=== PATIENT | female | born 1945 | race Caucasian/White ===

== ENCOUNTER 2019-02-20 18:30 | Emergency (ER) | payer MEDICARE, OTHER ==
[~2019-02-20] VITALS: Ht 160 cm; Wt 90.7 kg
--- OUTSIDE RECORDS SUMMARY | ~2019-02-20 | XMS | Clinical Summary ---
Demographics + + + | Address | [address] | | | [place] [address] | + + + | Home Phone | | + + + | Preferred Language | Unknown | + + + | Marital Status | | + + + | Synagogue Affiliation | Unknown | + + + | Race | Unknown | + + + | Ethnic Group | Unknown | + + + Author + + + | Author | [facility] | | | and [place] | + + + | Organization | [facility] | | | and [place] | + + + | Address | Unknown | + + + | Phone | Unavailable | + + + Support + + + + + | Name | Relationship | Address | Phone | + + + + + | Flor Henley | ECON | [address] | | | | | [place] | | | | | [address] | | + + + + + Care Team Providers + +------+ + | Care Aircraft Structural Fitter Name | Role | Phone | + +------+ + | Alvaro Bonilla MD | PP | | + +------+ + Allergies + + + + + + | Active Allergy | Reactions | Severity | Noted | Comments | | | | | Date | | + + + + + + | Adhesive & Tape | Other (See Comments) | Low | 10//20 | Redness from tape | | | | | 15 | | + + + + + + | Lisinopril | Other (See Comments) | Low | 10//20 | cough | | | | | 15 | | + + + + + + | Naproxen | Hives, Rash | Low | 09/09/20 | | | | | | 15 | | + + + + + + | Pregabalin | Hives, Rash | Low | 10/20 | | | | | | 15 | | + + + + + + | Rofecoxib | Hives, Rash | Low | 10/21/20 | | | | | | 15 | | + + + + + + | Sulfamethoxazole-Tri | Other (See Comments) | High | 09/09/20 | Shock and | | methoprim | | | 15 | unconsciousness | + + + + + + Current Medications + + +-------+---------+------+------+-------+ | Prescription | Sig. | Disp. | Refills | Star | End | Statu | | | | | | t | Date | s | | | | | | Date | | | + + +-------+---------+------+------+-------+ | atenolol | Take 50 mg by mouth | | | | | Activ | | (TENORMIN) 50 mg | Daily. | | | | | e | | tablet | | | | | | | + + +-------+---------+------+------+-------+ | traMADol (ULTRAM) | Take 50 mg by mouth | | | | | Activ | | 50 mg tablet | every 6 hours as | | | | | e | | | needed for Pain. | | | | | | + + +-------+---------+------+------+-------+ | atorvaSTATin | Take 20 mg by mouth | | | | | Activ | | (LIPITOR) 20 mg | nightly. | | | | | e | | tablet | | | | | | | + + +-------+---------+------+------+-------+ | furosemide (LASIX) | Take 40 mg by mouth | | | | | Activ | | 40 mg tablet | 2 times daily. | | | | | e | + + +-------+---------+------+------+-------+ | potassium chloride | Take 10 mEq by mouth | | | | | Activ | | (K-DUR,NURIA-CON) 10 | 2 times daily. | | | | | e | | MEQ ER tablet | | | | | | | + + +-------+---------+------+------+-------+ | Fexofenadine HCl | Take by mouth. As | | | | | Activ | | (RIKY ALLERGY PO) | needed | | | | | e | + + +-------+---------+------+------+-------+ | Multiple Vitamin | Take by mouth. | | | | | Activ | | (DAILY MULTIVITAMIN | | | | | | e | | PO) | | | | | | | + + +-------+---------+------+------+-------+ | | Take 1 tablet by | | | | | Activ | | HYDROcodone-acetamin | mouth every 6 hours | | | | | e | | ophen (NORCO) 5-325 | as needed for Pain. | | | | | | | mg per tablet | | | | | | | + + +-------+---------+------+------+-------+ | aspirin 325 mg | Take 325 mg by mouth | | | | | Activ | | tablet | Daily. | | | | | e | + + +-------+---------+------+------+-------+ | clopidogrel | Take 75 mg by mouth | | | | | Activ | | (PLAVIX) 75 mg | Daily. | | | | | e | | tablet | | | | | | | + + +-------+---------+------+------+-------+ Active Problems + + + | Problem | Noted Date | + + + | Depression | | + + + | Hypertension | | + + + | Hypercholesterolemia | | + + + | Fibromyalgia | | + + + Social History + +-------+ [...] + | Blood Pressure | 129/51 | 09/10/20150 PDT | + + + + | Pulse | 56 | 09/10/20151229 PDT | + + + + | Temperature | 36.8 C (98.2 F) | 09/10/2015 1029 PDT | + + + + | Respiratory Rate | 16 | 09/10/2015 1230 PDT | + + + + | Oxygen Saturation | 94% | 09/10/2015 1230 PDT | + + + + | Inhaled Oxygen | - | - | | Concentration | | | + + + + | Weight | 86.6 kg (191 lb) | 09/10/2015753 PDT | + + + + | Height | 160 cm (5' 3") | 09/10/2015753 PDT | + + + + | Body Mass Index | 33.83 | 09/10/2015753 PDT | + + + + Plan [...] | | | | | (#1) | 8 | | | + + + + + Results Not on filefrom Last 3 Months Insurance + +--------+ +--------+ +---------+ | Payer | Benefi | Subscriber | Type | Phone | Address | | | t Plan | ID | | | | | | / | | | | | | | Group | | | | | + +--------+ +--------+ +---------+ | MEDICARE | MEDICA | [id number] | Medica | [phone] | | | | RE | | re | [phone] | | | | PART A | | | | | | | AND B | | | | | + +--------+ +--------+ +---------+ | [employer] [place] | UNITED | [id number] | Indemn | [phone] | | | | OF | | ity | 1000 | | | | [place] | | | | | | | MDCR | | | | | | | SUPPL | | | | | + +--------+ +--------+ +---------+ + +--------+ +--------+ + + | Guarantor Name | Accoun | Relation to | Date | Phone | Billing Address | | | t Type | Patient | of | | | | | | | | | | + +--------+ +--------+ + + | FLOR HENLEY | Person | Self [birth year] Home: | [address] | | | [place] | | 1945 | [phone] | [place] [address] | | | [place] | | | [phone] | | + +--------+ +--------+ + +
--- OUTSIDE RECORDS SUMMARY | ~2019-02-20 | XMS | Clinical Summary ---
Demographics + + + | Address | [address] | | | [place] [address] | + + + | Home Phone | | + + + | Preferred Language | Unknown | + + + | Marital Status | | + + + | Methodist Affiliation | Unknown | + + + | Race | Unknown | + + + | Ethnic Group | Unknown | + + + Author + + + | Author | [facility] | + + + | Organization | [facility] | + + + | Address | Unknown | + + + | Phone | Unavailable | + + + Support + + + + + | Name | Relationship | Address | Phone | + + + + + | Bharath Henley | ECON | [address] | | | | | [place] | | | | | [address] | | + + + + + Care Team Providers + +------+ + | Care Route Rider Supervisor Name | Role | Phone | + [...] | Sulfur | Anaphylaxis | High | 08/15/20 | | | | | | 11 [...] +------+-------+ + | MEDICARE | MEDICA | [id number] | | | [address] | | | RE | | | | [place] [address] | | | IP-OP | | | | | + +--------+ +------+-------+ + | COMMERCIAL OTHER | COMMER | [id number] | | | | | | CIAL [...] | [address] | | | [place] | | 1945 | [phone] | [place] | | | [place] | | | [phone] | [phone] | + +--------+ +--------+ + +
--- OUTSIDE RECORDS SUMMARY | ~2019-02-20 | XMS | Clinical Summary ---
Demographics + + + | Address | [address] | | | [place] [address] | + + + | Home Phone | | + + + | Preferred Language | Unknown | + + + | Marital Status | | + + + | Buddhism Affiliation | Unknown | + + + | Race | Unknown | + + + | Ethnic Group | Unknown | + + + Author + + + | Author | [facility] | + + + | Organization | [facility] | + + + | Address | Unknown | + + + | Phone | Unavailable | + + + Support + + + + + | Name | Relationship | Address | Phone | + + + + + | Bharath Henley | ECON | [address] | | | | | [place] | | | | | [address] | | + + + + + Care Team Providers + +------+ + | Care Tapper Supervisor Name | Role | Phone | [...] +------+-------+ + | MEDICARE | MEDICA | [id number] | | | [address] | | | RE | | | | [place] [address] | | | IP-OP | | | | | + +--------+ +------+-------+ + | COMMERCIAL OTHER | COMMER | [id number] | | | | | | CIAL [...] | | [place] | | 1945 | [phone] | [place] | | | [place] | | | [phone] | [phone] | + +--------+ +--------+ + +
--- OUTSIDE RECORDS SUMMARY | ~2019-02-20 | XMS | Clinical Summary ---
Demographics + + + | Address | [address] | | | [place] [address] | + + + | Home Phone | | + + + | Preferred Language | Unknown | + + + | Marital Status | | + + + | Mandaeism Affiliation | Unknown | + + + | Race | Unknown | + + + | Ethnic Group | Unknown | + + + Author + + + | Author | [facility] | | | and [place]jandroana | + + + | Organization | [facility] | | | and Ale[place]andro[place] [...] [place] | | | | | [address] | | + + + + + Care Team Providers + +------+ + | Care Vet Assistant Name | Role | Phone | [...] +--------+ +---------+ | MEDICARE | MEDICA | [id number] | Medica | [phone] | | | | RE | | re | [phone] | | | | PART A | | | | | | | AND B | | | | | + +--------+ +--------+ +---------+ | [employer] [place] | [place] | [id number] | Indemn | [phone] | | | | OF | | ity | [address] | | | | [place] | | | | | | | [...] | | [place] | | 1945 | [phone] | [place] [address] | | | [place] | | | [phone] | | + +--------+ +--------+ + +
[~2019-02-20 18:30] MED LIST: ALLEGRA ALLERG180 MG PO; ASPIRIN325 MG PO; CALCIUM + VITA1 EACH PO; CENTRUM SILVER1 EACH PO; DOCUSATE SODIU100 MG PO; GLUCOPHAGE XR750 MG PO; KLOR-CON 1010 MEQ PO; LASIX40 MG PO; LIPITOR20 MG PO; NASACORT AQ16.5 GM NAS; PATANOL5 ML OU; PLAVIX75 MG PO; PROZAC20 MG PO; PSEUDOEPHEDRINE60 MG PO; TENORMIN50 MG PO; TRAMADOL HCL50 MG PO; VICODIN 5-3001 EACH PO; VICODIN 5-5001 EACH PO; VITAMIN D31000 UNI1 PO
[2019-02-20] MEDS ORDERED: NEURONTIN300 MG PO (19:04)
[2019-02-20] MEDS ORDERED: VITAMIN D-32000 UNIT PO (19:06)
[2019-02-20] MEDS ORDERED: MEMANTINE HCL10 MG PO (19:06)
[2019-02-20] MEDS ORDERED: OCUVEL CAPSULE1 EACH PO (19:07)
[2019-02-20] MEDS ORDERED: FLUOXETINE HCL10 MG PO (19:07)
[2019-02-20] MEDS ORDERED: CRESTOR10 MG PO (19:08)
[2019-02-20] MEDS ORDERED: LOSARTAN POTAS100 MG PO (19:08)
--- NOTE | 2019-02-21 15:33 | EKG ---
[facility] [address] [place], [place] [address] Signed Sinus bradycardia with marked sinus arrhythmia Otherwise normal ECG No previous ECGs available Confirmed by MILENA SOLORZANO DO ([id number]) on 02/21/2019 3:33:35 PM Electronically Signed By: MILENA SOLORZANO DO 02/21/19 1533 PATIENT NAME: STEVIE HENLEY JACK Electrocardiogram DATE OF : 45 PHYSICIAN: MILENA SOLORZANO DO REPORT #: [id number] REPORT IS CONFIDENTIAL AND NOT TO BE RELEASED WITHOUT AUTHORIZATION
== END 2019-02-21 01:34 | disposition home or self-care (01) ==
LOC: ED 18:30
DX: R07.89 Other chest pain (principal); I10 Essential (primary) hypertension; Z87.891 Personal history of nicotine dependence; Z88.2 Allergy status to sulfonamides; Z88.8 Allergy status to other drugs, medicaments and biological substances; Z79.899 Other long term (current) drug therapy; Z79.82 Long term (current) use of aspirin
CPT/HCPCS: 71045; 80053; 84484; 85025; 85379; 93005; 93010; 96374; 96375; 99285-25; J2405; J3010

== ENCOUNTER 2019-10-03 11:58 | Emergency (ER) | payer MEDICARE, OTHER ==
[~2019-10-03] VITALS: Ht 160 cm; Wt 88.5 kg
--- OUTSIDE RECORDS SUMMARY | ~2019-10-03 | XMS | Encounter Summary ---
Demographics + + + | Address | [address] | | | [place] [address] | + + + | Home Phone | | + + + | Preferred Language | Unknown | + + + | Marital Status | | + + + | Presybeterian Affiliation | Unknown | + + + | Race | Unknown | + + + | Ethnic Group | Unknown | + + + Author + + + | Author | [facility] | | | and [place]andro[place] | + + + | Organization | [facility] | | | and [place] | + + + | Address | Unknown | + + + | Phone | Unavailable | + + + Support + + + + + | Name | Relationship | Address | Phone | + + + + + | Bharath Hill | ECON | [address] | | | | | [place], [place] | | | | | [address] | | + + + + + Care Team Providers + +------+ + | Care Paralegal Assistant Name | Role | Phone | + +------+ + | Alvaro Bonilla MD | PCP | | + +------+ + Reason for Visit Auth/Cert +--------+--------+ + + + + | Status | Reason | Specialty | Diagnoses / | Referred By | Referred To | | | | | Procedures | Contact | Contact | +--------+--------+ + + + + | Closed | | | Diagnoses | | Sheri, | | | | | SHARI II | | Wade England MD | | | | | (vulvar | | [id number] | | | | | intraepithel | | [place] | | | | | ial | | [place] | | | | | neoplasia | | [place], [place]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 | | [address] | | | | | (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 | | [phone] | | | | | ial | | Fax: | | | | | neoplasia | | [phone] | | | | | II) | | | | | | | Procedures | | | | | | | Not Provided | | | +--------+--------+ + + + + Encounter Details +--------+---------+ + + + | Date | Type | Department | Care Team | Description | +--------+---------+ + + + | 09/10/ | Surgery | [facility] | Wade Wade, | [facility] | | 2014 | | MED [facility] INTRA OP | [id number] | of Vulva | | | | [address] | [place] | | | | | [place], [place] | [place] [address] | | | | | [address] | [phone] | | | | | [phone] | | | +--------+---------+ + + + Social History + +-------+ +--------+ + | Tobacco Use | Types | Packs/Day | Years | Date | | | | | Used | | + +-------+ +--------+ + | Former Smoker | | | 2 | Quit: 11/20/1969 | + +-------+ +--------+ + + + +---------+ + | Alcohol Use | Drinks/Week | oz/Week | Comments | + + +---------+ + | Yes | | | 2 drinks per year | + + +---------+ + + + + | Sex Assigned at | Date Recorded | | | | + + + | Not on file | | + + + + + + + | Job Start Date | Occupation | Industry | + + + + | Not on file | Not on file | Not on file | + + + + + + + + | Travel History | Travel Start | Travel End | + + + + + + | No recent travel history available. | + + documented as of this encounter Last Filed Vital Signs + + + + + | Vital Sign | Reading | Time Taken | Comments | + + + + + | Blood Pressure | 129/51 | 09/10/2015 12:30 PM | | | | | PDT | | + + + + + | Pulse | 56 | 09/10/2015 12:30 PM | | | | | PDT | | + + + + + | Temperature | 36.8 C (98.2 F) | 09/10/2015 10:29 AM | | | | | PDT | | + + + + + | Respiratory Rate | 16 | 09/10/2015 12:30 PM | | | | | PDT | | + + + + + | Oxygen Saturation | 94% | 09/10/2015 12:30 PM | | | | | PDT | | + + + + + | Inhaled Oxygen | - | - | | | Concentration | | | | + + + + + | Weight | 86.6 kg (191 lb) | 09/10/2015 7:54 AM | | | | | PDT | | + + + + + | Height | 160 cm (5' 3") | 09/10/2015 7:54 AM | | | | | PDT | | + + + + + | Body Mass Index | 33.83 | 09/10/2015 7:54 AM | | | | | PDT | | + + + + + documented in this encounter Medications at Time of Discharge + + + +---------+ + + | Medication | Sig | Dispensed | Refills | Start | End Date | | | | | | Date | | + + + +---------+ + + | aspirin 325 mg | Take 325 mg by mouth | | 0 | | | | tablet | Daily. | | | | | + + + +---------+ + + | atenolol | Take 50 mg by mouth | | 0 | | | | (TENORMIN) 50 mg | Daily. | | | | | | tablet | | | | | | + + + +---------+ + + | atorvaSTATin | Take 20 mg by mouth | | 0 | | | | (LIPITOR) 20 mg | nightly. | | | | | | tablet | | | | | | + + + +---------+ + + | clopidogrel | Take 75 mg by mouth | | 0 | | | | (PLAVIX) 75 mg | Daily. | | | | | | tablet | | | | | | + + + +---------+ + + | Fexofenadine HCl | Take by mouth. As | | 0 | | | | (RIKY ALLERGY PO) | needed | | | | | + + + +---------+ + + | furosemide (LASIX) | Take 40 mg by mouth | | 0 | | | | 40 mg tablet | 2 times daily. | | | | | + + + +---------+ + + | | Take 1 tablet by | | 0 | | | | HYDROcodone-acetamin | mouth every 6 hours | | | | | | ophen (NORCO) 5-325 | as needed for Pain. | | | | | | mg per tablet | | | | | | + + + +---------+ + + | Multiple Vitamin | Take by mouth. | | 0 | | | | (DAILY MULTIVITAMIN | | | | | | | PO) | | | | | | + + + +---------+ + + | potassium chloride | Take 10 mEq by mouth | | 0 | | | | (KMULUGETA KELLEY) 10 | 2 times daily. | | | | | | MEQ ER tablet | | | | | | + + + +---------+ + + | traMADol (ULTRAM) | Take 50 mg by mouth | | 0 | | | | 50 mg tablet | every 6 hours as | | | | | | | needed for Pain. | | | | | + + + +---------+ + + | warfarin | Take 1 tablet by | | 0 | 08/15/20 | | | (COUMADIN) 1 mg | mouth daily. | | | 11 | | | tablet | | | | | | + + + +---------+ + + documented as of this encounter Plan of Treatment Not on filedocumented as of this encounter Procedures + +--------+ + + + | Procedure Name | Priori | Date/Time | Associated Diagnosis | Comments | | | ty | | | | + +--------+ + + + | EXTRA GREEN TOP TUBE | Routin | 09/10/2015 | | Results for this | | | e | 9:34 AM | | procedure are in the | | | | PDT | | results section. | + +--------+ + + + | REPAIR A&P | | 09/10/2015 | SHARI II (vulvar | | | COLPORRHAPHY | | 9:17 AM | intraepithelial | | | | | PDT | neoplasia II) | | + +--------+ + + + | URINALYSIS WITH | Routin | 09/10/2015 | | Results for this | | MICROSCOPIC WITH | e | 8:51 AM | | procedure are in the | | CULTURE IF INDICATED | | PDT | | results section. | + +--------+ + + + | CBC NO DIFFERENTIAL | Routin | 09/10/2015 | | Results for this | | | e | 8:51 AM | | procedure are in the | | | | PDT | | results section. | + +--------+ + + + | CULTURE, URINE | Routin | 09/10/2015 | | Results for this | | | e | 8:51 AM | | procedure are in the | | | | PDT | | results section. | + +--------+ + + + | SURGICAL PATHOLOGY | Routin | 09/10/2015 | | Results for this | | EXAM | e | 12:00 AM | | procedure are in the | | | | PDT | | results section. | + +--------+ + + + documented in this encounter Results EXTRA GREEN TOP TUBE (09/10/2015 9:34 AM PDT) + +-------+ + + + | Component | Value | Ref Range | Performed | Pathologist | | | | | At | Signature | + +-------+ + + + | Extra Green | Done | | [facility] | | | Top Tube | | | [facility] | [facility] | [facility] - | | | | | | LABORATORY | | + +-------+ + + + + + | Specimen | + + | Blood | + + + + + + + | Performing | Address | City/State/Zipcode | Phone Number | | Organization | | | | + + + + + | [facility] | [address] | [place] | [phone] | | [facility] | | [address] | | | - LABORATORY | | | | + + + + + Culture, Urine (09/10/2015 8:51 AM PDT) + + + + + + | Component | Value | Ref Range | Performed | Pathologist | | | | | At | Signature | + + + + + + | Culture | 100,000 CFU/ml | | [facility] | | | | Klebsiella pneumoniae | | [facility] | | | | | | [facility] | | | | | | CENTER - | | | | | | LABORATORY | | + + + + + + + + | Specimen | + + | Urine - Urine | | specimen obtained by | | clean catch | | procedure (specimen) | + + + + +--------+ + | Organism | Antibiotic | Method | Susceptibility | + + +--------+ + | Klebsiella | Ampicillin | | Resistant | | pneumoniae | | | | + + +--------+ + | Klebsiella | Ampicillin + | | <=2: Sensitive | | pneumoniae | Sulbactam | | | + + +--------+ + | Klebsiella | Cefazolin | | <=4: Sensitive | | pneumoniae | | | | + + +--------+ + | Klebsiella | Cefoxitin | | <=4: Sensitive | | pneumoniae | | | | + + +--------+ + | Klebsiella | Ceftazidime | | <=1: Sensitive | | pneumoniae | | | | + + +--------+ + | Klebsiella | Ceftriaxone | | <=1: Sensitive | | pneumoniae | | | | + + +--------+ + | Klebsiella | Ciprofloxacin | | <=0.25: Sensitive | | pneumoniae | | | | + + +--------+ + | Klebsiella | Ertapenem | | <=0.5: Sensitive | | pneumoniae | | | | + + +--------+ + | Klebsiella | Gentamicin | | <=1: Sensitive | | pneumoniae | | | | + + +--------+ + | Klebsiella | Meropenem | | <=0.25: Sensitive | | pneumoniae | | | | + + +--------+ + | Klebsiella | Nitrofurantoin | | 32: Sensitive | | pneumoniae | | | | + + +--------+ + | Klebsiella | Tobramycin | | <=1: Sensitive | | pneumoniae | | | | + + +--------+ + | Klebsiella | Trimethoprim + | | <=20: Sensitive | | pneumoniae | Sulfamethoxazole | | | + + +--------+ + + + + + + | Performing | Address | City/State/Zipcode | Phone Number | | Organization | | | | + + + + + | [facility] | [address] | [place] | [phone] | | [facility] | | [address] | | | - LABORATORY | | | | + + + + + Urinalysis with Microscopic with Culture if Indicated (09/10/2015 8:51 AM PDT) + + + + + + | Component | Value | Ref Range | Performed | Pathologist | | | | | At | Signature | + + + + + + | Color | Yellow | Light Yellow, | [facility] | | | | | Yellow | [facility] | | | | | | [facility] | | | | | | C[facility] - | | | | | | LABORATORY | | + + + + + + | Clarity | Hazy (A) | Clear | [facility] | | | | | | [facility] | | | | | | [facility] | | | | | | C[facility] - | | | | | | LABORATORY | | + + + + + + | pH, Urine | 6.0 | 5.0 - 8.0 | [facility] | | | | | | [facility] | | | | | | [facility] | | | | | | C[facility] - | | | | | | LABORATORY | | + + + + + + | Specific | 1.025 | 1.001 - 1.030 | [facility] | | | Spencer | | | [facility] | | | | | | [facility]ICAL | | | | | | CENTER - | | | | | | LABORATORY | | + + + + + + | Protein, | Negative | Negative | [facility] | | | Urine | | | [facility] | | | | | | [facility] | | | | | | CENTER - | | | | | | LABORATORY | | + + + + + + | Blood, | Trace (A) | Negative | [facility] | | | Urine | | | [facility] | | | | | | [facility] | | | | | | CENTER - | | | | | | LABORATORY | | + + + + + + | Glucose, | Negative | Negative | [facility] | | | Urine | | | [facility] | | | | | | [facility] | | | | | | CENTER - | | | | | | LABORATORY | | + + + + + + | Ketones, | Negative | Negative | [facility] | | | Urine | | | [facility] | | | | | | [facility] | | | | | | CENTER - | | | | | | LABORATORY | | + + + + + + | Bilirubin, | Negative | Negative | [facility] | | | Urine | | | [facility] | | | | | | [facility]ICAL | | | | | | CENTER - | | | | | | LABORATORY | | + + + + + + | Nitrite, | Negative | Negative | [facility] | | | Urine | | | [facility] | | | | | | [facility] | | | | | | CENTER - | | | | | | LABORATORY | | + + + + + + | Leukocyte | Large (A) | Negative | [facility] | | | Esterase, | | | [facility] | | | Urine | | | MEDICAL | | | | | | CENTER - | | | | | | LABORATORY | | + + + + + + | Urobilinoge | 0.2 E.U./dL | 0.2 E.U./dL, | [facility] | | | n, Urine | | 1.0 E.U./dL | [facility] | | | | | | MEDICAL | | | | | | CENTER - | | | | | | LABORATORY | | + + + + + + | WBC UA | 15-25 (A) | 0 - 2 /HPF | [facility] | | | | | | [facility] | | | | | | [facility] | | | | | | CENTER - | | | | | | LABORATORY | | + + + + + + | RBC UA | 2-5 (A) | 0 - 2 /HPF | [facility] | | | | | | [facility] | | | | | | MEDICAL | | | | | | CENTER - | | | | | | LABORATORY | | + + + + + + | SQUAMOUS | 5-10 (A) | 0 - 2 /LPF | [facility] | | | EPITHELIAL | | | [facility] | | | UA | | | MEDICAL | | | | | | CENTER - | | | | | | LABORATORY | | + + + + + + | BACTERIA UA | 3+ (A) | Negative /HPF | [facility] | | | | | | [facility] | | | | | | [facility]ICAL | | | | | | CENTER - | | | | | | LABORATORY | | + + + + + + | URINE | Urine Culture Set Up | | [facility] | | | COMMENT | | | [facility] | | | | | | [facility]ICAL | | | | | | CENTER - | | | | | | LABORATORY | | + + + + + + + + | Specimen | + + | Urine - Urine | | specimen obtained by | | clean catch | | procedure (specimen) | + + + + + + + | Performing | Address | City/State/Zipcode | Phone Number | | Organization | | | | + + + + + | [facility] | [address] | [place] | [phone] | | [facility] | | [address] | | | - LABORATORY | | | | + + + + + CBC no Differential (09/10/2015 8:51 AM PDT) + +-------+ + + + | Component | Value | Ref Range | Performed | Pathologist | | | | | At | Signature | + +-------+ + + + | WBC | 6.1 | 4.0 - 11.0 K/uL | [facility] | | | | | | [facility] | | | | | | [facility] | | | | | | [facility] - | | | | | | LABORATORY | | + +-------+ + + + | RBC | 4.14 | 3.70 - 5.20 | [facility] | | | | | M/uL | [facility] | | | | | | [facility] | | | | | | CENTER - | | | | | | LABORATORY | | + +-------+ + + + | Hemoglobin | 12.5 | 11.5 - 16.0 | [facility] | | | | | g/dL | [facility] | | | | | | [facility] | | | | | | CENTER - | | | | | | LABORATORY | | + +-------+ + + + | Hematocrit | 37.0 | 34.0 - 47.0 % | [facility] | | | | | | [facility] | | | | | | [facility] | | | | | | C[facility] - | | | | | | LABORATORY | | + +-------+ + + + | MCV | 89.3 | 83.0 - 101.0 fL | [facility] | | | | | | [facility] | | | | | | [facility] | | | | | | C[facility] - | | | | | | LABORATORY | | + +-------+ + + + | MCH | 30.1 | 28.0 - 35.0 pg | [facility] | | | | | | [facility] | | | | | | [facility] | | | | | | [facility] - | | | | | | LABORATORY | | + +-------+ + + + | MCHC | 33.8 | 32.0 - 36.0 | [facility] | | | | | g/dL | [facility] | | | | | | [facility] | | | | | | CENTER - | | | | | | LABORATORY | | + +-------+ + + + | RDW-CV | 13.5 | <15.0 % | [facility] | | | | | | [facility] | | | | | | [facility] | | | | | | CENTER - | | | | | | LABORATORY | | + +-------+ + + + | Platelet | 204 | 140 - 440 K/uL | [facility] | | | Count | | | [facility] | | | [facility] | [facility] | | | | | | CENTER - | | | | | | LABORATORY | | + +-------+ + + + | MPV | 7.5 | fL | [facility] | | | | | | [facility] | | | | | | [facility] | | | | | | CENTER - | | | | | | LABORATORY | | + +-------+ + + + + + | Specimen | + + | Blood | + + + + + + + | Performing | Address | City/State/Zipcode | Phone Number | | Organization | | | | + + + + + | [facility] | [address] | [place] | [phone] | | [facility] | | [address] | | | - LABORATORY | | | | + + + + + Surgical Pathology Exam (09/10/2015 12:00 AM PDT) + + | Specimen | + + | | + + + + + | Narrative | Performed At | + + + | SPECIMEN(S): A LEFT VULVAR EXCISION SPECIMEN SOURCE: A. LEFT | [facility] | | VULVAR EXCISION CLINICAL HISTORY: N90.1 (moderate vulvar | [facility] | | dysplasia) FINAL PATHOLOGIC DIAGNOSIS: Left vulva, excisional | | | biopsy: - Changes consistent with previous biopsy; reactive and | | | regenerative epithelial changes adjacent to biopsy site; negative for | | | residual dysplasia. DNN:alix:C2NR GROSS DESCRIPTION: The | | | specimen is submitted in formalin and properly identified, designated | | | "vulvar excision, left labia". The specimen consists of a 4.2 x 1.2 x | | | 0.2 cm ellipse of la somewhat wrinkled mucosa. Centrally there is a | | | healed round defect 0.5 cm in diameter. The resection margin is inked | | | black and is submitted in serial cross section in three cassettes. | | | DDN:[facility] MICROSCOPIC EXAMINATION: Histologic sections of all | | | submitted blocks are examined by light microscopy. These findings, | | | together with the gross examination, support the pathologic diagnosis. | | | PERFORMING LABORATORY: Tissue processing and slide preparation | | | were performed by [facility], [address], | | | [place] [address] (Coffee Sommelier: Ascencion Juan M.D.; CLIA#: | | | [id number]). Professional interpretation was performed by [facility] | | | [facility], [address], [place] [address] | | | (Coffee Sommelier: Ascencion Juan M.D.; CLIA#: [id number]). | | | Diagnostician: Dread Schmitz MD Pathologist Electronically Signed | | | 09/11/2015 | | + + + + +---------+ + + | Performing | Address | City/State/Zipcode | Phone Number | | Organization | | | | + +---------+ + + | [facility] | | | | | [facility] | | | | + +---------+ + + documented in this encounter Visit Diagnoses + + | Diagnosis | + + | SHARI II (vulvar intraepithelial neoplasia II) Vulvar intraepithelial neoplasia II [SHARI | | II] | + + documented in this encounter Administered Medications + +--------+ + +------+ + | Medication Order | MAR | Action | Dose | Rate | Site | | | Action | Date | | | | + +--------+ + +------+ + | bacitracin topical ointment | Given | 09/10/20 | 1 | | Surgical | | PRN, Starting Rachael 09/10/15 at | | 15 10:18 | Applicat | | Site | | 1018, Intra-op | | AM PDT | ion | | | + +--------+ + +------+ + +---+---+ | | | +---+---+ + +-------+ +--------+---+ + | bupivacaine (MARCAINE) 0.5% | Given | 09/10/20 | 10 mLs | | Surgical | | injection PRN, Starting Rachael | | 15 10:17 | | | Site | | 09/10/15 at 1017, Intra-op | | AM PDT | | | | + +-------+ +--------+---+ + +---+---+ | | | +---+---+ + +---------+ +---+-------+---+ | lactated ringers (LR) infusion | New Bag | 09/10/20 | | 100 | | | at 10-100 mL/hr, Intravenous, | | 15 8:53 | | mL/hr | | | CONTINUOUS, Starting Rachael 09/10/15 | | AM PDT | | | | | at 0845, TKO., Pre-op | | | | | | + +---------+ +---+-------+---+ +---+---+ | | | +---+---+ + +-------+ + +---+ + | vasopressin (PITRESSIN) | Given | 09/10/20 | 20 Units | | Surgical | | injection PRN, Starting Rachael | | 15 10:17 | | | Site | | 09/10/15 at 1017, Intra-op | | AM PDT | | | | + +-------+ + +---+ + +---+---+ | | | +---+---+ documented in this encounter
--- OUTSIDE RECORDS SUMMARY | ~2019-10-03 | XMS | Encounter Summary ---
Demographics + + + | Address | [address] | | | [place] [address] | + + + | Home Phone | | + + + | Preferred Language | Unknown | + + + | Marital Status | | + + + | Synagogue Affiliation | Unknown | + + + | Race | Unknown | + + + | Ethnic Group | Unknown | + + + Author + + + | Author | [facility] | | | and [place] | + + + | Organization | [facility] | | | and [place] | + + + | Address | Unknown | + + + | Phone | Unavailable | + + + Support + + + + + | Name | Relationship | Address | Phone | + + + + + | Bharath Hill | ECON | [address] | | | | | [place], [place] | | | | | [address] | | + + + + + Care Team Providers + +------+ + | Care Slat Basket Maker Machine Name | Role | Phone | + +------+ + PCP | Unavailable | + +------+ + Encounter Details +--------+ + + + + | Date | Type | Department | Care Team | Description | +--------+ + + + + | 10/12/ | Hospital | [facility] | | | | 2008 | Encounter | MED CTR XRAY [address] | | | | | | [address] [place] | | | | | | [place] [address] | | | | | | [phone] | | | +--------+ + + + + Social History + +-------+ +--------+------+ | Tobacco Use | Types | Packs/Day | Years | Date | | | | | Used | | + +-------+ +--------+------+ | Never Assessed | | | | | + +-------+ +--------+------+ + + + | Sex Assigned at [...] Not on filedocumented as of this encounter Visit Diagnoses Not on filedocumented in this encounter"
--- OUTSIDE RECORDS SUMMARY | ~2019-10-03 | XMS | Encounter Summary ---
Demographics + + + | Address | [address] | | | [place] [address] | + + + | Home Phone | | + + + | Preferred Language | Unknown | + + + | Marital Status | | + + + | Yazdanism Affiliation | Unknown | + + + | Race | Unknown | + + + | Ethnic Group | Unknown | + + + Author + + + | Author | [facility] | | | and [place] | + + + | Organization | [facility] | | | and [place] | + + + | Address | Unknown | + + + | Phone | Unavailable | + + + Support + + + + + | Name | Relationship | Address | Phone | + + + + + | Bharath Hill | ECON | [address] | | | | | [place], [place] | | | | | [address] | | + + + + + Care Team Providers + +------+ + | Care Preventive Medicine Specialist Name | Role | Phone | + +------+ + PCP | Unavailable | + +------+ + Encounter Details +--------+ + + + + | Date | Type | Department | Care Team | Description | +--------+ + + + + | 10/27/ | Hospital | [facility] | | | | 2009 | Encounter | MED CTR MP INTRA OP | | | | | | [address] | | | | | | [place] | | | | | | [address] | | | | | | [phone] | | | +--------+ + + + [...]
--- OUTSIDE RECORDS SUMMARY | ~2019-10-03 | XMS | Clinical Summary ---
Demographics + + + | Address | [address] | | | [place] [address] | + + + | Home Phone | | + + + | Preferred Language | Unknown | + + + | Marital Status | | + + + | Druze Affiliation | Unknown | + + + | Race | Unknown | + + + | Ethnic Group | Unknown | + + + Author + + + | Author | [facility] | | | and [place] | + + + | Organization | [facility] | | | and [...] [place], [place] | | | | | [address] | | + + + + + Care Team Providers + +------+ + | Care Gun Fertilizer Name | Role | Phone | + +------+ + | Alvaro Bonilla MD | PCP | | + +------+ + Allergies + + + + + + | Active Allergy | Reactions | Severity | Noted | Comments | | | | | Date | | + + + + + + | Adhesive & Tape | Other (See Comments) | Medium | 09/09/20 | Redness from tape | | | | | 15 | Redness from tape | + + + + + + | Lisinopril | Other (See | Low | 07/25/20 | cough | | | Comments), Cough | | 13 | | + + + + + + | Naproxen | Hives, Rash | Medium | 07/25/20 | | | | | | 13 | | + + + + + + | Pregabalin | Hives, Rash, | Medium | 07/25/20 | | | | Swelling | | 13 | | + + + + + + | Rofecoxib | Hives, Rash | Medium | 07/25/20 | | | | | | 13 | | + + + + + + | Sulfamethoxazole-Tri | Other (See | High | 07/25/20 | Shock and | | methoprim | Comments), | | 13 | unconsciousness | | | Anaphylaxis | | | | + + + + + + | Sulfur | Anaphylaxis | High | 07/04/20 | | | | | | 11 | | + + + + + + Medications + + + +---------+------+------+-------+ | Medication | Sig | Dispensed | Refills | Star | End | Statu | | | | | | t | Date | s | | | | | | Date | | | + + + +---------+------+------+-------+ | atenolol | Take 50 mg by mouth | | 0 | | | Activ | | (TENORMIN) 50 mg | Daily. | | | | | e | | tablet | | | | | | | + + + +---------+------+------+-------+ | traMADol (ULTRAM) | Take 50 mg by mouth | | 0 | | | Activ | | 50 mg tablet | every 6 hours as | | | | | e | | | needed for Pain. | | | | | | + + + +---------+------+------+-------+ | atorvaSTATin | Take 20 mg by mouth | | 0 | | | Activ | | (LIPITOR) 20 mg | nightly. | | | | | e | | tablet | | | | | | | + + + +---------+------+------+-------+ | furosemide (LASIX) | Take 40 mg by mouth | | 0 | | | Activ | | 40 mg tablet | 2 times daily. | | | | | e | + + + +---------+------+------+-------+ | potassium chloride | Take 10 mEq by mouth | | 0 | | | Activ | | (K-DUR,JULIANEOR-CON) 10 | 2 times daily. | | | | | e | | MEQ ER tablet | | | | | | | + + + +---------+------+------+-------+ | Fexofenadine HCl | Take by mouth. As | | 0 | | | Activ | | (RIKY ALLERGY PO) | needed | | | | | e | + + + +---------+------+------+-------+ | Multiple Vitamin | Take by mouth. | | 0 | | | Activ | | (DAILY MULTIVITAMIN | | | | | | e | | PO) | | | | | | | + + + +---------+------+------+-------+ | | Take 1 tablet by | | 0 | | | Activ | | HYDROcodone-acetamin | mouth every 6 hours | | | | | e | | ophen (NORCO) 5-325 | as needed for Pain. | | | | | | | mg per tablet | | | | | | | + + + +---------+------+------+-------+ | aspirin 325 mg | Take 325 mg by mouth | | 0 | | | Activ | | tablet | Daily. | | | | | e | + + + +---------+------+------+-------+ | clopidogrel | Take 75 mg by mouth | | 0 | | | Activ | | (PLAVIX) 75 mg | Daily. | | | | | e | | tablet | | | | | | | + + + +---------+------+------+-------+ | fexofenadine | Take 180 mg by mouth | | 0 | | | Activ | | (RIKY) 180 mg | daily. | | | | | e | | tablet | | | | | | | + + + +---------+------+------+-------+ | atorvaSTATin | Take 20 mg by mouth | | 0 | | | Activ | | (LIPITOR) 20 mg | daily. | | | | | e | | tablet | | | | | | | + + + +---------+------+------+-------+ | warfarin | Take 1 tablet by | | 0 | 09/2 | | Activ | | (COUMADIN) 1 mg | mouth daily. | | | 6/20 | | e | | tablet | | | | 11 | | | + + + +---------+------+------+-------+ | triamcinolone | 2 sprays by Nasal | | 0 | | | Activ | | (NASACORT) 55 | route daily. | | | | | e | | mcg/nasal spray | | | | | | | + + + +---------+------+------+-------+ | pseudoePHEDrine | Take 60 mg by mouth | | 0 | | | Activ | | (SUDAFED) 30 mg | 2 (two) times daily | | | | | e | | tablet | as needed. | | | | | | + + + +---------+------+------+-------+ | potassium chloride | Take 10 mEq by mouth | | 0 | | | Activ | | (MICRO-K) 10 mEq CR | 2 (two) times | | | | | e | | capsule | daily. | | | | | | + + + +---------+------+------+-------+ | olopatadine | Place 1 drop into | | 0 | | | Activ | | (PATANOL) 0.1% | both eyes as needed. | | | | | e | | ophthalmic solution | | | | | | | + + + +---------+------+------+-------+ | Multiple | Take 1 tablet by | | 0 | | | Activ | | Vitamins-Minerals | mouth daily. | | | | | e | | (MULTIVITAMIN WITH | | | | | | | | MINERALS) tablet | | | | | | | + + + +---------+------+------+-------+ | losartan (COZAAR) | Take 50 mg by mouth | | 0 | | | Activ | | 50 mg tablet | daily. | | | | | e | + + + +---------+------+------+-------+ | gabapentin | Take 100 mg by mouth | | 0 | | | Activ | | (NEURONTIN) 100 mg | 3 (three) times | | | | | e | | capsule | daily. | | | | | | + + + +---------+------+------+-------+ | FLUoxetine | Take 10 mg by mouth | | 0 | | | Activ | | (PROZAC) 10 mg | nightly. | | | | | e | | capsule | | | | | | | + + + +---------+------+------+-------+ | docusate sodium | Take 100 mg by mouth | | 0 | | | Activ | | (COLACE) 100 mg | 2 (two) times daily | | | | | e | | capsule | as needed. | | | | | | + + + +---------+------+------+-------+ | cholecalciferol | Take 1,000 Units by | | 0 | | | Activ | | (VITAMIN D-3) 1,000 | mouth daily. | | | | | e | | units capsule | | | | | | | + + + +---------+------+------+-------+ | | Take 1 tablet by | | 0 | | | Activ | | acetaminophen-codein | mouth every 3 | | | | | e | | e (TYLENOL #3) | (three) hours as | | | | | | | 300-30 mg per tablet | needed. | | | | | | + + + +---------+------+------+-------+ | OYSTER SHELL PO | Take 600 mg by mouth | | 0 | | | Activ | | | 2 (two) times | | | | | e | | | daily. | | | | | | + + + +---------+------+------+-------+ | UNABLE TO FIND | Take 325 mg by mouth | | 0 | | | Activ | | | daily. | | | | | e | + + + +---------+------+------+-------+ Active Problems + + + | Problem | Noted Date | + + + | Depression | | + + + | Hypertension | | + + + | Hypercholesterolemia | | + + + | Fibromyalgia | | + + + Family History + + +------+ + | Medical History | Relation | Name | Comments | + + +------+ + | Coronary artery | Father | | | | disease | | | | + + +------+ + | Heart disease | Father | | | + + +------+ + | Alzheimer's disease | Mother | | | + + +------+ + | Coronary artery | Mother | | | | disease | | | | + + +------+ + | Heart disease | Mother | | | + + +------+ + | Hypertension | Mother | | | + + +------+ + + +------+ + + | Relation | Name | Status | Comments | + +------+ + + | Father | | | | + +------+ + + | Father | | | | + +------+ + + | Mother | | | | + +------+ + + | Mother | | | | + +------+ + + Social History + +-------+ +--------+ + | Tobacco Use | Types | Packs/Day | Years | Date | | | | | Used | | + +-------+ +--------+ + | Former Smoker | | | 2 | Quit: 11/20/1969 | + +-------+ +--------+ + + + | Comments: quit 40 yrs ago | + + + + +---------+ + | Alcohol Use | Drinks/Week | oz/Week | Comments | + + +---------+ + | Yes | | | Alcoholic | | | | | Drinks/day: per | | | | | month | + + +---------+ + + + [...] recent travel history available. | + + Last Filed Vital Signs + + + + + | Vital Sign | Reading | Time Taken | Comments | + + + + + | Blood Pressure | 166/83 | 08/09/2018 3:45 PM | | | | | PDT | | + + + + + | Pulse | 61 | 08/09/2018 3:45 PM | | | | | PDT [...] | | + + + + + Plan of Treatment + + + + + | Health Maintenance | Due Date | Last Done | Comments | + + + + + | Vaccine: | | | | | Dtap/Tdap/Td (1 - | 4 | | | | Tdap) | | | | + + + + + | Vaccine: Zoster (1 | | | | | of 2) | 5 | | | + + + + + | Breast Cancer | | | | | Screening | 0 | | | + + + + + | Vaccine: | | | | | Pneumococcal 65+ (1 | 0 | | | | of 2 - PCV13) | | | | + + + + + | Vaccine: Influenza | | | | | (#1) | 9 | | | + + + + + Results Not on filefrom Last 3 Months Insurance + +--------+ +--------+ +---------+--------+ | Payer | Benefi | Subscriber | Effect | Phone | Address | Type | | | t Plan | ID | anjum | | | | | | / | | Dates | | | | | | Group | | | | | | + +--------+ +--------+ +---------+--------+ | MEDICARE | MEDICA | [id number] | | [phone] | | Medica | | | RE | | 010-Pr | 5 | | re | | | PART A | | esent | | | | | | AND B | | | | | | + +--------+ +--------+ +---------+--------+ | [employer] | [employer] | [id number] | | [phone] | | Indemn | | | OF | | 010-Pr | 0 | | ity | | | [place] | | esent | | | | | | MDCR | | | | | | | | SUPPL | | | | | | + +--------+ +--------+ +---------+--------+ + +--------+ +--------+ + + | Guarantor Name | Accoun | Relation to | Date | Phone | Billing Address | | | t Type | Patient | of | | | | | | | | | | + +--------+ +--------+ + + | [place] | Person | Self | [birth year] | [address] | | | al/Fam | | 1945 | [phone] | [place] [address] | | | pattie | | | 0 (Home) | | + +--------+ +--------+ + + Advance Directives + + + + + | Type | Date Recorded | Patient | Explanation | | | | Supervisor Of Way | | + + + + + | Power of | | | | | V Belt Coverer | | | | + + + + + | Advance | 09/10/2015 | | | | Directive | 7:40 AM | | | + + + + + + + + + + | Code Status | Date | Date | Comments | | | Activated | Inactivated | | + + + + + | Full Code | 09/10/2015 | 09/10/2015 | | | | 11:34 AM | 3:00 PM | | + + + + +
--- OUTSIDE RECORDS SUMMARY | ~2019-10-03 | XMS | Encounter Summary ---
Demographics + + + | Address | [address] | | | [place] [address] | + + + | Home Phone | | + + + | Preferred Language | Unknown | + + + | Marital Status | | + + + | Sabianist Affiliation | Unknown | + + + | Race | Unknown | + + + | Ethnic Group | Unknown | + + + Author + + + | Author | [facility] | | | and [place]andro[place] | + + + | Organization | [facility] | | | and [...] [place], [place] | | | | | [address] | | + + + + + Care Team Providers + +------+ + | Care Recreation Therapy Aide Name | Role | Phone | + +------+ + PCP | Unavailable | + +------+ + Encounter Details +--------+ + + + + | Date | Type | Department | Care Team | Description | +--------+ + + + + | 05/11/ | Hospital | [facility] | | | | 1994 | Encounter | MED CTR XRAY [address] | | | | | | [address] | | | | | | [place] [address] | | | | | | [phone] | | | +--------+ + + + [...]
--- OUTSIDE RECORDS SUMMARY | ~2019-10-03 | XMS | Clinical Summary ---
Demographics + + + | Address | [address] | | | [place] [address] | + + + | Home Phone | | + + + | Preferred Language | Unknown | + + + | Marital Status | | + + + | Synagogue Affiliation | Unknown | + + + | Race | Unknown | + + + | Ethnic Group | Unknown | + + + Author + + + | Author | [facility] (Historical as of | | | 07-06-19) | + + + | Organization | [facility] (Historical as of | | | 07-06-19) | + + + | Address | Unknown | + + + | Phone | Unavailable | + + + Support + + + + + | Name | Relationship | Address | Phone | + + + + + | LizMadhuBharath | ECON | [address] | | | | | [place] | | | | | [address] | | + + + + + Care Team Providers + +------+ + | Care Light Bulb Replacer Name | Role | Phone | + +------+ + | Jennifer Alvarenga MD | PP | | + +------+ + Allergies + + + + + + | Active Allergy | Reactions | Severity | Noted | Comments | | | | | Date | | + + + + + + | Adhesive Tape | Other (See Comments) | Medium | 09/09/20 | Redness from tape | | | | | 15 | | + + + + + + | Lisinopril | Cough | Low | 07/25/20 | | | | | | 13 | | + + + + + + | Pregabalin | Swelling | Medium | 07/25/20 | | | | | | 13 | | + + + + + + | Naproxen | Rash | Medium | 07/25/20 | | | | | | 13 | | + + + + + + | Sulfamethoxazole-Tri | Anaphylaxis | High | 07/25/20 | | | methoprim | | | 13 | | + + + + + + | Sulfur | Anaphylaxis | High | 07/04/20 | | | | | | 11 | | + + + + + + | Rofecoxib | Rash | Medium | 07/25/20 | | | | | | 13 | | + + + + + + Current Medications + + +--------+---------+------+------+-------+ | Prescription | Sig. | Disp. | Refills | Star | End | Statu | | | | | | t | Date | s | | | | | | Date | | | + + +--------+---------+------+------+-------+ | fluoxetine | Take 10 mg by mouth | | | | | Activ | | (PROZAC) 10 MG | nightly. | | | | | e | | capsule | | | | | | | + + +--------+---------+------+------+-------+ | atenolol | Take 50 mg by mouth | | | | | Activ | | (TENORMIN) 50 MG | daily. | | | | | e | | tablet | | | | | | | + + +--------+---------+------+------+-------+ | tramadol (ULTRAM) | Take 50 mg by mouth | | | | | Activ | | 50 MG tablet | every 6 (six) hours | | | | | e | | | as needed. | | | | | | + + +--------+---------+------+------+-------+ | atorvastatin | Take 20 mg by mouth | | | | | Activ | | (LIPITOR) 20 MG | daily. | | | | | e | | tablet | | | | | | | + + +--------+---------+------+------+-------+ | furosemide (LASIX) | Take 40 mg by mouth | | | | | Activ | | 40 MG tablet | daily. | | | | | e | + + +--------+---------+------+------+-------+ | potassium chloride | Take 10 mEq by mouth | | | | | Activ | | (MICRO-K) 10 MEQ CR | 2 (two) times | | | | | e | | capsule | daily. | | | | | | + + +--------+---------+------+------+-------+ | pseudoephedrine | Take 60 mg by mouth | | | | | Activ | | (SUDOPHED) 30 MG | 2 (two) times daily | | | | | e | | tablet | as needed. | | | | | | + + +--------+---------+------+------+-------+ | Multiple | Take 1 tablet by | | | | | Activ | | Vitamins-Minerals | mouth daily. | | | | | e | | (MULTIVITAMIN WITH | | | | | | | | MINERALS) tablet | | | | | | | + + +--------+---------+------+------+-------+ | clopidogrel | Take 75 mg by mouth | | | | | Activ | | (PLAVIX) 75 MG | daily. | | | | | e | | tablet | | | | | | | + + +--------+---------+------+------+-------+ | OYSTER SHELL PO | Take 600 mg by mouth | | | | | Activ | | | 2 (two) times | | | | | e | | | daily. | | | | | | + + +--------+---------+------+------+-------+ | fexofenadine | Take 180 mg by mouth | | | | | Activ | | (RIKY) 180 MG | daily. | | | | | e | | tablet | | | | | | | + + +--------+---------+------+------+-------+ | | Take 1 tablet by | | | | | Activ | | acetaminophen-codein | mouth every 3 | | | | | e | | e (TYLENOL #3) | (three) hours as | | | | | | | 300-30 MG per tablet | needed. | | | | | | + + +--------+---------+------+------+-------+ | warfarin | Take 1 tablet by | 30 | 11 | 07/22 | | Activ | | (COUMADIN) 1 MG | mouth daily. | tablet | | 05/09 | | e | | tabletIndications: | | | | 11 | | | | PVD (peripheral | | | | | | | | vascular disease) | | | | | | | | (HCC) | | | | | | | + + +--------+---------+------+------+-------+ | olopatadine | Place 1 drop into | | | | | Activ | | (PATANOL) 0.1 % | both eyes as needed. | | | | | e | | ophthalmic solution | | | | | | | + + +--------+---------+------+------+-------+ | docusate sodium | Take 100 mg by mouth | | | | | Activ | | (COLACE) 100 MG | 2 (two) times daily | | | | | e | | capsule | as needed. | | | | | | + + +--------+---------+------+------+-------+ | triamcinolone | 2 sprays by Nasal | | | | | Activ | | (NASACORT AQ) 55 | route daily. | | | | | e | | MCG/ACT nasal | | | | | | | | inhaler | | | | | | | + + +--------+---------+------+------+-------+ | aspirin 325 MG | Take 325 mg by mouth | | | | | Activ | | buffered tablet | daily. | | | | | e | + + +--------+---------+------+------+-------+ | Cholecalciferol | Take 1,000 Units by | | | | | Activ | | (VITAMIN D-3) 1000 | mouth daily. | | | | | e | | UNITS CAPS | | | | | | | + + +--------+---------+------+------+-------+ | gabapentin | Take 100 mg by mouth | | | | | Activ | | (NEURONTIN) 100 MG | 3 (three) times | | | | | e | | capsule | daily. | | | | | | + + +--------+---------+------+------+-------+ | losartan (COZAAR) | Take 50 mg by mouth | | | | | Activ | | 50 MG tablet | daily. | | | | | e | + + +--------+---------+------+------+-------+ Active Problems Not on file Family History + + +------+ + | Medical History | Relation | Name | Comments | + + +------+ + | Coronary art dis | Father | | | + + +------+ + | Heart disease | Father | | | + + +------+ + | Alzheimer's disease | Mother | | | + + +------+ + | Coronary art dis | Mother | | | + + [...] +------+ + + Social History + +-------+ +--------+------+ | Tobacco Use | Types | Packs/Day | Years | Date | | | | | Used | | + +-------+ +--------+------+ | Former Smoker | | | 10 | | + +-------+ +--------+------+ + +---+---+---+ | Smokeless Tobacco: | | | | | Never Used | | | | + +---+---+---+ + + | Comments: quit 40 yrs ago | + + + + +---------+ + | Alcohol Use | Drinks/We | oz/Week | Comments | | | ek | | | + + +---------+ + | Yes | 1 | 0.6 | per month | | | Glasses | | | | | of wine | | | + + +---------+ + + + + | Sex Assigned at | Date Recorded | | | | + + + | Not on file | | + + + Last Filed Vital Signs + + + + | Vital Sign | Reading | Time Taken | + + + + | Blood Pressure | 166/83 | 08/09/2018 3:45 PM PDT | + + + + | Pulse | 61 | 08/09/2018 3:45 PM PDT | + + + + | Temperature | 36.9 C (98.4 F) | 07/25/2013 2:00 PM PDT | + + + + | Respiratory Rate | 16 | 07/25/2013 2:00 PM PDT | + + + + | Oxygen Saturation | 94% | 08/09/2018 3:45 PM PDT | + + + + | Inhaled Oxygen | - | - | | Concentration | | | + + + + | Weight | 81.6 kg (180 lb) | 07/25/2013 11:23 AM PDT | + + + + | Height | 160 cm (5' 3") | 07/25/2013 11:23 AM PDT | + + + + | Body Mass Index | 31.89 | 07/25/2013 11:23 AM PDT | + + + + Plan of Treatment [...] | | | | | Screening | 5 | | | | (Mammogram) | | | | + + + + + | Colon Cancer | | | | | Screening | 5 | | | | (Colonoscopy) | | | | + + + + + | Vaccine: Zoster (1 | | | | | of 2) | 5 | | | + + + + + | DEXA SCAN SCREENING | | | | | | 0 | | | + + + + + | Vaccine: | | | | | Pneumococcal 65+ | 0 | | | | Low/Medium Risk (1 | | | | | of 2 - PCV13) | | | | + + + + + | Vaccine: Influenza | | | | | (#1) | 9 | | | + + + + + Results Not on filefrom Last 3 Months Insurance + +--------+ +------+-------+ + | Payer | Benefi | Subscriber | Type | Phone | Address | | | t Plan | ID | | | | | | / | | | | | | | Group | | | | | + +--------+ +------+-------+ + | MEDICARE | MEDICA | [id number] | | | [address] | | | RE | | | | [place] [address] | | | IP-OP | | | | | + +--------+ +------+-------+ + | COMMERCIAL OTHER | COMMER | [id number] | | | | | | CIAL | | | | | | | GENERI | | | | | | | C PLAN | | | | | + +--------+ +------+-------+ + + +--------+ +--------+ + + | Guarantor Name | Accoun | Relation to | Date | Phone | Billing Address | | | t Type | Patient | of | | | | | | | | | | + +--------+ +--------+ + + | FLOR HENLEY | Person | Self [birth year] Home: | [address] | | | al/Fam | | 1945 | [phone] [place] | | | pattie | | | [phone] | [phone] | + +--------+ +--------+ + +
--- OUTSIDE RECORDS SUMMARY | ~2019-10-03 | XMS | Encounter Summary ---
Demographics + + + | Address | [address] | | | [place] [address] | + + + | Home Phone | | + + + | Preferred Language | Unknown | + + + | Marital Status | | + + + | Pentecostal Affiliation | Unknown | + + + | Race | Unknown | + + + | Ethnic Group | Unknown | + + + Author + + + | Author | [facility] | | | and Alejandroana | + + + | Organization | [facility] | | | and Alej[place]ana | [...] [place], [place] | | | | | [address] | | + + + + + Care Team Providers + +------+ + | Care Sql Server Architect Name | Role | Phone | + +------+ + | Alvaro Bonilla MD | PCP | | + +------+ + Encounter Details +--------+ + + + + | Date | Type | Department | Care Team | Description | +--------+ + + + + | 07/22/ | Hospital | [facility] | Conversion | Pain | | 2018 | Encounter | [address]VERSION [address] | Transaction, | | | | | [address] | Provider Unknown | | | | | [place], [place] | [phone] | | | | | [phone] | (Fax) | | | | | [phone] | | | +--------+ + + + [...] + + documented as of this encounter Medications at Time of Discharge [...] | | 0 | | | | (K-DUR,JULIANEOR-CON) 10 | 2 times [...] | + +--------+ + + + | CT ANGIOGRAM ABDOMEN | Routin | 06/18/2018 | | Results for this | | AORTA BILAT FEMORAL | e | 1:59 AM | | procedure are in the | | RUNOFF W CONTRAST | | PDT | | results section. | + +--------+ + + + documented in this encounter Results CT Angio Abd Aorta Bilat Jamie Leal (06/18/2018 1:59 AM PDT) + + | Specimen | + + | | + + + + + | Narrative | Performed At | + + + | This is a non-reportable procedure without a radiologist report and | | | is used for image storage only | | + + + + + | Procedure Note | + + | Jay Mata Karon - 07/03/2019 10:46 AM PDT This is a non-reportable procedure | | without a radiologist report and isused for image storage only | + + documented in this encounter Visit Diagnoses + + | Diagnosis | + + | Pain Generalized pain | + + documented in this encounter"
--- OUTSIDE RECORDS SUMMARY | ~2019-10-03 | XMS | Encounter Summary ---
Demographics + + + | Address | [address] | | | [place] [address] | + + + | Home Phone | | + + + | Preferred Language | Unknown | + + + | Marital Status | | + + + | Quaker Affiliation | Unknown | + + + | Race | Unknown | + + + | Ethnic Group | Unknown | + + + Author + + + | Author | [facility] | | | and Alejandroana | + + + | Organization | [facility] | | | and Alejandroana [...] [place], [place] | | | | | [address] | | + + + + + Care Team Providers + +------+ + | Care Chief I Dispatcher Name | Role | Phone | + +------+ + PCP | Unavailable | + +------+ + Encounter Details +--------+ + + + + | Date | Type | Department | Care Team | Description | +--------+ + + + + | 03/06/ | Hospital | [facility] | Ede Munguia, | Joint pain | | 1999 | Encounter | CONVERSION [address] | MD [address] | | | | | [address] | [place] | | | | | [place], [place] | [address] | | | | | [address] | | | | | | [phone] | | | +--------+ + + + [...] filedocumented as of this encounter Visit Diagnoses + + | Diagnosis | + + | Joint pain Pain in joint, site unspecified | + + documented in this encounter"
--- OUTSIDE RECORDS SUMMARY | ~2019-10-03 | XMS | Encounter Summary ---
Demographics + + + | Address | [address] | | | [place] [address] | + + + | Home Phone | | + + + | Preferred Language | Unknown | + + + | Marital Status | | + + + | Hindu Affiliation | Unknown | + + + | Race | Unknown | + + + | Ethnic Group | Unknown | + + + Author + + + | Author | [facility] | | | and Alejandroana | + + + | Organization | [facility] [...] [place], [place] | | | | | [address] | | + + + + + Care Team Providers + +------+ + | Care Transportation Superintendent Name | Role | Phone | + +------+ + PCP | Unavailable | + +------+ + Encounter Details +--------+ + + + + | Date | Type | Department | Care Team | Description | +--------+ + + + + | 05/11/ | Hospital | [facility] | | | | 1994 | Encounter | MED CTR XRAY [address] | | | | | | [address] | | | | | | [place] [address] | | | | | | [phone] | | | +--------+ + + + [...]
--- OUTSIDE RECORDS SUMMARY | ~2019-10-03 | XMS | Encounter Summary ---
Demographics + + + | Address | [address] | | | [place] [address] | + + + | Home Phone | | + + + | Preferred Language | Unknown | + + + | Marital Status | | + + + | Mu-Ism Affiliation | Unknown | + + + | Race | Unknown | + + + | Ethnic Group | Unknown | + + + Author + + + | Author | [facility] | | | and Alejandroana | + + + | Organization | [facility] | | | and Alejandroana [...] [place], [place] | | | | | [address] | | + + + + + Care Team Providers + +------+ + | Care Sheet Metal Insulator Name | Role | Phone | + +------+ + PCP | Unavailable | + +------+ + Encounter Details +--------+ + + + + | Date | Type | Department | Care Team | Description | +--------+ + + + + | 08/17/ | Hospital | [facility] | | | | 2000 | Encounter | [facility] | | | | | | [address] | | | | | | [place] | | | | | | [address] | | | | | | [phone] | | | +--------+ + + + [...]
--- OUTSIDE RECORDS SUMMARY | ~2019-10-03 | XMS | Encounter Summary ---
Demographics + + + | Address | [address] | | | [place] [address] | + + + | Home Phone | | + + + | Preferred Language | Unknown | + + + | Marital Status | | + + + | Confucianism Affiliation | Unknown | + + + | Race | Unknown | + + + | Ethnic Group | Unknown | + + + Author + + + | Author | [facility] | | | and Alejandroana | + + + | Organization | [facility] | | | and Alejandroana [...] [place], [place] | | | | | [address] | | + + + + + Care Team Providers + +------+ + | Care Extrusion Former Name | Role | Phone | + [...] | | | | (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 | [place] | [phone] | | [facility] | | [address] | | | - LABORATORY | | [...] - 1.030 | [facility] | | | [place] | | | [facility] | | [...] [address] | [place] | [phone] | | [facility] | | [address] | | | - LABORATORY | | [...] | | Count | | | [facility] | | [...] [address] | [place] | [phone] | | [facility] | | [address] | | | - LABORATORY | | | | + + + + + Surgical Pathology Exam (09/10/2015 12:00 AM PDT) + + | Specimen | + + | | + + + + + | Narrative | Performed At | + + + | SPECIMEN(S): A LEFT VULVAR EXCISION SPECIMEN SOURCE: A. LEFT | [facility] | | VULVAR EXCISION CLINICAL HISTORY: [...] section in three cassettes. | | | DDN:[facility] MICROSCOPIC EXAMINATION: Histologic sections of all | | | submitted blocks are examined by light microscopy. These findings, | | | together with the gross examination, support the pathologic diagnosis. | | | PERFORMING LABORATORY: Tissue processing and slide preparation | | | were performed by [facility], [address], | | | [place] [address] (Gameplay Engineer: Ascencion Juan M.D.; CLIA#: | | | [id number]). Professional interpretation was performed by [facility] | | | [facility], [address], [place] [address] | | | (Gameplay Engineer: Ascencion Juan M.D.; CLIA#: [id number]). | | | Diagnostician: Dread Schmitz MD [...]
--- OUTSIDE RECORDS SUMMARY | ~2019-10-03 | XMS | Encounter Summary ---
Demographics + + + | Address | [address] | | | [place] [address] | + + + | Home Phone | | + + + | Preferred Language | Unknown | + + + | Marital Status | | + + + | Samaritan Affiliation | Unknown | + + + | Race | Unknown | + + + | Ethnic Group | Unknown | + + + Author + + + | Author | [facility] | | | and Alejandroana | + + + | Organization | [facility] | | | and [place] | [...] [place], [place] | | | | | [address] | | + + + + + Care Team Providers + +------+ + | Care Grants And Contracts Assistant Name | Role | Phone | [...] | | | | (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 | | [place], [place]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 | | [address] | | | | | (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 | | [phone] | | | | | ial | | Fax: | | | | | neoplasia | | [phone] | | | | | II) | | | | | | | Procedures | | | | | | | Not Provided | | | +--------+--------+ + + + + Encounter Details +--------+ + + + + | Date | Type | Department | Care Team | Description | +--------+ + + + + | 09/10/ | Anesthesia | [facility] | Rajeev Reyes MD | | | 2014 | Event | MED [facility] OR INTRA OP | [address] | | | | | [address] | [place] | | | | | [place] | [phone] | | | | | [address] | | | | | | [phone] | | | +--------+ + + + + Anesthesia Record + + + + + | Procedure Name | Responsible | Anesthesia Start | Anesthesia Stop Time | | | Anesthesiologist | Time | | + + + + + | Wide Local Excision | Rajeev Reyes MD | 09/10/15 0932 | 09/10/15 1031 | | of Vulva (N/A Vulva) | | | | + + + + + +----+---+ + + | Da | T | Event | Comment | | te | i | | | | | m | | | | | e | | | +----+---+ + + | 10 | 0 | | | | /2 | 9 | | | | 2/ | 1 | | | | 20 | 7 | | | | 15 | | | | +----+---+ + + | | 0 | An Checkout | Pre-use anesthesia machine/equipment checkout. | | | 9 | | | | | 2 | | | | | 0 | | | +----+---+ + + | | 0 | An Start | Reassessment prior to anesthesia induction/procedure. | | | 9 | | | | | 3 | | | | | 2 | | | +----+---+ + + | | 0 | Antibiotic | | | | 9 | Given | | | | 3 | | | | | 2 | | | +----+---+ + + | | 0 | Preoxygenat | | | | 9 | ed | | | | 3 | | | | | 6 | | | +----+---+ + + | | 0 | An | | | | 9 | Induction | | | | 3 | | | | | 7 | | | +----+---+ + + | | 0 | An | | | | 9 | Intubation | | | | 3 | | | | | 8 | | | +----+---+ + + | | 0 | Westerlo | | | | 9 | 43-degrees | | | | 4 | | | | | 1 | | | +----+---+ + + | | 1 | Westerlo off | | | | 0 | | | | | 2 | | | | | 7 | | | +----+---+ + + | | 1 | Breathing | | | | 0 | Spontaneous | | | | 2 | ly | | | | 7 | | | +----+---+ + + | | 1 | an stop | | | | 0 | data | | | | 2 | | | | | 7 | | | +----+---+ + + | | 1 | An Stop | Patient handed off to recovery nurse. | | | 3 | | | | | 1 | | | +----+---+ + + +------+ | Meds | +------+ + +---------+ | Name | Total | + +---------+ | fentaNYL | 100 mcg | + +---------+ | propofol | 160 mg | + +---------+ | lidocaine 2% | 50 mg | + +---------+ | ceFAZolin in dextrose (ANCEF) | 2 g | | IVPB 2 g | | + +---------+ | ketamine | 25 mg | + +---------+ | midazolam | 2 mg | + +---------+ | dexamethasone | 5 mg | + +---------+ | ondansetron | 4 mg | + +---------+ | lactated ringers (LR) infusion | 600 mL | + +---------+ + + | Name | + + | N2O Flow Rate (L/Min) | + + | O2 Flow Rate (L/Min) | + + | Insp O2 | + + | Exp SEV | + + | Air Flow Rate (L/Min) | + + + + | No blood administrations on file. | + + +--------+ + + + | Type | Details | Placement | Removal | +--------+ + + + | [READ | 09/10/15; 851; Chemistry, | 09/10/15851 by | 09/10/15 1250 by | | ONLY] | Coagulation; 09/10/15; 1250 | Melinda Bell, | Lori Bauer RN | | | | MARLENI | | | Periph | | | | | eral | | | | | IV - | | | | | Single | | | | | Lumen | | | | | | | | | +--------+ + + + | Airway | Placement Date: 09/10/15; | 09/10/15937 by | 09/10/151051 by | | | Placement Time: 937; Mask | Rajeev Reyes MD | Lety Wilson RN | | | Ventilation: EZ; Airway Grade: I; | | | | | Attempts: 1; Airway Type: | | | | | laryngeal mask, cuffed, | | | | | non-disposable; Size: 3; Trauma: | | | | | none; Placement Check: verified | | | | | by capnography; Placed By: | | | | | Anesthesiologist; Removal Date: | | | | | 09/10/15; Removal Time: 1052 | | | +--------+ + + + | Read | 09/10/15; 1003; Bilateral:; | 09/10/15 1003 by | 02/12/19 1342 by | | only - | perineum; 02/12/19 | Donya Flores, | User Epic | | | (Completed/Removed by Utility); | RN | | | Incisi | 1342 (Completed/Removed by | | | | on | Utility) | | | +--------+ + + + documented in this encounter Social History + +-------+ +--------+ + | [...] Visit Diagnoses Not on filedocumented in this encounter Administered Medications + +--------+ +------+------+------+ | Medication Order | MAR | Action | Dose | Rate | Site | | | Action | Date | | | | + +--------+ +------+------+------+ | ceFAZolin in dextrose (ANCEF) | Given | 09/10/20 | 2 g | | | | IVPB 2 g 2 g, Intravenous, | | 15 9:32 | | | | | Administer over 30 Minutes, Prior | | AM PDT | | | | | to Incision, Starting Rachael | | | | | | | 09/10/15 at 0822, For 1 dose, | | | | | | | Give within one hour prior to | | | | | | | surgical incision., Pre-op | | | | | | + +--------+ +------+------+------+ +---+---+ | | | +---+---+ + +-------+ +------+---+---+ | dexamethasone (DECADRON) 10 | Given | 09/10/20 | 5 mg | | | | mg/mL injection Intravenous, | | 15 9:52 | | | | | PRN, Starting Rachael 09/10/15 at | | AM PDT | | | | | 0952, Anesthesia Intra-op | | | | | | + +-------+ +------+---+---+ +---+---+ | | | +---+---+ + +-------+ +--------+---+---+ | fentaNYL injection | Given | 09/10/20 | 25 mcg | | | | Intravenous, PRN, Pain, Starting | | 15 10:13 | | | | | Rachael 09/10/15 at 0935, Anesthesia | | AM PDT | | | | | Intra-op | | | | | | + +-------+ +--------+---+---+ +-------+ +--------+---+---+ | Given | 09/10/20 | 25 mcg | | | | | 15 9:57 | | | | | | AM PDT | | | | +-------+ +--------+---+---+ | Given | 09/10/20 | 50 mcg | | | | | 15 9:35 | | | | | | AM PDT | | | | +-------+ +--------+---+---+ +---+---+ | | | +---+---+ + +-------+ +-------+---+---+ | ketamine 50 mg/mL injection | Given | 09/10/20 | 25 mg | | | | PRN, Starting Rachael 09/10/15 at | | 15 9:37 | | | | | 0937, Anesthesia Intra-op | | AM PDT | | | | + +-------+ +-------+---+---+ +---+---+ | | | +---+---+ + +-------+ +-------+---+---+ | lidocaine (PF) 2% injection | Given | 09/10/20 | 50 mg | | | | Intravenous, PRN, Starting Rachael | | 15 9:37 | | | | | 09/10/15 at 0937, Anesthesia | | AM PDT | | | | | Intra-op | | | | | | + +-------+ +-------+---+---+ +---+---+ | | | +---+---+ + +-------+ +------+---+---+ | midazolam (VERSED) 1 mg/mL | Given | 09/10/20 | 2 mg | | | | injection Intravenous, PRN, | | 15 9:35 | | | | | Anxiety, Starting Rachael 09/10/15 at | | AM PDT | | | | | 0935, Anesthesia Intra-op | | | | | | + +-------+ +------+---+---+ +---+---+ | | | +---+---+ + +-------+ +------+---+---+ | ondansetron (ZOFRAN) injection | Given | 09/10/20 | 4 mg | | | | Intravenous, PRN, Nausea, | | 15 9:52 | | | | | Vomiting, Starting Rachael 09/10/15 | | AM PDT | | | | | at 0952, Anesthesia Intra-op | | | | | | + +-------+ +------+---+---+ +---+---+ | | | +---+---+ + +-------+ +-------+---+---+ | propofol (DIPRIVAN) injection | Given | 09/10/20 | 80 mg | | | | Intravenous, PRN, Starting Rachael | | 15 10:03 | | | | | 09/10/15 at 0937, Anesthesia | | AM PDT | | | | | Intra-op | | | | | | + +-------+ +-------+---+---+ +-------+ +-------+---+---+ | Given | 09/10/20 | 80 mg | | | | | 15 9:37 | | | | | | AM PDT | | | | +-------+ +-------+---+---+ +---+---+ | | | +---+---+ documented in this encounter"
--- OUTSIDE RECORDS SUMMARY | ~2019-10-03 | XMS | Encounter Summary ---
Demographics + + + | Address | [address] | | | [place] [address] | + + + | Home Phone | | + + + | Preferred Language | Unknown | + + + | Marital Status | | + + + | Christian Affiliation | Unknown | + + + | Race | Unknown | + + + | Ethnic Group | Unknown | + + + Author + + + | Author | [facility] | | | and Alejandroana | + + + | Organization | [facility] | | | and Alejandroana [...] [place], [place] | | | | | [address] | | + + + + + Care Team Providers + +------+ + | Care Manager Garage Name | Role | Phone | + +------+ + PCP | Unavailable | + +------+ + Encounter Details +--------+ + + + + | Date | Type | Department | Care Team | Description | +--------+ + + + + | 10/22/ | Hospital | [facility] | | | | 2009 | Encounter | MED CTR LAB[facility]ATORY | | | | | | [address] | | | | | | [place] | | | | | | [address] | | | | | | [phone] | | | +--------+ + + + [...]
--- OUTSIDE RECORDS SUMMARY | ~2019-10-03 | XMS | Encounter Summary ---
Demographics + + + | Address | [address] | | | [place] [address] | + + + | Home Phone | | + + + | Preferred Language | Unknown | + + + | Marital Status | | + + + | Judaism Affiliation | Unknown | + + + | Race | Unknown | + + + | Ethnic Group | Unknown | + + + Author + + + | Author | [facility] | | | and Alejandroana | + + + | Organization | [facility] | | | and Alejandroana [...] [place], [place] | | | | | [address] | | + + + + + Care Team Providers + +------+ + | Care Waiter/Waitress Tavern Name | Role | Phone | + +------+ + PCP | Unavailable | + +------+ + Encounter Details +--------+ + + + + | Date | Type | Department | Care Team | Description | +--------+ + + + + | 08/21/ | [facility] | [facility] | | | | 2000 | Encounter | MED CTR MP INTRA OP | | | | | | [address] | | | | | | [place] | | | | | | [address] | | | | | | [phone] | | | +--------+ + + + [...]
--- OUTSIDE RECORDS SUMMARY | ~2019-10-03 | XMS | Encounter Summary ---
Demographics + + + | Address | [address] | | | [place] [address] | + + + | Home Phone | | + + + | Preferred Language | Unknown | + + + | Marital Status | | + + + | Mormonism Affiliation | Unknown | + + + | Race | Unknown | + + + | Ethnic Group | Unknown | + + + Author + + + | Author | [facility] | | | and Alejandroana | + + + | Organization | [facility] | | | and Alejandroana | + + + | Address | Unknown | + + + | Phone | Unavailable | + + + Support + + + + + | Name | Relationship | Address | Phone | + + + + + | Bharath Hill | ECON | [address] | | | | | [place], [place] | | | | | [address] | | + + + + + Care Team Providers + +------+ + | Care Director Of Construction Name | Role | Phone | + +------+ + PCP | Unavailable | + +------+ + Encounter Details +--------+ + + + + | Date | Type | Department | Care Team | Description | +--------+ + + + + | 07/25/ | Hospital | [facility] | Conversion | PAD (peripheral | | 2012 | Encounter | [facility]ICAL [facility]ENTER | Transaction, | artery disease) | | | | CLINICAL DECISION | Provider Unknown | (HCC) | | | | [address] [facility] | [phone] | | | | | [place], [place] | | | | | | [address] | Phillip Pacheco MD | | | | | [phone] | [address] | | | | | | [place] [address] | | | | | | [phone] | | | | | | | [...] + + documented as of this encounter Progress Notes Karon Sierraaction, Provider Unknown - 07/25/2013 7:58 PM PDTFormatting of this note m ight be different from the original. Progress Notes by David Pratt RN at 07/25/131957 Author: David Pratt RN Service: (none) Author Type: Registered Nurse Filed: 07/25/131958 Date of Service: 07/25/131957 Status: Signed Pleating Supervisor: David Pratt RN (Registered Nurse) IV dc'd, DC instructions given to patient, has met criteria to dc home. Friend is driving p atient home to [employer] docume nted in this encounter Plan of Treatment Not on filedocumented as of this encounter Procedures + +--------+ + + + | Procedure Name | Priori | Date/Time | Associated Diagnosis | Comments | | | ty | | | | + +--------+ + + + | CV VASCULAR | Routin | 07/25/2013 | | Results for this | | PROCEDURE | e | 1:50 PM | | procedure are in the | | | | PDT | | results section. | + +--------+ + + + | CV VASCULAR | Routin | 07/25/2013 | | Results for this | | PROCEDURE | e | 1:50 PM | | procedure are in the | | | | PDT | | results section. | + +--------+ + + + documented in this encounter Results CV VASCULAR PROCEDURE (07/25/2013 1:50 PM PDT) + + | Specimen | + + | | + + + + + | Narrative | Performed At | + + + | | | | | | | PROCEDURE Abdominal aortogram with bilateral runoff. INDICATIONS | | | Ms. Hill is a 67-year-old lady with known history of peripheral | | | vascular obstructive disease status post previous endarterectomy for | | | the right popliteal artery who started to complain of pain in right | | | lower extremity and right foot, and referred by Dr. Gauthier for | | | evaluation of her peripheral circulation. DESCRIPTION OF | | | PROCEDURE The procedure, details, alternatives, and complications | | | explained for the patient. Informed consent was obtained. The patient | | | was brought to the room and prepped in sterile fashion. A timeout | | | was performed. Conscious sedation administered by independent | | | observer. The left groin anesthetized with 1% lidocaine. Under | | | fluoroscopic guidance the left common femoral artery was cannulized | | | with a 4-Taiwanese sheath. The right lower extremity runoff was | | | performed. Then a 4-Taiwanese Omni flush catheter was placed in the | | | descending aorta. An abdominal aortogram was performed. Then I used a | | | 4-Taiwanese IM catheter to cross to the right femoral artery. The right | | | lower extremity runoff was performed. Then the IM catheter was | | | removed. The sheath was removed. Manual pressure was held for 15 | | | minutes with good hemostasis. The patient was transferred to the | | | recovery area in stable condition. FINDINGS 1. Abdominal | | | aortogram showed no aneurysms or stenosis. 2. Bilateral lower | | | extremity runoff showed no significant stenosis with 3-vessel runoff | | | bilateral. 3. Good patency of the artery at the site of the | | | endarterectomy. CONTRAST 45 mL. COMPLICATIONS None. | | | ESTIMATED BLOOD LOSS Minimal. CONCLUSIONS No significant | | | peripheral vascular obstructive disease. RECOMMENDATIONS Medical | | | management. Read by PHILLIP PACHECO MD 07/25/2013 01:47 P | | | | | + + + + + | Procedure Note | + + | Jay Mata Conversion - 07/12/2019 9:42 PM PDT | | | | PROCEDURE | | Abdominal aortogram with bilateral runoff. | | | | INDICATIONS | | Ms. Hill is a 67-year-old lady with known history of peripheral vascular | | obstructive disease status post previous endarterectomy for the right | | popliteal artery who started to complain of pain in right lower extremity | | and right foot, and referred by Dr. Gauthier for evaluation of her | | peripheral circulation. | | | | DESCRIPTION OF PROCEDURE | | The procedure, details, alternatives, and complications explained for the | | patient. Informed consent was obtained. The patient was brought to the | | room and prepped in sterile fashion. A timeout was performed. Conscious | | sedation administered by independent observer. The left groin anesthetized | | with 1% lidocaine. Under fluoroscopic guidance the left common femoral | | artery was cannulized with a 4-Taiwanese sheath. The right lower extremity | | runoff was performed. Then a 4-Taiwanese Omni flush catheter was placed in | | the descending aorta. An abdominal aortogram was performed. Then I used a | | 4-Taiwanese IM catheter to cross to the right femoral artery. The right lower | | extremity runoff was performed. Then the IM catheter was removed. The | | sheath was removed. Manual pressure was held for 15 minutes with good | | hemostasis. The patient was transferred to the recovery area in stable | | condition. | | | | FINDINGS | | 1. Abdominal aortogram showed no aneurysms or stenosis. | | 2. Bilateral lower extremity runoff showed no significant stenosis with | | 3-vessel runoff bilateral. | | 3. Good patency of the artery at the site of the endarterectomy. | | | | CONTRAST | | 45 mL. | | | | COMPLICATIONS | | None. | | | | ESTIMATED BLOOD LOSS | | Minimal. | | | | CONCLUSIONS | | No significant peripheral vascular obstructive disease. | | | | RECOMMENDATIONS | | Medical management. | | | | Read by PHILLIP PACHECO MD 07/25/2013 01:47 P | | | | | + + CV VASCULAR PROCEDURE (07/25/2013 1:50 PM PDT) + + | Specimen | + + | | + + + + + | Narrative | Performed At | + + + | | | | | | | PROCEDURE Abdominal aortogram with bilateral runoff. INDICATIONS | | | Ms. Hill is a 67-year-old lady with known history of peripheral | | | vascular obstructive disease status post previous endarterectomy for | | | the right popliteal artery who started to complain of pain in right | | | lower extremity and right foot, and referred by Dr. Gauthier for | | | evaluation of her peripheral circulation. DESCRIPTION OF | | | PROCEDURE The procedure, details, alternatives, and complications | | | explained for the patient. Informed consent was obtained. The patient | | | was brought to the room and prepped in sterile fashion. A timeout | | | was performed. Conscious sedation administered by independent | | | observer. The left groin anesthetized with 1% lidocaine. Under | | | fluoroscopic guidance the left common femoral artery was cannulized | | | with a 4-Taiwanese sheath. The right lower extremity runoff was | | | performed. Then a 4-Taiwanese Omni flush catheter was placed in the | | | descending aorta. An abdominal aortogram was performed. Then I used a | | | 4-Taiwanese IM catheter to cross to the right femoral artery. The right | | | lower extremity runoff was performed. Then the IM catheter was | | | removed. The sheath was removed. Manual pressure was held for 15 | | | minutes with good hemostasis. The patient was transferred to the | | | recovery area in stable condition. FINDINGS 1. Abdominal | | | aortogram showed no aneurysms or stenosis. 2. Bilateral lower | | | extremity runoff showed no significant stenosis with 3-vessel runoff | | | bilateral. 3. Good patency of the artery at the site of the | | | endarterectomy. CONTRAST 45 mL. COMPLICATIONS None. | | | ESTIMATED BLOOD LOSS Minimal. CONCLUSIONS No significant | | | peripheral vascular obstructive disease. RECOMMENDATIONS Medical | | | management. Read by PHILLIP PACHECO MD 07/25/2013 01:47 P | | | | | + + + + + | Procedure Note | + + | Jay Mata - 07/12/2019 9:42 PM PDT | | | | PROCEDURE | | Abdominal aortogram with bilateral runoff. | | | | INDICATIONS | | Ms. Hill is a 67-year-old lady with known history of peripheral vascular | | obstructive disease status post previous endarterectomy for the right | | popliteal artery who started to complain of pain in right lower extremity | | and right foot, and referred by Dr. Gauthier for evaluation of her | | peripheral circulation. | | | | DESCRIPTION OF PROCEDURE | | The procedure, details, alternatives, and complications explained for the | | patient. Informed consent was obtained. The patient was brought to the | | room and prepped in sterile fashion. A timeout was performed. Conscious | | sedation administered by independent observer. The left groin anesthetized | | with 1% lidocaine. Under fluoroscopic guidance the left common femoral | | artery was cannulized with a 4-Taiwanese sheath. The right lower extremity | | runoff was performed. Then a 4-Taiwanese Omni flush catheter was placed in | | the descending aorta. An abdominal aortogram was performed. Then I used a | | 4-Taiwanese IM catheter to cross to the right femoral artery. The right lower | | extremity runoff was performed. Then the IM catheter was removed. The | | sheath was removed. Manual pressure was held for 15 minutes with good | | hemostasis. The patient was transferred to the recovery area in stable | | condition. | | | | FINDINGS | | 1. Abdominal aortogram showed no aneurysms or stenosis. | | 2. Bilateral lower extremity runoff showed no significant stenosis with | | 3-vessel runoff bilateral. | | 3. Good patency of the artery at the site of the endarterectomy. | | | | CONTRAST | | 45 mL. | | | | COMPLICATIONS | | None. | | | | ESTIMATED BLOOD LOSS | | Minimal. | | | | CONCLUSIONS | | No significant peripheral vascular obstructive disease. | | | | RECOMMENDATIONS | | Medical management. | | | | Read by PHILLIP PACHECO MD 07/25/2013 01:47 P | | | | | + + documented in this encounter Visit Diagnoses + + | Diagnosis | + + | PAD (peripheral artery disease) (HCC) Unspecified disorders of arteries and | | arterioles | + + documented in this encounter"
--- OUTSIDE RECORDS SUMMARY | ~2019-10-03 | XMS | Encounter Summary ---
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
--- OUTSIDE RECORDS SUMMARY | ~2019-10-03 | XMS | Encounter Summary ---
Demographics + + + | Address | [address] | | | [place] [address] | + + + | Home Phone | | + + + | Preferred Language | Unknown | + + + | Marital Status | | + + + | Christianity Affiliation | Unknown | + + + | Race | Unknown | + + + | Ethnic Group | Unknown | + + + Author + + + | Author | [facility] | | | and Alejandroana | + + + | Organization | [facility] | | | and Alejandroana | + + + | Address | Unknown | + + + | Phone | Unavailable | + + + Support + + + + + | Name | Relationship | Address | Phone | + + + + + | Bharath Henley | ECON | [address] | | | | | [place], [place] | | | | | [address] | | + + + + + Care Team Providers + +------+ + | Care Food Server Name | Role | Phone | + +------+ + | Alvaro Bonilla MD | PCP | | + +------+ + Encounter Details +--------+ + + + + | Date | Type | Department | Care Team | Description | +--------+ + + + + | 08/09/ | Orders Only | [facility] | Dilan Leung MD | | | 2017 | | VASCULAR SURGERY | [address] | | | | | [address] | [place], [place] | | | | | [place] | [address] | | | | | [place] | [phone] | | | | | [address] | | | | | | [phone] | | | +--------+ + + + [...] | + +--------+ + + + | VAS ANKLE BRACHIAL | Routin | 08/09/2018 | | Results for this | | INDEX RESTING | e | 4:45 PM | | procedure are in the | | | | PDT | | results section. | + +--------+ + + + documented in this encounter Results VAS Ankle Brachial Index Resting (08/09/2018 4:45 PM PDT) + + | Specimen | + + | | + + + + + | Impressions | Performed At | + + + | 1. Mildly decreased right ankle brachial index. 2. Moderately | | | decreased right toe brachial index. 3. Left ankle brachial index | | | and toe brachial index is within normal limits. Electronically | | | signed by Asuncion Gonzalez on 08/09/2018 5:14 PM | | + + + + + + | Narrative | Performed At | + + + | [facility] KIKI RESTING 08/09/2018 4:45 PM HISTORY: | | | Peripheral arterial disease. COMPARISON: CTA dated 06/18/2018. | | | TECHNIQUE: Bilateral lower extremity arterial Doppler examination | | | performed with color Doppler and spectral Doppler waveform analysis. | | | Resting ankle-brachial indices and toe-brachial indices were | | | calculated. FINDINGS: Ankle-brachial indices: RIGHT: | | | Brachial pressure: 135 mmHg. Posterior tibial pressure: 121 mmHg. | | | Posterior tibial KIKI: 0.82. Dorsalis pedis pressure: 116 mmHg. | | | Dorsalis pedis KIKI: 0.79. Toe pressure: 74 mmHg. TBI: 0.5. LEFT | | | Brachial pressure: 147 mmHg. Posterior tibial pressure: 157 mmHg. | | | Posterior tibial KIKI: 1.07. Dorsalis pedis pressure: 144 mmHg. | | | Dorsalis pedis KIKI: 0.98. Toe pressure: 124 mmHg. TBI: 0.84. | | | Interpretation of KIKI: >1.30 Noncompressible 0.91 -- | | | 1.30 Normal 0.41 -- 0.90 Mild to moderate peripheral arterial | | | disease 0.00 -- 0.40 Severe peripheral arterial RIGHT LEG | | | WAVEFORMS: Posterior tibial artery: Triphasic. Dorsalis pedis | | | artery: Triphasic. LEFT LEG WAVEFORMS: Posterior tibial artery: | | | Triphasic. Dorsalis pedis artery: Triphasic. Normal pulse | | | volumetric waveforms of the great toes. | | + + + + + | Procedure Note | + + | Jay Mata Conversion - 07/11/2019 4:40 PM PDT [facility] KIKI RESTING08/09/2018 | | 4:45 PM HISTORY: Peripheral arterial disease. COMPARISON: CTA dated 06/18/2018. | | TECHNIQUE: Bilateral lower extremity arterial Doppler examination performed with color | | Doppler and spectral Doppler waveform analysis. Resting ankle-brachial indices and | | toe-brachial indices were calculated. FINDINGS: Ankle-brachial indices:RIGHT:Brachial | | pressure: 135 mmHg.Posterior tibial pressure: 121 mmHg.Posterior tibial KIKI: | | 0.82.Dorsalis pedis pressure: 116 mmHg.Dorsalis pedis KIKI: 0.79.Toe pressure: 74 | | mmHg.TBI: 0.5. LEFTBrachial pressure: 147 mmHg.Posterior tibial pressure: 157 | | mmHg.Posterior tibial KIKI: 1.07.Dorsalis pedis pressure: 144 mmHg.Dorsalis pedis KIKI: | | 0.98.Toe pressure: 124 mmHg.TBI: 0.84. Interpretation of KIKI:>1.30 | | Noncompressible0.91 -- 1.30 Normal0.41 -- 0.90 Mild to moderate peripheral arterial | | disease0.00 -- 0.40 Severe peripheral arterial RIGHT LEG WAVEFORMS:Posterior tibial | | artery: Triphasic.Dorsalis pedis artery: Triphasic. LEFT LEG WAVEFORMS:Posterior tibial | | artery: Triphasic.Dorsalis pedis artery: Triphasic. Normal pulse volumetric waveforms of | | the great toes. IMPRESSION: 1. Mildly decreased right ankle brachial index.2. | | Moderately decreased right toe brachial index.3. Left ankle brachial index and toe | | brachial index is within normal limits. Electronically signed by Asuncion Gonzalez on | | 08/09/2018 5:14 PM | |Dorsalis pedis KIKI: 0.79. | |Toe pressure: 74 mmHg. | |TBI: 0.5. | | | |LEFT | |Brachial pressure: 147 mmHg. | |Posterior tibial pressure: 157 mmHg. | |Posterior tibial KIKI: 1.07. | |Dorsalis pedis pressure: 144 mmHg. | |Dorsalis pedis KIKI: 0.98. | |Toe pressure: 124 mmHg. | |TBI: 0.84. | | | | | |Interpretation of KIKI: | |>1.30 Noncompressible | |0.91 -- 1.30 Normal | |0.41 -- 0.90 Mild to moderate peripheral arterial disease | |0.00 -- 0.40 Severe peripheral arterial | | | |RIGHT LEG WAVEFORMS: | |Posterior tibial artery: Triphasic. | |Dorsalis pedis artery: Triphasic. | | | |LEFT LEG WAVEFORMS: | |Posterior tibial artery: Triphasic. | |Dorsalis pedis artery: Triphasic. | | | |Normal pulse volumetric waveforms of the great toes. | | | |IMPRESSION: | |1. Mildly decreased right ankle brachial index. | |2. Moderately decreased right toe brachial index. | |3. Left ankle brachial index and toe brachial index is within normal limits. | | | | | + + documented in this encounter Visit Diagnoses Not on filedocumented in this encounter"
--- OUTSIDE RECORDS SUMMARY | ~2019-10-03 | XMS | Encounter Summary ---
Demographics + + + | Address | [address] | | | [place] [address] | + + + | Home Phone | | + + + | Preferred Language | Unknown | + + + | Marital Status | | + + + | Scientology Affiliation | Unknown | + + + | Race | Unknown | + + + | Ethnic Group | Unknown | + + + Author + + + | Author | [facility] | | | and Alejandroana | + + + | Organization | [facility] | | | and Alejandroana [...] [place], [place] | | | | | [address] | | + + + + + Care Team Providers + +------+ + | Care Ferryboat Operator Cable Name | Role | Phone | + +------+ + PCP | Unavailable | + +------+ + Encounter Details +--------+ + + + + | Date | Type | Department | Care Team | Description | +--------+ + + + + | 10/12/ | Hospital | [facility] | | | | 2008 | Encounter | MED CTR XRAY [address] | | | | | | [place] | | | | | | [place] [address] | | | | | | [phone] | | | +--------+ + + + [...]
--- OUTSIDE RECORDS SUMMARY | ~2019-10-03 | XMS | Encounter Summary ---
Demographics + + + | Address | [address] | | | [place] [address] | + + + | Home Phone | | + + + | Preferred Language | Unknown | + + + | Marital Status | | + + + | Anglican Affiliation | Unknown | + + + | Race | Unknown | + + + | Ethnic Group | Unknown | + + + Author + + + | Author | [facility] | | | and Alejandroana | + + + | Organization | [facility] | | | and Alejandroana [...] [place], [place] | | | | | [address] | | + + + + + Care Team Providers + +------+ + | Care Gutter Mouth Cutter Name | Role | Phone | + +------+ + | Alvaro Bonilla MD | PCP | | + +------+ + Encounter Details +--------+ + + + + | Date | Type | Department | Care Team | Description | +--------+ + + + + | 06/17/ | Orders Only | [facility] | Provider, | | | 2018 | | SYSTEM GENERIC OP | [address] | | | | | [address] | [address] [address]. | | | | | [address] [place], [place] | [place] [address] | | | | | [address] | | | | | | [phone] | | | +--------+ + + + [...]
--- OUTSIDE RECORDS SUMMARY | ~2019-10-03 | XMS | Encounter Summary ---
Demographics + + + | Address | [address] | | | [place] [address] | + + + | Home Phone | | + + + | Preferred Language | Unknown | + + + | Marital Status | | + + + | Yazidism Affiliation | Unknown | + + + | Race | Unknown | + + + | Ethnic Group | Unknown | + + + Author + + + | Author | [facility] | | | and Alejandroana | + + + | Organization | [facility] | | | and Alejandroana [...] [place], [place] | | | | | [address] | | + + + + + Care Team Providers + +------+ + | Care Nurse Discharge Planner Name | Role | Phone | + +------+ + PCP | Unavailable | + +------+ + Encounter Details +--------+ + + + + | Date | Type | Department | Care Team | Description | +--------+ + + + + | 07/25/ | Hospital | [facility] | Conversion | PAD (peripheral | | 2012 | Encounter | MEDICAL CENTER | Transaction, | artery disease) | | | | CLINICAL DECISION | Provider Unknown | (HCC) | | | | [address] [facility] | [phone] | | | | | [place], [place] | | | | | | [address] | Phillip Pacheco MD | | | | | [phone] | [address] | | | | | | [place] [address] | | | | | | [phone] | | | | | | | [...] 07/25/131958 Date of Service: 07/25/131957 Status: Signed Electrical Sign Servicer: David Pratt RN (Registered Nurse) IV dc'd, DC instructions given to patient, has met criteria to dc home. Friend is driving p atient home to [employer] [employer] docume nted in this encounter Plan of [...] was cannulized | | | with a 4-Indian sheath. The right lower extremity runoff was | | | performed. Then a 4-Indian Omni flush catheter was placed in the | | | descending aorta. An abdominal aortogram was performed. Then I used a | | | 4-Indian IM catheter to cross to the right [...] | | artery was cannulized with a 4-Indian sheath. The right lower extremity | | runoff was performed. Then a 4-Indian Omni flush catheter was placed in | | the descending aorta. An abdominal aortogram was performed. Then I used a | | 4-Indian IM catheter to cross to the right [...] was cannulized | | | with a 4-Indian sheath. The right lower extremity runoff was | | | performed. Then a 4-Indian Omni flush catheter was placed in the | | | descending aorta. An abdominal aortogram was performed. Then I used a | | | 4-Indian IM catheter to cross to the right [...] | | artery was cannulized with a 4-Indian sheath. The right lower extremity | | runoff was performed. Then a 4-Indian Omni flush catheter was placed in | | the descending aorta. An abdominal aortogram was performed. Then I used a | | 4-Indian IM catheter to cross to the right [...]
--- OUTSIDE RECORDS SUMMARY | ~2019-10-03 | XMS | Encounter Summary ---
Demographics + + + | Address | [address] | | | [place] [address] | + + + | Home Phone | | + + + | Preferred Language | Unknown | + + + | Marital Status | | + + + | Mormon Affiliation | Unknown | + + + | Race | Unknown | + + + | Ethnic Group | Unknown | + + + Author + + + | Author | [facility] | | | and Alejandroana | + + + | Organization | [facility] | | | and [...] [place], [place] | | | | | [address] | | + + + + + Care Team Providers + +------+ + | Care Engineering Leader Name | Role | Phone | + +------+ + PCP | Unavailable | + +------+ + Encounter Details +--------+ + + + + | Date | Type | Department | Care Team | Description | +--------+ + + + + | 08/21/ | [facility] | [facility] | | | | 2000 | Encounter | MED CTR MP INTRA OP | | | | | | [address] | | | | | | [place] | | | | | | [address] | | | | | | [phone] | | | +--------+ + + + [...]
--- OUTSIDE RECORDS SUMMARY | ~2019-10-03 | XMS | Encounter Summary ---
Demographics + + + | Address | [address] | | | [place] [address] | + + + | Home Phone | | + + + | Preferred Language | Unknown | + + + | Marital Status | | + + + | Pentecostal Affiliation | Unknown | + + + | Race | Unknown | + + + | Ethnic Group | Unknown | + + + Author + + + | Author | [facility] | | | and Alejandroana | + + + | Organization | [facility] | | | and [...] [place], [place] | | | | | [address] | | + + + + + Care Team Providers + +------+ + | Care Donation Specialist Name | Role | Phone | + +------+ + PCP | Unavailable | + +------+ + Encounter Details +--------+ + + + + | Date | Type | Department | Care Team | Description | +--------+ + + + + | 01/28/ | Hospital | [facility] | | | | 1993 | Encounter | MED CTR XRAY [address] | | | | | | [address] | | | | | | [place] [address] | | | | | | [phone] | | | +--------+ + + + [...]
--- OUTSIDE RECORDS SUMMARY | ~2019-10-03 | XMS | Encounter Summary ---
Demographics + + + | Address | [address] | | | [place] [address] | + + + | Home Phone | | + + + | Preferred Language | Unknown | + + + | Marital Status | | + + + | Yarsani Affiliation | Unknown | + + + | Race | Unknown | + + + | Ethnic Group | Unknown | + + + Author + + + | Author | [facility] | | | and Alejandroana | + + + | Organization | [facility] | | | and Alejandroana | [...] [place], [place] | | | | | [address] | | + + + + + Care Team Providers + +------+ + | Care Ruling Technician Name | Role | Phone | + +------+ + PCP | Unavailable | + +------+ + Encounter Details +--------+ + + + + | Date | Type | Department | Care Team | Description | +--------+ + + + + | 01/30/ | Hospital | [facility] | | | | 1996 | Encounter | MED CTR XRAY [address] | | | | | | [address] | | | | | | [place] [address] | | | | | | [phone] | | | +--------+ + + + [...]
--- OUTSIDE RECORDS SUMMARY | ~2019-10-03 | XMS | Encounter Summary ---
Demographics + + + | Address | [address] | | | [place] [address] | + + + | Home Phone | | + + + | Preferred Language | Unknown | + + + | Marital Status | | + + + | Mosque Affiliation | Unknown | + + + | Race | Unknown | + + + | Ethnic Group | Unknown | + + + Author + + + | Author | [facility] | | | and Alejandroana | + + + | Organization | [facility] | | | and [...] [place], [place] | | | | | [address] | | + + + + + Care Team Providers + +------+ + | Care Mailing Machine Operator Name | Role | Phone | [...] [place] | | | | | [place], [place] | [address] | | | | | [address] | | | | | | [phone] | | | +--------+ + + + [...]
--- OUTSIDE RECORDS SUMMARY | ~2019-10-03 | XMS | Encounter Summary ---
Demographics + + + | Address | [address] | | | [place] [address] | + + + | Home Phone | | + + + | Preferred Language | Unknown | + + + | Marital Status | | + + + | Nondenominational Affiliation | Unknown | + + + | Race | Unknown | + + + | Ethnic Group | Unknown | + + + Author + + + | Author | [facility] | | | and Alejandroana | + + + | Organization | [facility] | | | and Alejandroana [...] [place], [place] | | | | | [address] | | + + + + + Care Team Providers + +------+ + | Care Calf Skinner Name | Role | Phone | + +------+ + | Alvaro Bonilla MD | PCP | | + +------+ + Encounter Details +--------+ + + + + | Date | Type | Department | Care Team | Description | +--------+ + + + + | 07/22/ | Hospital | [facility] | Conversion | Pain | | 2018 | Encounter | CONVERSION [address]P [address] | Transaction, | | | | | [address] | Provider Unknown | | | | | [place], [place] | [phone] | | | | | [address] | (Fax) | | | | | [phone] | | | +--------+ + + + [...]
--- OUTSIDE RECORDS SUMMARY | ~2019-10-03 | XMS | Encounter Summary ---
Demographics + + + | Address | [address] | | | [place] [address] | + + + | Home Phone | | + + + | Preferred Language | Unknown | + + + | Marital Status | | + + + | Roman Catholic Affiliation | Unknown | + + + | Race | Unknown | + + + | Ethnic Group | Unknown | + + + Author + + + | Author | [facility] | | | and Alejandroana | + + + | Organization | [facility] | [...] [place], [place] | | | | | [address] | | + + + + + Care Team Providers + +------+ + | Care Cosmetics Machine Operator Name | Role | Phone | + +------+ + PCP | Unavailable | + +------+ + Encounter Details +--------+ + + + + | Date | Type | Department | Care Team | Description | +--------+ + + + + | 07/18/ | Hospital | [facility] | Yari Gauthier, | Atheroscler-limb&cla | | 2010 - | Encounter | CONVERSION DEP [address] | MD [address] | martha ([facility]); Hematoma | | | | [address] | [place] [address] | complicating a | | 07/20/ | | [facility] | | procedure; | | 2010 | | [address] | | Unspecified | | | | [phone] | | essential | | | | | | hypertension; DM w/o | | | | | | complication type | | | | | | II ([facility]); | | | | | | Unspecified myalgia | | | | | | and myositis; | | | | | | Unspecified | | | | | | mononeuritis of | | | | | | lower limb | +--------+ + + + + Social [...] | + +--------+ + + + | MRSA NAAT | Routin | 07/14/2011 | | Results for this | | | e | 10:10 AM | | procedure are in the | | | | PDT | | results section. | + +--------+ + + + documented in this encounter Results MRSA NAAT (07/14/2011 10:10 AM PDT) + + | Specimen | + + | | + + + + + | Narrative | Performed At | + + + | [facility](NOSE) | EXTERNAL LAB | | Testing performed at [facility];[address] [place] [address];[place] [address] MRSA PCR | | | NEGATIVE Testing performed at | | | [facility];[address] [place] [address];[place] [address] | | + + + + +---------+ + + | Performing | Address | City/State/Zipcode | Phone Number | | Organization | | | | + +---------+ + + | EXTERNAL LAB | | | | + +---------+ + + documented in this encounter Visit Diagnoses + + | Diagnosis | + + | Atherosclerosis of [place] arteries of the extremities with intermittent claudication | + + | Hematoma complicating a procedure | + + | Unspecified essential hypertension | + + | Type II or unspecified type diabetes mellitus without mention of complication, not | | stated as uncontrolled | + + | Myalgia and myositis, unspecified Mylagia and myositis, unspecified | + + | Mononeuritis of lower limb, unspecified | + + documented in this encounter"
--- OUTSIDE RECORDS SUMMARY | ~2019-10-03 | XMS | Encounter Summary ---
Demographics + + + | Address | [address] | | | [place] [address] | + + + | Home Phone | | + + + | Preferred Language | Unknown | + + + | Marital Status | | + + + | Latter Day Affiliation | Unknown | + + + | Race | Unknown | + + + | Ethnic Group | Unknown | + + + Author + + + | Author | [facility] | | | and Alejandroana | + + + | Organization | [facility] | | | and [...] [place], [place] | | | | | [address] | | + + + + + Care Team Providers + +------+ + | Care Crew Director Name | Role | Phone | + [...] | | | | (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 | | [place], [place]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 | | [address] | | | | | (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 | | [phone] | | | | | ial | | Fax: | | | | | neoplasia | | [phone] | | | | | II) | | | | | | | Procedures | | | | | | | Not Provided | | | +--------+--------+ + + + + Encounter Details +--------+ + + + + | Date | Type | Department | Care Team | Description | +--------+ + + + + | 09/10/ | Hospital | [facility] | Wade Wade, | | | 2014 | Encounter | MED CTR [place] INTRA OP | [address] | | | | | [address] | [place] | | | | | [place] | [place] [address] | | | | | [address] | [phone] | | | | | [phone] | | | +--------+ + + + [...] | | 0 | | | | (K-DURMULUGETA) 10 | 2 times daily. | | [...] [address] | [place] | [phone] | | [facility] | | [address] | | | - LABORATORY | | [...] ST. | [address] | [place], [place] | [phone] | | [facility] | | [address] | | | - LABORATORY | | [...] | | | | | Yellow | [facility] | | | | | | MEDICAL | | | | | | CENTER - | | | | | | LABORATORY | | + + + + + + | Clarity | Hazy (A) | Clear | [facility] | | | | | | [facility] | | | | | [facility] | | | | | | CENTER - | | | | | | LABORATORY | | + + + + + + | pH, Urine | 6.0 | 5.0 - 8.0 | [facility] | | | | | | [facility] | | | | | | MEDICAL | | | | | | CENTER - | | | | | | LABORATORY | | + + + + + + | Specific | 1.025 | 1.001 - 1.030 | [facility] | | | [place] | | | [facility] | | [...] [address] | [place] | [phone] | | [facility] | | [address] | | | - LABORATORY | | [...] [facility] | | | | | | [facility] | | | | | | MEDICAL | | | | | | CENTER - | | | | | | LABORATORY | | + +-------+ + + + | RBC | 4.14 | 3.70 - 5.20 | [facility] | | | | | M/uL | [facility] | | | | | | MEDICAL | | | | | | CENTER - | | | | | | LABORATORY | | + +-------+ + + + | Hemoglobin | 12.5 | 11.5 - 16.0 | [facility] | | | | | g/dL | [facility] | | | | | | [facility]ICAL | | | | | | CENTER - | | | | | | LABORATORY | | + +-------+ + + + | Hematocrit | 37.0 | 34.0 - 47.0 % | [facility] | | | | | | [facility] | | | | | | MEDICAL [...] | MPV | 7.5 | fL | [facility] | | | | | | ST. [...] [address] | [place] | [phone] | | [facility] | | [address] | | | - LABORATORY | | | | + + + + + Surgical Pathology Exam (09/10/2015 12:00 AM PDT) + + | Specimen | + + | | + + + + + | Narrative | Performed At | + + + | SPECIMEN(S): A LEFT VULVAR EXCISION SPECIMEN SOURCE: A. LEFT 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 DNN:sl:[id number] GROSS DESCRIPTION: The | | | specimen [...] section in three cassettes. | | | DDN:[facility] MICROSCOPIC EXAMINATION: Histologic sections of all | | | submitted blocks are examined by light microscopy. These findings, | | | together with the gross examination, support the pathologic diagnosis. | | | PERFORMING LABORATORY: Tissue processing and slide preparation | | | were performed by [facility], [address], | | | [place] [address] (Store Stock Help: Ascencion Juan M.D.; CLIA#: | | | [id number]). Professional interpretation was performed by [facility] | | | [facility], [address], [place] [address] | | | (Store Stock Help: Ascencion Juan M.D.; CLIA#: [id number]). | | | Diagnostician: Dread Schmitz MD [...] filedocumented in this encounter Administered Medications + +---------+ +------+-------+------+ | Medication Order | MAR | Action | Dose | Rate | Site | | | Action | Date | | | | + +---------+ +------+-------+------+ | lactated ringers (LR) infusion | New Bag | 09/10/20 | | 100 | | | at 10-100 mL/hr, Intravenous, | | 15 8:53 | | mL/hr | | | CONTINUOUS, Starting Rachael 09/10/15 | | AM PDT | | | | | at 0845, TKO., Pre-op | | | | | | + +---------+ +------+-------+------+ +---+---+ | | | +---+---+ documented in this encounter
--- OUTSIDE RECORDS SUMMARY | ~2019-10-03 | XMS | Encounter Summary ---
Demographics + + + | Address | [address] | | | [place] [address] | + + + | Home Phone | | + + + | Preferred Language | Unknown | + + + | Marital Status | | + + + | Judaism Affiliation | Unknown | + + + | Race | Unknown | + + + | Ethnic Group | Unknown | + + + Author + + + | Author | [facility] | | | and Alejandroana | + + + | Organization | [facility] | | | and Alejandroana | [...] [place], [place] | | | | | [address] | | + + + + + Care Team Providers + +------+ + | Care Manager Account Management Name | Role | Phone | + +------+ + PCP | Unavailable | + +------+ + Encounter Details +--------+ + + + + | Date | Type | Department | Care Team | Description | +--------+ + + + + | 10/22/ | Hospital | [facility] | | | | 2009 | Encounter | MED CTR LABORATORY | | | | | | [address] | | | | | | [place] | | | | | | [address] | | | | | | [phone] | | | +--------+ + + + [...]
--- OUTSIDE RECORDS SUMMARY | ~2019-10-03 | XMS | Clinical Summary ---
Demographics + + + | Address | [address] | | | [place] [address] | + + + | Home Phone | | + + + | Preferred Language | Unknown | + + + | Marital Status | | + + + | Druze Affiliation | Unknown | + + + | Race | Unknown | + + + | Ethnic Group | Unknown | + + + Author + + + | Author | [facility] (Historical as of | | | 07-06-19) | + + + | Organization | [facility] (Historical as of | | | 07-06-19) [...] [place] | | | | | [address] | | + + + + + Care Team Providers + +------+ + | Care Blood Bank Worker Name | Role | Phone | + [...] +------+-------+ + | MEDICARE | MEDICA | [id number] | | | [address] | | | [place] | | | | [place] [address] | | | IP-OP | | | | | + +--------+ +------+-------+ + | COMMERCIAL OTHER | COMMER | [id number] | | | | | | CIAL [...] | pattie | | | [address] | [address] | + +--------+ +--------+ + +
--- OUTSIDE RECORDS SUMMARY | ~2019-10-03 | XMS | Encounter Summary ---
Demographics + + + | Address | [address] | | | [place] [address] | + + + | Home Phone | | + + + | Preferred Language | Unknown | + + + | Marital Status | | + + + | Voodoo Affiliation | Unknown | + + + | Race | Unknown | + + + | Ethnic Group | Unknown | + + + Author + + + | Author | [facility] | | | and Alejandroana | + + + | Organization | [facility] | | | and Alejandroana [...] [place], [place] | | | | | [address] | | + + + + + Care Team Providers + +------+ + | Care Loom Checker Name | Role | Phone | + +------+ + PCP | Unavailable | + +------+ + Encounter Details +--------+ + + + + | Date | Type | Department | Care Team | Description | +--------+ + + + + | 01/30/ | Hospital | [facility] | | | | 1996 | Encounter | MED CTR XRAY [address] | | | | | | [address] | | | | | | [place] [address] | | | | | | [phone] | | | +--------+ + + + [...]
--- OUTSIDE RECORDS SUMMARY | ~2019-10-03 | XMS | Encounter Summary ---
Demographics + + + | Address | [address] | | | [place] [address] | + + + | Home Phone | | + + + | Preferred Language | Unknown | + + + | Marital Status | | + + + | Catholic Affiliation | Unknown | + + + | Race | Unknown | + + + | Ethnic Group | Unknown | + + + Author + + + | Author | [facility] | | | and Alejandroana | + + + | Organization | [facility] | | | and [...] [place], [place] | | | | | [address] | | + + + + + Care Team Providers + +------+ + | Care Iridologist Name | Role | Phone | + +------+ + | Alvaro Bonilla MD | PCP | | + +------+ + Encounter Details +--------+ + + + + | Date | Type | Department | Care Team | Description | +--------+ + + + + | 08/09/ | Orders Only | [facility] | Dilan Leung MD | | | 2017 | | VASCULAR SURGERY | [address] | | | | | ULTRAS[address] | [place], [place] | | | | | [place] | [address] | | | | | [place] | [phone] | | | | | [address] | | | | | | [phone] | | | +--------+ + + + [...] | + + + | FLOR Reddy [facility] 08/09/2018 4:45 PM HISTORY: | [...]
--- OUTSIDE RECORDS SUMMARY | ~2019-10-03 | XMS | Encounter Summary ---
Demographics + + + | Address | [address] | | | [place] [address] | + + + | Home Phone | | + + + | Preferred Language | Unknown | + + + | Marital Status | | + + + | Orthodoxy Affiliation | Unknown | + + + | Race | Unknown | + + + | Ethnic Group | Unknown | + + + Author + + + | Author | [facility] | | | and Alejandroana | + + + | Organization | [facility] | | | and Alejandroana [...] [place], [place] | | | | | [address] | | + + + + + Care Team Providers + +------+ + | Care Airport Refueling Handler Name | Role | Phone | + +------+ + PCP | Unavailable | + +------+ + Encounter Details +--------+ + + + + | Date | Type | Department | Care Team | Description | +--------+ + + + + | 07/08/ | Hospital | [facility] | Ney Stark MD | Atheroscler-limb&cla | | 2010 | Encounter | CONVERSION DEP [address] | | udkatherine ([facility]) | | | | [address] | | | | | | [place], [place] | | | | | | [address] | | | | | | [phone] | | | +--------+ + + + [...] + | CV VASCULAR | Routin | 07/08/2011 | | Results for this | | PROCEDURE | e | 5:40 PM | | procedure are in the | | | | PDT | | results section. | + +--------+ + + + documented in this encounter Results CV VASCULAR PROCEDURE (07/08/2011 5:40 PM PDT) + + | Specimen | + + | | + + + + + | Narrative | Performed At | + + + | Located within [facility] [address] Ph: | | | Patient Name: FLRO HENLEY Date of : | | | 1945 Medical Record: [id number] Account: [id number] | | | Exam Date/Time: 07/08/2011 15:30 Ordering | | | Physician: NEY STARK Order Detail: [id number] Exam Description: | | | CCL ANGIOGRAPHY EXTREMITY KJ | | | | | | PROCEDURES 1. Pelvic angiography. 2. Selective right lower extremity | | | angiography with distal runoff. 3. Selective left lower extremity | | | angiography with distal runoff. INDICATIONS The patient is a | | | 65-year-old lady who has been complaining of right lower | | | extremity intermittent claudication. The patient was evaluated by | | | Disha, and failed noninvasive workup revealed evidence of | | | significant stenosis at the level of the right popliteal artery. The | | | patient was subsequently referred to me for a peripheral angiogram in | | | order to define her vascular anatomy and plan revascularization | | | accordingly. DESCRIPTION OF PROCEDURE The patient presented to | | | the cardiac catheterization lab in the fasting state. An informed | | | consent was obtained from the patient after explaining the risks and | | | benefits of the procedures, as well as alternative options. The | | | left groin area was prepped and draped in the usual sterile | | | fashion. Local anesthesia was given to the left groin with 1% | | | lidocaine. A 4-Angolan vascular sheath was inserted in the left | | | femoral artery using the modified Seldinger technique. Subsequently, a | | | 4-Angolan Omni Flush catheter was advanced over a wire and positioned | | | in the distal aorta just above the aortic bifurcation. A pelvic | | | angiogram was obtained in the AP projection using a total of 20 mL of | | | contrast. The Omni Flush catheter was then advanced over an angled | | | Rutledge wire to the right common femoral artery. A right lower | | | extremity angiogram with distal runoff was then performed using a | | | total of 30 mL of contrast. The Omni Flush catheter was then | | | retrieved over a wire and a left lower extremity angiogram with | | | distal runoff was obtained via the side port of the vascular sheath. | | | Subsequently, the sheath was pulled, and hemostasis was obtained | | | using manual compression. FINDINGS PELVIC ANGIOGRAM The | | | common and external iliac arteries were angiographically normal | | | bilaterally. RIGHT LOWER EXTREMITY ANGIOGRAM WITH DISTAL RUNOFFThe | | | right common femoral artery, profunda femoris artery, and | | | superficial femoral artery were angiographically normal without any | | | significant stenosis. The right popliteal artery had a discrete 90% | | | stenosis in its proximal segment. Three-vessel distal runoff was | | | noted in the right lower extremity without any significant popliteal | | | disease. LEFT LOWER EXTREMITY ANGIOGRAM WITH DISTAL RUNOFF The | | | left common femoral artery, profunda femoris artery, and superficial | | | femoral artery, and popliteal artery were all angiographically | | | normal and free of any significant obstructive stenosis. Three-vessel | | | distal runoff was noted in the left lower extremity with no evidence | | | of significant popliteal disease. ESTIMATED BLOOD LOSS Less | | | than 50 mL. IMPRESSION Discrete right popliteal artery stenosis | | | as described above. RECOMMENDATIONS The angiogram will be | | | reviewed and discussed with Dr. Gauthier in order to plan | | | revascularization, either surgically or percutaneously. Further | | | recommendations will be based on Dr. Gauthier's review of the | | | angiographic images. The patient will be maintained on medical therapy | | | with aggressive risk factor modification. | | | P P [facility]/[id number]/ Read by NEY | | | MD KIERSTEN 07/11/2011 09:13 P | | + + + + + | Procedure Note | + + | Jay Mtaa Conversion - 07/13/2019 1:48 PM PDT | | [facility] | | [facility] [address] | | | | | | Patient Name: FLOR HENLEY | | Date of : 1945 | | Medical Record: [id number] | | Account: [id number] | | | | | | Exam Date/Time: 07/08/2011 15:30 | | Ordering Physician: NEY STARK | | Order Detail: [id number] | | Exam Description: CCL ANGIOGRAPHY EXTREMITY KJ | | | | PROCEDURES | | 1. Pelvic angiography. | | 2. Selective right lower extremity angiography with distal runoff. | | 3. Selective left lower extremity angiography with distal runoff. | | | | INDICATIONS | | The patient is a 65-year-old lady who has been complaining of | | right lower extremity intermittent claudication. The patient was | | evaluated by Dr. Gauthier, and failed noninvasive workup revealed | | evidence of significant stenosis at the level of the right popliteal | | artery. The patient was subsequently referred to me for a peripheral | | angiogram in order to define her vascular anatomy and plan | | revascularization accordingly. | | | | DESCRIPTION OF PROCEDURE | | The patient presented to the cardiac catheterization lab in the fasting | | state. An informed consent was obtained from the patient after | | explaining the risks and benefits of the procedures, as well as | | alternative options. The left groin area was prepped and draped in the | | usual sterile fashion. Local anesthesia was given to the left groin with | | 1% lidocaine. A 4-Angolan vascular sheath was inserted in the left | | femoral artery using the modified Seldinger technique. Subsequently, a | | 4-Angolan Omni Flush catheter was advanced over a wire and positioned in | | the distal aorta just above the aortic bifurcation. A pelvic angiogram | | was obtained in the AP projection using a total of 20 mL of contrast. | | The Omni Flush catheter was then advanced over an angled Rutledge wire to | | the right common femoral artery. A right lower extremity angiogram with | | distal runoff was then performed using a total of 30 mL of contrast. The | | Omni Flush catheter was then retrieved over a wire and a left lower | | extremity angiogram with distal runoff was obtained via the side port of | | the vascular sheath. Subsequently, the sheath was pulled, and hemostasis | | was obtained using manual compression. | | | | FINDINGS | | | | PELVIC ANGIOGRAM | | The common and external iliac arteries were angiographically normal | | bilaterally. | | | | RIGHT LOWER EXTREMITY ANGIOGRAM WITH DISTAL RUNOFFThe right common | | femoral artery, profunda femoris artery, and superficial femoral artery | | were angiographically normal without any significant stenosis. The right | | popliteal artery had a discrete 90% stenosis in its proximal segment. | | Three-vessel distal runoff was noted in the right lower extremity | | without any significant popliteal disease. | | | | LEFT LOWER EXTREMITY ANGIOGRAM WITH DISTAL RUNOFF | | The left common femoral artery, profunda femoris artery, and superficial | | femoral artery, and popliteal artery were all angiographically normal | | and free of any significant obstructive stenosis. Three-vessel distal | | runoff was noted in the left lower extremity with no evidence of | | significant popliteal disease. | | | | ESTIMATED BLOOD LOSS | | Less than 50 mL. | | | | IMPRESSION | | Discrete right popliteal artery stenosis as described above. | | | | RECOMMENDATIONS | | The angiogram will be reviewed and discussed with Dr. Gauthier in order | | to plan revascularization, either surgically or percutaneously. Further | | recommendations will be based on Dr. Gauthier's review of the | | angiographic images. The patient will be maintained on medical therapy | | with aggressive risk factor modification. | | | | P | | P | | [facility]/[id number]/ | | | | Read by | | NEY STARK MD 07/11/2011 09:13 P | | | | | + + documented in this encounter Visit Diagnoses + + | Diagnosis | + + | Atherosclerosis of [place] arteries of the extremities with intermittent claudication | + + documented in this encounter"
--- OUTSIDE RECORDS SUMMARY | ~2019-10-03 | XMS | Encounter Summary ---
Demographics + + + | Address | [address] | | | [place] [address] | + + + | Home Phone | | + + + | Preferred Language | Unknown | + + + | Marital Status | | + + + | Gnosticist Affiliation | Unknown | + + + | Race | Unknown | + + + | Ethnic Group | Unknown | + + + Author + + + | Author | [facility] | | | and Alejandroana | + + + | Organization | [facility] | | | and Alejandroana | + + + | Address | Unknown | + + + | Phone | Unavailable | + + + Support + + + + + | Name | Relationship | Address | Phone | + + + + + | Bharath Hill | ECON | [address] | | | | | [place], [place] | | | | | [address] | | + + + + + Care Team Providers + +------+ + | Care Finance Officer Name | Role | Phone | + +------+ + PCP | Unavailable | + +------+ + Encounter Details +--------+ + + + + | Date | Type | Department | Care Team | Description | +--------+ + + + + | 04/10/ | Hospital | [facility] GENER[facility] IP | Conversion | Pain | | 2013 | Encounter | CONVERSION DEP [address] | Transaction, | | | | | [address] | Provider Unknown | | | | | [place] | [phone] | | | | | [address] | | | | | | [phone] | | | +--------+ + + + [...] | + +--------+ + + + | ART DPLX ARM UNILAT | Routin | 08/02/2011 | | Results for this | | RIGHT | e | 12:49 AM | | procedure are in the | | | | PDT | | results section. | + +--------+ + + + documented in this encounter Results VENOUS DPLX OR VEIN MAPPING UNI (08/02/2011 12:49 AM PDT) + + | Specimen | + + | | + + + + + | Narrative | Performed At | + + + | This is a non-reportable procedure without a radiologist report and | | | is used for image storage only | | + + + + + | Procedure Note | + + | Jay Mata Conversion - 07/05/2019 7:01 PM PDT This is a non-reportable procedure | | without a radiologist report and isused for image storage only | + + documented in this encounter Visit Diagnoses + + | Diagnosis | + + | Pain Generalized pain | + + documented in this encounter"
--- OUTSIDE RECORDS SUMMARY | ~2019-10-03 | XMS | Encounter Summary ---
Demographics + + + | Address | [address] | | | [place] [address] | + + + | Home Phone | | + + + | Preferred Language | Unknown | + + + | Marital Status | | + + + | Samaritan Affiliation | Unknown | + + + | Race | Unknown | + + + | Ethnic Group | Unknown | + + + Author + + + | Author | [facility] | | | and Alejandroana | + + + | Organization | [facility] | | | and [...] [place], [place] | | | | | [address] | | + + + + + Care Team Providers + +------+ + | Care Legal Adviser Name | Role | Phone | + [...] | | | | (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 | | [place], [place]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 | | [address] | | | | | (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 | [place] | [phone] | | [facility] | | [address] | | | - LABORATORY | | [...] ST. | [address] | [place], [place] | [phone] | | [facility] | | [address] | | | - LABORATORY | | [...] - 1.030 | [facility] | | | [place] | | | [facility] | | [...] [address] | [place] | [phone] | | [facility] | | [address] | | | - LABORATORY | | [...] [address] | [place] | [phone] | | [facility] | | [address] | | | - LABORATORY | | | | + + + + + Surgical Pathology Exam (09/10/2015 12:00 AM PDT) + + | Specimen | + + | | + + + + + | Narrative | Performed At | + + + | SPECIMEN(S): A LEFT VULVAR EXCISION SPECIMEN SOURCE: A. LEFT [facility] PATH[facility] | | VULVAR EXCISION CLINICAL HISTORY: [...] section in three cassettes. | | | DDN:[facility] MICROSCOPIC EXAMINATION: Histologic sections of all | | | submitted blocks are examined by light microscopy. These findings, | | | together with the gross examination, support the pathologic diagnosis. | | | PERFORMING LABORATORY: Tissue processing and slide preparation | | | were performed by [facility], [address], | | | [place] [address] (Shock Absorption Floor Layer: Ascencion Juan M.D.; CLIA#: | | | [id number]). Professional interpretation was performed by [facility] | | | [employer], [address], [place] [address] | | | (Shock Absorption Floor Layer: Ascencion Juan M.D.; CLIA#: [id number]). | | | Diagnostician: Dread Schmitz MD [...]
--- OUTSIDE RECORDS SUMMARY | ~2019-10-03 | XMS | Encounter Summary ---
Demographics + + + | Address | [address] | | | [place] [address] | + + + | Home Phone | | + + + | Preferred Language | Unknown | + + + | Marital Status | | + + + | Episcopal Affiliation | Unknown | + + + | Race | Unknown | + + + | Ethnic Group | Unknown | + + + Author + + + | Author | [facility] | | | and Alejandroana | + + + | Organization | [facility] | | | and Alejandroana [...] [place], [place] | | | | | [address] | | + + + + + Care Team Providers + +------+ + | Care Marketing Technology Specialist Name | Role | Phone | [...] | MD [address] | martha ([facility]); Hematoma | | | | [address] | [place] [address] | complicating a | | 07[facility]20/ | | [facility] | | procedure; | | 2010 | | [address] | | Unspecified | | | | [phone] | | essential | | | | | | hypertension; DM w/o | | | | | | complication type | | | | | | II ([facility]); | | | | | | Unspecified [...] EXTERNAL LAB | | Testing performed at [facility];[address] [place] [address];[place] [address] MRSA PCR | | | NEGATIVE Testing performed at | | | [facility];[address] [place] [address];[place] [address] | | + + + + +---------+ + + | Performing | Address | City/State/Zipcode | Phone Number | | Organization | | | | + +---------+ + + | EXTERNAL LAB | | | | + +---------+ + + documented in this encounter Visit Diagnoses + + | Diagnosis | + + | Atherosclerosis of [place] arteries of the extremities with intermittent claudication [...]
--- OUTSIDE RECORDS SUMMARY | ~2019-10-03 | XMS | Encounter Summary ---
Demographics + + + | Address | [address] | | | [place] [address] | + + + | Home Phone | | + + + | Preferred Language | Unknown | + + + | Marital Status | | + + + | Jehovah'S Witness Affiliation | Unknown | + + + | Race | Unknown | + + + | Ethnic Group | Unknown | + + + Author + + + | Author | [facility] | | | and Alejandroana | + + + | Organization | [facility] | | | and Alejandroana [...] [place], [place] | | | | | [address] | | + + + + + Care Team Providers + +------+ + | Care Database Report Writer Name | Role | Phone | + +------+ + PCP | Unavailable | + +------+ + Encounter Details +--------+ + + + + | Date | Type | Department | Care Team | Description | +--------+ + + + + | 01/28/ | Hospital | [facility] | | | | 1993 | Encounter | MED CTR XRAY [address] | | | | | | [address] [place] | | | | | | [place] [address] | | | | | | [phone] | | | +--------+ + + + [...]
--- OUTSIDE RECORDS SUMMARY | ~2019-10-03 | XMS | Encounter Summary ---
Demographics + + + | Address | [address] | | | [place] [address] | + + + | Home Phone | | + + + | Preferred Language | Unknown | + + + | Marital Status | | + + + | Moravian Affiliation | Unknown | + + + | Race | Unknown | + + + | Ethnic Group | Unknown | + + + Author + + + | Author | [facility] | | | and Alejandroana | + + + | Organization | [facility] | | | and Alejandroana [...] [place], [place] | | | | | [address] | | + + + + + Care Team Providers + +------+ + | Care Awning Finisher Name | Role | Phone | + +------+ + PCP | Unavailable | + +------+ + Encounter Details +--------+ + + + + | Date | Type | Department | Care Team | Description | +--------+ + + + + | 08/17/ | Hospital | [facility] | | | | 2000 | Encounter | MED CTR LABORATORY | | | | | | [address] | | | | | | [place] | | | | | | [address] | | | | | | [phone] | | | +--------+ + + + [...]
--- OUTSIDE RECORDS SUMMARY | ~2019-10-03 | XMS | Encounter Summary ---
Demographics + + + | Address | [address] | | | [place] [address] | + + + | Home Phone | | + + + | Preferred Language | Unknown | + + + | Marital Status | | + + + | Yarsani Affiliation | Unknown | + + + | Race | Unknown | + + + | Ethnic Group | Unknown | + + + Author + + + | Author | [facility] | | | and Alejandroana | + + + | Organization | [facility] | | | and Alejandroana | + + + | Address | Unknown | + + + | Phone | Unavailable | + + + Support + + + + + | Name | Relationship | Address | Phone | + + + + + | Bharath Henley | ECON | [address] | | | | | [place] | | | | | [address] | | + + + + + Care Team Providers + +------+ + | Care Level Vial Inspector And Tester Name | Role | Phone | + +------+ + | Alvaro Bonilla MD | PCP | | + +------+ + Encounter Details +--------+ + + + + | Date | Type | Department | Care Team | Description | +--------+ + + + + | 07/21/ | Orders Only | AMIRAH PARIKH | Yari Gauthier, | | | 2010 | | [facility] | [address] | | | | | CLINICAL LABORATORY | [place] [address] | | | | | [address] | | | | | | [place], [place] | | | | | | [address] | | | | | | [phone] | | | +--------+ + + + [...] | + +--------+ + + + | TISSUE REQUEST FOR | Routin | 07/21/2011 | | Results for this | | PATHOLOGY (NON-ORD) | e | 8:52 AM | | procedure are in the | | | | PDT | | results section. | + +--------+ + + + documented in this encounter Results Tissue Request For Pathology (07/21/2011 8:52 AM PDT) + + | Specimen | + + | | + + + + + | Narrative | Performed At | + + + | CASE: [id number] PATIENT: FLOR HENLEY Surgical Pathology Report | EXTERNAL LAB | | PATHOLOGIC DIAGNOSIS: RIGHT POPLITEAL ARTERY, | | | ENDARTERECTOMY: - ATHEROSCLEROTIC PLAQUE. BES:lc:C2NR | | | CLINICAL HISTORY: 07/18/11 at 12:00 H. Peripheral vascular | | | disease. GROSS DESCRIPTION: The specimen is received in | | | formalin labeled "Flor Henley" and designated "Right popliteal | | | plaque" consists of a 1.7 x 1.5 x 0.6 cm aggregate of yellow-brown | | | tubular shaped tissue fragments. The specimen is serially sectioned | | | and entirely submitted in cassette A1. fam:dior MICROSCOPIC | | | EXAMINATION: Histologic sections of all submitted blocks are | | | examined by light microscopy. These findings, together with the gross | | | examination, support the pathologic diagnosis. Adi Barajas | | | Adriana BETTS Electronically signed Jul 21, 2011 8:52:28AM | | + + + + +---------+ + + | Performing | Address | City/State/Zipcode | Phone Number | | Organization | | | | + +---------+ + + | EXTERNAL LAB | | | | + +---------+ + + documented in this encounter Visit Diagnoses Not on filedocumented in this encounter
--- OUTSIDE RECORDS SUMMARY | ~2019-10-03 | XMS | Encounter Summary ---
Demographics + + + | Address | [address] | | | [place] [address] | + + + | Home Phone | | + + + | Preferred Language | Unknown | + + + | Marital Status | | + + + | Jew Affiliation | Unknown | + + + | Race | Unknown | + + + | Ethnic Group | Unknown | + + + Author + + + | Author | [facility] | | | and Alejandroana | + + + | Organization | [facility] | | | and Alejandroana [...] [place], [place] | | | | | [address] | | + + + + + Care Team Providers + +------+ + | Care Side Piece Coverer Name | Role | Phone | + +------+ + PCP | Unavailable | + +------+ + Encounter Details +--------+ + + + + | Date | Type | Department | Care Team | Description | +--------+ + + + + | 04/10/ | Hospital | [facility] GENER[facility] IP | Conversion | Pain | | 2013 | Encounter | CONVERSION DEP [address] | Transaction, | | | | | [address] | Provider Unknown | | | | | [place] | [phone] | | | | | [address] | | | | | | [phone] | | | +--------+ + + + [...]
--- OUTSIDE RECORDS SUMMARY | ~2019-10-03 | XMS | Encounter Summary ---
Demographics + + + | Address | [address] | | | [place] [address] | + + + | Home Phone | | + + + | Preferred Language | Unknown | + + + | Marital Status | | + + + | Taoism Affiliation | Unknown | + + + | Race | Unknown | + + + | Ethnic Group | Unknown | + + + Author + + + | Author | [facility] | | | and Alejandroana | + + + | Organization | [facility] | | | and [...] [place] | | | | | [address] | | + + + + + Care Team Providers + +------+ + | Care Web Marketing Specialist Name | Role | Phone | + +------+ + | Alvaro Bonilla MD | PCP | | + +------+ + Encounter Details +--------+ + + + + | Date | Type | Department | Care Team | Description | +--------+ + + + + | 07/21/ | Orders Only | AMIRAH PARIKH | Yari Gauthier, | | | 2010 | | [facility] | [address] | | | | | CLINICAL LABORATORY | [place] [address] | | | | | [address] | | | | | | [place], [place] | | | | | | [address] | | | | | | [phone] | | | +--------+ + + + [...] At | + + + | CASE: [id number] PATIENT: FLOR HENLEY Surgical Pathology Report | [...]
--- OUTSIDE RECORDS SUMMARY | ~2019-10-03 | XMS | Encounter Summary ---
Demographics + + + | Address | [address] | | | [place] [address] | + + + | Home Phone | | + + + | Preferred Language | Unknown | + + + | Marital Status | | + + + | Confucianist Affiliation | Unknown | + + + | Race | Unknown | + + + | Ethnic Group | Unknown | + + + Author + + + | Author | [facility] | | | and Alejandroana | + + + | Organization | [facility] | | | and Alejandroana [...] [place], [place] | | | | | [address] | | + + + + + Care Team Providers + +------+ + | Care Florist Name | Role | Phone | + +------+ + | Alvaro Bonilla MD | PCP | | + +------+ + Encounter Details +--------+ + + + + | Date | Type | Department | Care Team | Description | +--------+ + + + + | 06/17/ | Orders Only | [facility] | Provider, | | | 2018 | | SYSTEM GENERIC OP | [address] | | | | | [address]VERSION [address] | [address]. | | | | | [address] [place], [place] | [place] [address] | | | | | [address] | | | | | | [phone] | | | +--------+ + + + [...]
--- OUTSIDE RECORDS SUMMARY | ~2019-10-03 | XMS | Clinical Summary ---
Demographics + + + | Address | [address] | | | [place] [address] | + + + | Home Phone | | + + + | Preferred Language | Unknown | + + + | Marital Status | | + + + | Pentecostalism Affiliation | Unknown | + + + | Race | Unknown | + + + | Ethnic Group | Unknown | + + + Author + + + | Author | [facility] | | | and Alejandroana | + + + | Organization | [facility] | | | and [...] [place], [place] | | | | | [address] | | + + + + + Care Team Providers + +------+ + | Care Car Cooper Name | Role | Phone | + [...] +--------+ +---------+--------+ | MEDICARE | MEDICA | [id number] | | [phone] | | Medica | | | RE | | 010-Pr | 5 | | re | | | PART A | | esent | | | | | | AND B | | | | | | + +--------+ +--------+ +---------+--------+ | [employer] | UNITED | [id number] | | [phone] | | Indemn | | | OF | | 010-Pr | 0 | | ity | | | [place]HA | | esent | | | | [...] | 1945 | [phone] | [place] [address] | | | pattie | | | 0 (Home) | | + +--------+ +--------+ + + Advance Directives + + + + + | Type | Date Recorded | Patient | Explanation | | | | Coverage Specialist Rn | | + + + + + | Power of | | | | | Adult Health Clinical Nurse Specialist | | | | + + + [...]
--- OUTSIDE RECORDS SUMMARY | ~2019-10-03 | XMS | Encounter Summary ---
Demographics + + + | Address | [address] | | | [place] [address] | + + + | Home Phone | | + + + | Preferred Language | Unknown | + + + | Marital Status | | + + + | Religion Affiliation | Unknown | + + + | Race | Unknown | + + + | Ethnic Group | Unknown | + + + Author + + + | Author | [facility] | | | and Alejandroana | + + + | Organization | [facility] [...] [place], [place] | | | | | [address] | | + + + + + Care Team Providers + +------+ + | Care Outside Plant Technician Name | Role | Phone | + +------+ + PCP | Unavailable | + +------+ + Encounter Details +--------+ + + + + | Date | Type | Department | Care Team | Description | +--------+ + + + + | 10/27/ | Hospital | [facility] | | | | 2009 | Encounter | [facility] OP | | | | | | [address] | | | | | | [place] | | | | | | [address] | | | | | | [phone] | | | +--------+ + + + [...]
--- OUTSIDE RECORDS SUMMARY | ~2019-10-03 | XMS | Encounter Summary ---
Demographics + + + | Address | [address] | | | [place] [address] | + + + | Home Phone | | + + + | Preferred Language | Unknown | + + + | Marital Status | | + + + | Latter Day Affiliation | Unknown | + + + | Race | Unknown | + + + | Ethnic Group | Unknown | + + + Author + + + | Author | [facility] | | | and Alejandroana | + + + | Organization | [facility] | | | and [...] [place], [place] | | | | | [address] | | + + + + + Care Team Providers + +------+ + | Care Water/Wastewater Engineer Name | Role | Phone | + [...] | CONVERSION [address] | | [address] ([facility]) | | | | [address] | | | | | | [place], [place] | | | | | | [address] | | | | | | [phone] | | | +--------+ + + + [...] Performed At | + + + | [facility] [address] Ph: | | | Patient Name: FLOR HENLEY Date of : | | | 1945 Medical Record: [id number] Account: [id number] | | | Exam Date/Time: 07/08/2011 15:30 Ordering | | | Physician: NEY STARK Order Detail: [id number] Exam Description: | | | CCL ANGIOGRAPHY [...] with 1% | | | lidocaine. A 4-Norwegian vascular sheath was inserted in the left | | | femoral artery using the modified Seldinger technique. Subsequently, a | | | 4-Norwegian Omni Flush catheter was advanced over a wire and positioned | | | in the distal aorta just above the aortic bifurcation. A pelvic | | | angiogram was obtained in the AP projection using a total of 20 mL of | | | contrast. The Omni Flush catheter was then advanced over an angled | | | Lamar wire to the right common femoral artery. [...] factor modification. | | | P P [facility][id number]/ Read by NEY | | | MD KIERSTEN 07/11/2011 09:13 P | | + + + + + | Procedure Note | + + | Jay Mata Conversion - 07/13/2019 1:48 PM PDT | | [facility] | | [facility] [address] | | | | | | Patient Name: FLOR HENLEY | | Date of : 1945 | | Medical Record: [id number] | | Account: [id number] | | | | | | Exam [...] patient was | | evaluated by Dr. Gauhtier, and failed noninvasive workup revealed | | [...] groin with | | 1% lidocaine. A 4-Norwegian vascular sheath was inserted in the left | | femoral artery using the modified Seldinger technique. Subsequently, a | | 4-Norwegian Omni Flush catheter was advanced over a wire and positioned in | | the distal aorta just above the aortic bifurcation. A pelvic angiogram | | was obtained in the AP projection using a total of 20 mL of contrast. 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
[~2019-10-03 11:58] MED LIST changes: +ASPIR-TRIN325 MG PO; -ASPIRIN325 MG PO; +CRESTOR10 MG PO; +FLONASE ALLERG9.9 ML NAS; +FLUOXETINE HCL20 MG PO; +LOSARTAN POTAS100 MG PO; +MEMANTINE HCL10 MG PO; +METFORMIN HCL850 MG PO; +MULTI COMPLETE1 EACH PO; +NEURONTIN300 MG PO; +NIFEDIPINE ER60 MG PO; +OCUVEL CAPSULE1 EACH PO; +OCUVITE TABLET1 EAC1 PO; +OXYCODONE HCL5 MG PO; +SENNA LAX8.6 MG PO; +SINGULAIR10 MG PO; +VITAMIN D-32000 UNIT PO; +VITAMIN D32000 UNI1 PO; +VOLTAREN100 GM TOP
[2019-10-03] MEDS ORDERED: ULTRAM50 MG PO (13:32)
== END 2019-10-03 13:56 | disposition home or self-care (01) ==
LOC: ED 11:58
DX: S01.01XA Laceration without foreign body of scalp, initial encounter (principal); M25.561 Pain in right knee; Z87.891 Personal history of nicotine dependence; Z88.2 Allergy status to sulfonamides; Z88.8 Allergy status to other drugs, medicaments and biological substances; Z88.6 Allergy status to analgesic agent; Z79.899 Other long term (current) drug therapy; Z79.84 Long term (current) use of oral hypoglycemic drugs; Z79.82 Long term (current) use of aspirin; W06.XXXA Fall from bed, initial encounter
CPT/HCPCS: 70450; 73560; 99284-25

== ENCOUNTER 2019-12-13 09:31 | Day surgery (SDC) | payer MEDICARE, OTHER ==
[~2019-12-13] VITALS: Ht 160 cm; Wt 77.1 kg
[~2019-12-13 09:31] MED LIST changes: +ULTRAM50 MG PO
--- NOTE | 2019-12-13 11:15 | NUR ---
12/13/19 1115 Danya Whitten 1110 PATIENT ARRIVES TO PACU SLEEPING, AWAKENS WITH VERBAL STIMULI, ANSWERS QUESTIONS APPROPRIATELY, THEN BACK TO SLEEP. PASSING GAS. RESP EVEN AND UNLABORED, NC AT 3 LITERS. TURNED OFF ON ARRIVAL TO PACU WITH ROOM AIR SATS >90%.
--- NOTE | 2019-12-13 18:36 | OR ---
[facility] [address] [place], [place] [address] Signed DATE OF OPERATION: 12/13/2019 SURGEON: Cristin Pennington MD PREOPERATIVE DIAGNOSES: 1. Episodic prodigious rectal bleeding. 2. Grade 4 hemorrhoidal changes. POSTOPERATIVE DIAGNOSES: 1. Polyp at hepatic flexure (excised). 2. Grade 4 hemorrhoids. PROCEDURE: Total colonoscopy to cecum with hot snare polypectomy x1 with application of hemoclips. ANESTHESIA: Intravenous sedation, fentanyl 100 mcg, Versed 6 mg. INDICATION: This 74-year-old white woman is a patient of Dr. Canales and has advanced grade 4 hemorrhoidal disease, which manifests as bleeding as well as anal leakage. She does not have serene fecal incontinence and her sphincter tone is reasonably normal. She does have rather significant hemorrhoidal changes, however. There is no sign of fissure. She is admitted to undergo colonoscopy, anticipating probable open hemorrhoidectomy in the near future. FINDINGS: The prep was good. Complete colonoscopy was undertaken to the cecum without question. She had a sessile polyp at the hepatic flexure, which strangely did have a small amount of hemorrhage associated with it. This was excised with hot snare polypectomy technique. Although, she was off Plavix for 3 days in advance, there was still oozing of blood and therefore, hemoclips were applied with good hemostatic effect. Retroflexed view did confirm extensive hemorrhoidal changes. DESCRIPTION OF PROCEDURE: The patient was brought to the endoscopy suite and placed in lateral decubitus position, given intravenous sedation to the point of slurred speech and nystagmus. Preoperative antibiotic clindamycin was given based on a recent knee replacement operation she has had. After satisfactory intravenous sedation, digital rectal examination was performed, showing no sign of anal rectal mass, only hemorrhoidal changes. An Olympus video Electronically Signed By: CRISTIN PENNINGTON MD 12/13/19 1836 PATIENT NAME: STEVIE HENLEY OPERATIVE REPORT DATE OF : 45 REPORT #: [id number] PHYSICIAN: CRISTIN PENNINGTON MD PCP: SAHIL CANALES MD REPORT IS CONFIDENTIAL AND NOT TO BE RELEASED WITHOUT AUTHORIZATION [facility] [address] [place], [place] [address] Signed colonoscope was passed in the rectum and manipulated throughout the colon. At approximately the hepatic flexure, a sessile polyp was noted. Strangely, it had a bit of hemorrhage associated with it. It was not actively bleeding, but there was some small amount of blood there. This was excised with hot snare polypectomy technique. As there had been shown to have persistent oozing, three hemoclips were applied ultimately with good hemostatic effect. The scope was then advanced beyond that point, ultimately to the cecum. The ileocecal valve and appendiceal orifice were normal. Scope was withdrawn and examination showed no sign of abnormality. At the hepatic flexure, the area of previous polypectomy was identified, showing good hemostasis. Further withdrawal of scope showed no other abnormality of the colon. Retroflexed view of the rectum showed internal hemorrhoidal changes as expected. The scope was then removed. The patient was taken to recovery room in good condition. CONCLUDING DIAGNOSES: 1. Polyp at hepatic flexure, excised. 2. Internal and external hemorrhoidal changes (grade 4 hemorrhoids). PLAN: We will make plans for operative open hemorrhoidectomy in the near future. She will need to be off her Plavix more than three days in advance for that procedure. She will call our office on Monday to coordinate a time. MD MATT Oconnell/BECKYL /[id number] cc: Sahil Canales MD Copies: SAHIL CANALES MD ~ Electronically Signed By: CRISTIN PENNINGTON MD 12/13/19 1836 PATIENT NAME: STEVIE HENLEY OPERATIVE REPORT DATE OF : 45 REPORT #: [id number] PHYSICIAN: CRISTIN PENNINGTON MD PCP: SAHIL CANALES MD REPORT IS CONFIDENTIAL AND NOT TO BE RELEASED WITHOUT AUTHORIZATION
--- NOTE | 2019-12-17 13:21 | PATH ---
[facility] [address] [place], [place] [address] Signed SPECIMEN(S): A HEPATIC FLEXURE POLYP SPECIMEN SOURCE: A. HEPATIC FLEXURE POLYP CLINICAL HISTORY: Surveillance colonoscopy/polyp at hepatic flexure; internal hemorrhoids. MICROSCOPIC DESCRIPTION: Histologic sections of all submitted blocks are examined by light microscopy. These findings, together with the gross examination, support the pathologic diagnosis. FINAL PATHOLOGIC DIAGNOSIS: Colon, hepatic flexure, polyp, polypectomy: - Fragment of inflammatory-type polyp. - Fragments of colonic mucosa with no histopathologic abnormality. - Negative for dysplasia or malignancy. NAL:caw:C2NR GROSS DESCRIPTION: The specimen, labeled "PM," and designated on the requisition "hepatic flexure polyp," is received in formalin and consists of four la soft tissue fragment(s) that measure 0.2-0.3 cm in greatest dimension. The specimen is entirely submitted in cassette (A1). FB (under the direct supervision of a pathologist) The Gross Description was prepared using a voice recognition system. The report was reviewed for accuracy; however, sound-alike word errors, addition and/or deletions may occur. If there is any question about this report, please contact Client Services. PERFORMING LABORATORY: The technical component was performed by [employer], [address] [place] [address] (Hand Tile Maker: Kanwal Laguna MD; CLIA# [id number]). Professional interpretation was performed by [facility], [address] [address] (Hand Tile Maker: nAgel Funez MD; CLIA# [id number]). Diagnostician: Luz Fonseca MD Pathologist Electronically Signed 12/17/2019 PATIENT NAME: STEVIE HENLEY PATHOLOGY DATE OF : [birth year] REPORT #: [id number] PHYSICIAN: [facility] PCP: SAHIL CANALES MD REPORT IS CONFIDENTIAL AND NOT TO BE RELEASED WITHOUT AUTHORIZATION [address] [address] Signed Copies: ~ PATIENT NAME: STEVIE HENLEY PATHOLOGY DATE OF : 45 REPORT #: [id number] PHYSICIAN: AMIE PATHOLOGY PCP: SAHIL CANALES MD REPORT IS CONFIDENTIAL AND NOT TO BE RELEASED WITHOUT AUTHORIZATION
== END 2019-12-13 11:50 | disposition home or self-care (01) ==
LOC: OPS 09:31 → DS 09:36 → OPS 11:50
PROVIDERS: Surgery
PROC: 0DBL8ZZ Excision of Transverse Colon, Via Natural or Artificial Opening Endoscopic (ICD-10-PCS; principal; 2019-12-13 10:45)
DX: K51.40 Inflammatory polyps of colon without complications (principal); K64.3 Fourth degree hemorrhoids; K64.4 Residual hemorrhoidal skin tags; E11.9 Type 2 diabetes mellitus without complications; I10 Essential (primary) hypertension; G47.30 Sleep apnea, unspecified; I70.8 Atherosclerosis of other arteries; Z91.048 Other nonmedicinal substance allergy status
CPT/HCPCS: 99153; G0500; J0690; J2250; J3010; J7121

== ENCOUNTER 2020-01-02 08:00 | Day surgery (SDC) | payer MEDICARE, OTHER ==
[~2020-01-02] VITALS: Ht 160 cm; Wt 77.1 kg
--- NOTE | 2020-01-02 11:07 | NUR ---
[facility]02[facility]20 [facility]7 [facility] PACU FROM [place] ON 6 L VIA MASK AND NASAL AIRWAY IN LEFT NARES. PT AWAKE AND VERBALIZING WITH STAFF. PT ANSWERS QUESTIONS APPRPROPRIATELY. VSS. BEDSIDE GLUCOSE 69. ORDERS RECEIVED FOR DISCONTINUING LR AND STARTING D5LR BY DR.MCBEE ALIS JAY CRNA. PT HAD SPINAL AND IV SEDATION. PT DENIES PAIN/.NAUSEA.
[2020-01-02] MEDS ORDERED: TYLENOL EXTRA500 MG PO (11:15)
[2020-01-02] MEDS ORDERED: IBUPROFEN600 MG PO (11:15)
[2020-01-02] MEDS ORDERED: DILTIAZEM HCL10 GM TOP (11:15)
[2020-01-02] MEDS ORDERED: HYDROMORPHONE HC4 MG PO ×2 (11:16→13:24)
--- NOTE | 2020-01-02 12:09 | NUR ---
PT ARRIVES TO RM 3 FROM PACU AWAKE AND ALERT. PT RESP EVEN AND UNLABORED, ON 2L VIA NC SATS GREATER THAN 94%. PT STATES NO NAUSEA BUT RATES PAIN 8/10 IN SURGICAL SITE. PT WOULD LIKE TO TRY USING BED ESPINOZA AGAIN, PLACED UNDER BOTTOM. PT ABLE TO ASSIST IN LIFTING BOTTOM OFF OF BED, SPINAL AT APPROXIMATELY L3. PT PROVIDED JELLO AND ICED WATER, MEDICATED FOR PAIN; SEE EMAR. FAMILY IN RM AT BEDSIDE. CALL LIGHT WITHIN REACH.
--- NOTE | 2020-01-02 13:10 | NUR ---
PT RESTING IN BED WATCHING TV, RESP EVEN AND UNLABORED SATS GREATER THAN 94% ON 2L VIA NC. O2 REMOVED AT THIS TIME, PT ENCOURAGED TO TAKE DEEP BREATHS. CONT PULSE OXIMETER LEFT IN PLACE AND PT EDUCATED ABOUT THE ALARMS AND TO TAKE DEEP BREATHS. CARLIE LYNDONGGER ON WARM. PT TOLERATES ORAL, ICED WATER REFILLED. SPINAL HAS RESOLVED BACK TO BASELINE, PT STATES HAVING NEUROPATHY IN BLE AND STATES THEY FEEL "LIKE NORMAL AGAIN." PT ENCOURAGED TO USE CALL LIGHT WITH URGE TO VOID, CALL LIGHT WITHIN REACH. PAIN 2/10 AND "COMFORTABLE."
--- NOTE | 2020-01-02 14:40 | NUR ---
1440: PT HAS URGE TO VOID. ASSISTED TO SIDE OF BED PRIOR TO STANDING, DENIES NAUSEA OR DIZZINESS WITH POSITION CHANGE. PT AMBULATES TO BATHROOM WITH RN ASSIST AND USE OF PERSONAL CANE. PT ABLE TO VOID 400 MLS YELLOW URINE WITH BLOOD NOTED IN TOILET BOWL FROM SURGICAL SITE. PT BACK TO ROOM TO GET DRESSED. 1500: IV REMOVED WNL, TIP IN TACT. DC INSTRUCTIONS GIVEN IN PRESENCE OF PT AND SPOUSE, SUSHIL AT BEDSIDE. ALL QUESTIONS ADDRESSED. HARD COPY PAIN PRESCRIPTION PROVIDED TO PT IN DC FOLDER. PT DC'S VIA WC TO PERSONAL VEHICLE AT MAIN ENTRANCE OF HOSPITAL WITH SPOUSE HOME.
--- NOTE | 2020-01-04 09:13 | OR ---
[facility] [address] [place], [place] [address] Signed DATE OF OPERATION: 01/02/2020 SURGEON: Cristin Pennington MD PREOPERATIVE DIAGNOSIS: Symptomatic bleeding, painful, extensive grade 4 hemorrhoidal disease. POSTOPERATIVE DIAGNOSIS: Symptomatic bleeding, painful, extensive grade 4 hemorrhoidal disease. PROCEDURE: Extensive hemorrhoidectomy including internal and external hemorrhoidal disease. ANESTHESIA: Spinal with IV sedation (Cristin Flynn CRNA) and local 10 mL of 0.25% Marcaine with epinephrine. INDICATION: This 74-year-old white woman is a patient of Dr. Canales. She has type 2 diabetes and extensive internal and external hemorrhoidal changes. She has some perianal drainage related to the extensive grade 4 hemorrhoids bleeding from time to time when straining. She has never had hemorrhoidal thrombosis or hemorrhoidal surgery in the past. She does not strictly have fecal incontinence, but does have perianal hygiene problems related to the extensive hemorrhoids. She does admit to urinary control problems (urinary leakage). She has no family history of colon cancer or inflammatory bowel disease. Colonoscopy has shown no evidence of malignancy, but did affirm extensive internal and external hemorrhoidal changes. She is admitted at this time to undergo hemorrhoidectomy. She understands the risks of bleeding, infection, recurrence, and other unforeseen complications. FINDINGS: Extensive hemorrhoidal disease was noted indeed. Prolapsed grade 4 hemorrhoids were quite notable in the major sites (left lateral, right anterior, right posterior, as well as hemorrhoidal tissue elsewhere). All were excised completely. DESCRIPTION OF PROCEDURE: The patient was brought to the operating room after undergoing a spinal anesthetic. Preoperative antibiotic Ancef was given. Sequential compression device stockings used and heparin subcutaneously administered. In the prone jackknife position, the buttocks were taped apart. Photographs were taken of the extensive hemorrhoidal prolapsing Electronically Signed By: CRISTIN PENNINGTON MD 01/04/20 0913 PATIENT NAME: STEVIE HENLEY OPERATIVE REPORT DATE OF : 45 REPORT #: [id number] PHYSICIAN: CRISTIN PENNINGTON MD PCP: SAHIL CANALES MD REPORT IS CONFIDENTIAL AND NOT TO BE RELEASED WITHOUT AUTHORIZATION [facility] [address] [place], [place] [address] Signed disease. A rectal retractor was placed and liquid stool type effluent was suctioned free. Espinal clamps were applied to the major hemorrhoidal plexi. Using electrocautery, they were excised. The vascular pedicle well above the dentate line was secured with 2-0 chromic suture. Similar excision was undertaken for additional sites, right anterior, right posterior, left lateral, left anterior accessory, left posterior accessory, and right posterior accessory areas. Hemostasis was assured with electrocautery or 2-0 chromic suture. Mucosal reapproximation was undertaken with running 2-0 chromic allowing for drainage at the exit site as needed. A 10 mL of 0.25% Marcaine with epinephrine was injected locally. A Gel-Foam was rolled and covered, and bacitracin was applied to the anal canal as was a rebeca pad. Blood loss was approximately 25 mL in aggregate. Sponge, needle, and instrument counts reported as correct x3. Cristin Pennington MD JM/MODL /[id number] cc: Sahil Canales MD Copies: SAHIL CANALES MD ~ Electronically Signed By: CRISTIN PENNINGTON MD 01/04/20 0913 PATIENT NAME: STEVIE HENLEY [facility] OPERATIVE REPORT DATE OF : 45 REPORT #: [id number] PHYSICIAN: CRISTIN PENNINGTON MD PCP: SAHIL CANALES MD REPORT IS CONFIDENTIAL AND NOT TO BE RELEASED WITHOUT AUTHORIZATION
--- NOTE | 2020-01-06 10:40 | PATH ---
[facility] [address] [place], [place] [address] Signed SPECIMEN(S): A RIGHT ANTERIOR COMPLEX SPECIMEN(S): B LEFT LATERAL COMPLEX SPECIMEN(S): C LEFT ANTERIOR ACCESSORY COMPLEX SPECIMEN(S): D LEFT POSTERIOR ACCESSORY COMPLEX SPECIMEN(S): E RIGHT POSTERIOR ACCESSORY COMPLEX SPECIMEN SOURCE: A. RIGHT ANTERIOR COMPLEX B. LEFT LATERAL COMPLEX C. LEFT ANTERIOR ACCESSORY COMPLEX D. LEFT POSTERIOR ACCESSORY COMPLEX E. RIGHT POSTERIOR ACCESSORY COMPLEX CLINICAL HISTORY: Pre: Hemorrhoids. Post: Hemorrhoidectomy. FINAL PATHOLOGIC DIAGNOSIS: A. Anorectal tissue, right anterior hemorrhoidal complex, hemorrhoidectomy: - Consistent with hemorrhoids. B. Anorectal tissue, left lateral complex hemorrhoid, hemorrhoidectomy: - Consistent with hemorrhoids. C. Anorectal tissue, left anterior accessory hemorrhoidal complex, hemorrhoidectomy: - Consistent with hemorrhoids. D. Anorectal tissue, left posterior accessory hemorrhoidal complex, hemorrhoidectomy: - Consistent with hemorrhoids. E. Anorectal tissue, right posterior accessory hemorrhoidal complex, hemorrhoidectomy: - Consistent with hemorrhoids. COMMENT: All sections are negative for atypia and malignancy. LJA:cml:C2NR MICROSCOPIC EXAMINATION: Histologic sections of all submitted blocks are examined by light microscopy. These findings, together with the gross examination, support the pathologic diagnosis. GROSS DESCRIPTION: PATIENT NAME: STEVIE HENLEY [facility] PATHOLOGY DATE OF : 45 REPORT #: [id number] PHYSICIAN: AMIE SARAVIA PCP: SAHIL CANALES MD REPORT IS CONFIDENTIAL AND NOT TO BE RELEASED WITHOUT AUTHORIZATION [facility] [address] [place], [place] [address] Signed Five specimens are received in five containers, labeled "PM." A. The specimen, labeled "PM, A" and "right anterior complex hemorrhoid" on the requisition, is received in formalin and consists of a 3.2 x 2.6 x 1.7 cm rubbery daigle wrinkled dome-shaped portion of epithelial tissue. The surgical margin is marked with blue ink. The cut surfaces demonstrate multiple underlying dilated blood-filled vessels and no masses. A lead generation representative section is submitted in cassette A1. B. The specimen, labeled "PM, B" and "left lateral complex hemorrhoid" on the requisition, is received in formalin and consists of a 3.2 x 3 x 1.6 cm rubbery la to red wrinkled dome-shaped portion of epithelial tissue. The surgical margin is marked with blue ink. The cut surfaces demonstrate multiple underlying dilated blood-filled vessels and no masses. A lead generation representative section is submitted in cassette B1. C. The specimen, labeled "PM, C" and "left anterior accessory hemorrhoid complex," is received in formalin and consists of a 2.2 x 1.3 x 0.8 cm rubbery daigle wrinkled dome-shaped portion of epithelial tissue. The surgical margin is marked with blue ink. The cut surfaces demonstrate multiple underlying dilated blood-filled vessels and no masses. Air Motor Repairer sections are submitted in cassette C1. D. The specimen, labeled "PM, D" and "left posterior accessory hemorrhoidal complex," is received in formalin and consists of a 1.8 x 1.6 x 1.1 cm rubbery daigle to red wrinkled dome-shaped portion of epithelial tissue that is marked with blue ink. The cut surfaces demonstrate multiple underlying dilated blood-filled vessels and no masses. Air Motor Repairer sections are submitted in cassette D1. E. The specimen, labeled "PM, E" and "right posterior accessory hemorrhoidal complex," is received in formalin and consists of a 1.8 x 1.2 x 1 cm rubbery daigle wrinkled dome-shaped portion of epithelial tissue that is marked with blue ink. The cut surfaces demonstrate occasional blood-filled vessels and no masses. The specimen is trisected and entirely submitted in cassette E1. (SS under direct superficial of a pathologist) The Gross Description was prepared using a voice recognition system. The report was reviewed for accuracy; however, sound-alike word errors, addition and/or deletions may occur. If there is any question about this report, please contact Client Services. PATIENT NAME: STEVIE HENLEY PATHOLOGY DATE OF : 45 REPORT #: [id number] PHYSICIAN: AMIE SARAVIA PCP: SAHIL CANALES MD REPORT IS CONFIDENTIAL AND NOT TO BE RELEASED WITHOUT AUTHORIZATION [facility] [address] [place], [place] [address] Signed PERFORMING LABORATORY: The technical component was performed by [employer], [address] [place] [id number] (Separations Scientist: Kanwal Laguna MD; CLIA# [id number]). [facility], [address] [facility], [facility]. [address] [place] [address] (IA# [id number]). Diagnostician: Angel Funez MD Pathologist Electronically Signed 01/06/2020 Copies: ~ PATIENT NAME: STEVIE HENLEY [facility] PATHOLOGY DATE OF : 45 REPORT #: [id number] PHYSICIAN: AMIE PATHOLOGY PCP: SAHIL CANALES MD REPORT IS CONFIDENTIAL AND NOT TO BE RELEASED WITHOUT AUTHORIZATION
== END 2020-01-02 15:05 | disposition home or self-care (01) ==
LOC: DS 08:00
PROVIDERS: Surgery
PROC: 06BY0ZC Excision of Hemorrhoidal Plexus, Open Approach (ICD-10-PCS; principal; 2020-01-02 08:45)
DX: K64.3 Fourth degree hemorrhoids (principal); E11.9 Type 2 diabetes mellitus without complications; I10 Essential (primary) hypertension; G47.30 Sleep apnea, unspecified; I70.0 Atherosclerosis of aorta; G47.33 Obstructive sleep apnea (adult) (pediatric); E66.9 Obesity, unspecified; F32.9 Major depressive disorder, single episode, unspecified; F40.240 Claustrophobia; I70.8 Atherosclerosis of other arteries; Z79.82 Long term (current) use of aspirin; Z79.899 Other long term (current) drug therapy; Z91.048 Other nonmedicinal substance allergy status; Z90.711 Acquired absence of uterus with remaining cervical stump; Z79.02 Long term (current) use of antithrombotics/antiplatelets; Z68.30 Body mass index [BMI] 30.0-30.9, adult; Z79.51 Long term (current) use of inhaled steroids; Z79.84 Long term (current) use of oral hypoglycemic drugs
CPT/HCPCS: 00902; J0690; J1100; J1885; J2001; J2250; J2405; J2704; J3010; J7121

== ENCOUNTER 2021-02-04 09:56 | Emergency (ER) | payer MEDICARE, OTHER ==
[~2021-02-04] VITALS: Ht 160 cm; Wt 77.1 kg
[~2021-02-04 09:56] MED LIST changes: +DILTIAZEM HCL10 GM TOP; +HYDROMORPHONE HC4 MG PO; +IBUPROFEN600 MG PO; +TYLENOL EXTRA500 MG PO
--- NOTE | 2021-02-04 13:10 | EKG ---
[facility] [address] [facility] [place], [place] [address] Signed Atrial fibrillation Abnormal ECG When compared with ECG of 30-DEC-2019 16:52, Atrial fibrillation has replaced Sinus rhythm Confirmed by ARETHA SAN MD ([id number]) on 02/04/2021 1:10:03 PM Electronically Signed By: ARETHA SAN MD 02/04/21 1310 PATIENT NAME: STEVIE HENLEY JACK Electrocardiogram DATE OF : 45 PHYSICIAN: ARETHA SAN MD REPORT #: [id number] REPORT IS CONFIDENTIAL AND NOT TO BE RELEASED WITHOUT AUTHORIZATION
== END 2021-02-04 13:58 | disposition home or self-care (01) ==
LOC: ED 09:56
DX: I48.91 Unspecified atrial fibrillation (principal); R73.03 Prediabetes; Z20.822 Contact with and (suspected) exposure to COVID-19; I10 Essential (primary) hypertension; Z87.891 Personal history of nicotine dependence; Z88.2 Allergy status to sulfonamides; Z88.8 Allergy status to other drugs, medicaments and biological substances; Z79.899 Other long term (current) drug therapy; Z79.84 Long term (current) use of oral hypoglycemic drugs; Z79.82 Long term (current) use of aspirin
CPT/HCPCS: 71045; 80053; 83735; 84484; 85025; 93005; 93010; 99285-25; C9803; U0003

== ENCOUNTER 2022-02-22 14:30 | Emergency (ER) | payer MEDICARE ==
[~2022-02-22] VITALS: Ht 160 cm; Wt 77.1 kg
--- OUTSIDE RECORDS SUMMARY | 2022-02-22 14:32 | XMS ---
PreManage Notification: STEVIE HENLEY [employer] Events No recent Security Events currently on file CRITERIA MET - [facility] - 2 Visits in 30 Days CARE PROVIDERS There are no care providers on record at this time. David has no Care Guidelines for this patient. S[facility] V[facility] COUNT (12 MO.) [facility] NOTE: Visits indicate total known visits. ED/[facility] VISIT TRACKING (12 MO.) 02/22/2022 14:31 [facility]: Emergency COMPLAINT: - UNABLE TO WALK, DIZZINESS 02/16/2022 12:17 GLORIA Garcia [place] TYPE: Emergency COMPLAINT: - FALL, DIZZINESS AFTER BUMP ON HEAD INPATIENT VISIT TRACKING (12 MO.) No inpatient visits to display in this time frame [email or web address]
[2022-02-22] MEDS ORDERED: ELIQUIS2.5 MG PO (17:18)
[2022-02-22] MEDS ORDERED: CEPHALEXIN500 MG PO (19:13)
== END 2022-02-22 19:42 | disposition home or self-care (01) ==
LOC: ED 14:30
DX: N39.0 Urinary tract infection, site not specified (principal); R42 Dizziness and giddiness; I10 Essential (primary) hypertension; Z87.891 Personal history of nicotine dependence; Z88.2 Allergy status to sulfonamides; Z88.8 Allergy status to other drugs, medicaments and biological substances; Z79.899 Other long term (current) drug therapy; Z79.84 Long term (current) use of oral hypoglycemic drugs
CPT/HCPCS: 70450; 81001; 99284-25; A9270

== ENCOUNTER 2023-03-06 09:01 | Inpatient (IN) | payer MEDICARE, OTHER ==
[~2023-03-06] VITALS: Ht 160 cm; Wt 84.9 kg
--- NOTE | ~2023-03-06 | DS ---
[facility] [address] [place], [place] [address] Draft ADMISSION DATE: 03/06/2023 DISCHARGE DATE: 03/10/2023 Discharged on 03/10 from [facility]. HISTORY OF PRESENT ILLNESS: The patient was admitted on March 06 after having surgery on March 01 with a colpocleisis. Postoperatively, she had some initial confusion as well as some significant deconditioning which was limiting her ability to be mobile. She met all criteria for discharge, otherwise by March 06 and it was felt that she required rehab for her ongoing deconditioning. Initially, it was felt that she could be transferred to [place] for her rehab. However, there was no staffing available and she was admitted to swing bed at [place] instead. Since her admission to [facility], she has been undergoing daily PT as well as OT. She has become progressively stronger and is ambulatory using her walker. It is felt from the standpoint of OT and PT that she is stable and safe for discharge at this point. We will discharge her home with home health consult. She is to continue her usual medications. Light activity only and to follow up in the office in approximately 10 days. MD LEONEL Garces/SHERICE /[id number] Copies: ~ PATIENT NAME: STEVIE HENLEY DISCHARGE SUMMARY DATE OF : 45 REPORT #: [id number] PHYSICIAN: BINU TEJEDA MD PCP: CARLTON BOONE MD REPORT IS CONFIDENTIAL AND NOT TO BE RELEASED WITHOUT AUTHORIZATION
[~2023-03-06 09:01] MED LIST changes: +CEPHALEXIN500 MG PO; +ELIQUIS2.5 MG PO; +ELIQUIS5 MG PO; +K-TAB10 MEQ PO; +METOPROLOL SUCC25 MG PO; +OLOPATADINE HCL5 ML OU
--- NOTE | 2023-03-06 10:06 | NUR ---
MED REC COMPLETE
--- NOTE | 2023-03-06 10:30 | NUR ---
PT TRANSITIONED INTO TRANSITIONAL CARE PROGRAM. ADMISSION ASSESSMENT AND INTAKE DONE. PT PARTICIPATES WITH ANSWERING QUESTIONS AND IS EXCITED FOR REHAB. PT STATES HER GOAL IS TO "GO HOME AND GET ARROUND WELL." PTS HOME CANE AT BEDSIDE WHICH SHE HAS BEEN USING AT HOME "BECAUSE THERE IS NOT ENOUGH SPACE FOR TWO WALKERS." PT ALERAT AND ORIENTED TO ALL. PT IS ABLE TO PERFORM HIGHER LEVEL TASKS SUCH ADDITION. PT IS FORGETFUL AT TIMES BUT IS BEOMING MORE CONSISTANT WITH USING THE CALL LIGHT. PT REPORTS BASELINE NEUROPATHY. LUNG SOUNDS CLEAR. HEART TONES IRREGULAR PER BASELINE. ABDOMEN SOFT AND NON TEDNER. NO REDNESS NOTED UNDER PANNUS OR BREASTS. SCANT PINK/BROWN DRAINAGE NOTED ON JENNIFER PAD FROM PROCEEDURE. RASH TO BACK OF LEFT SHOULDER UNCHANGED FROM PRIOR ADMISSION, MD AWARE. NO ADDITIONAL NEEDS AT THIS TIME. PT VERBALIZES UNDERSATNDING OF PLAN OF CARE. CALL LIGHT WITHIN REACH. CHAIR ALARM ON.
[2023-03-06 10:32] VITALS: BP 148/91
--- NOTE | 2023-03-06 11:42 | NUR ---
THIS RN TO ROOM TO CHECK ON PT. PT UP AND WORKING WITH PHYSICAL THERAPY. PT SMILING AND REPORTS SHE IS HAPPY TO BE "GETTING STRONGER." PT DENIES PAIN AND NAUSEA. NO ADDITIONAL REQUSETS OR COMPLAINTS AT THIS TIME.
--- NOTE | 2023-03-06 12:20 | NUR ---
THIS RN TO ROOM TO CHECK ON PT. PT RESTING IN CHAIR WITH EYES CLOSED, RESPIRATIONS EVEN AND UNLABORED. CALL LIGHT WITHIN REACH. CHAIR ALARM ON.
--- NOTE | 2023-03-06 13:11 | NUR ---
PT CALL LIGHT ON. PT REQUESTS ASSISTANCE UP TO RESTROOM. STAND BY ASSIST WITH FWW UP TO RESTROOM. PT VOIDS 300ML AND HAS SOFT BROWN BOWEL MOVEMENT. JENNIFER CARE PER PT. STAND BY ASSIST BACK TO CHAIR. PT DENIES ADDITIONAL REQUSTS OR COMPLAINTS. CALL LIGHT WITHIN REACH. CHAIR ALARM ON.
--- NOTE | 2023-03-06 14:47 | NUR ---
THIS RN TO ROOM TO CHECK ON PT. PT SITTING ON EDGE OF BED, VISITING WITH FAMILY. FAMILY UPDATED PER PT REQUEST. PT DENIES PAIN AND NAUSEA. NO ADDIITONAL REQUESTS OR COMPLAINTS. CALL LIGHT WITHIN REACH. BED ALARM ON.
--- NOTE | 2023-03-06 15:44 | NUR ---
HOURLY ROUNDING: PT RESTING IN BED WITH EYES CLOSED, RESPIRATION EVEN AND UNLABORED. BED RAILS UP. CALL LIGHT WITHIN REACH. BED ALARM ON. PT ALLOWED TO REST.
--- NOTE | 2023-03-06 16:40 | NUR ---
THIS RN TO ROOM TO CHECK ON PT. PT UP TO CHAIR, DINNER DELIVERED. PT TALKING ABOUT HER VISIT WITH HER FAMILY AND THEN ASKS TO BE PUT ON THE LIST FOR "ALL YOU CAN EAT SHRIMP TOMORROW." PT ADVISED THAT THIS IS NOT A HOSPITAL SPECIAL. PT STATES "OH, OK, I THOUGHT YOU WERE TALKING ABOUT IT." PT ADVISED THAT IT WAS PROBABLY HER FAMILY TALKING ABOUT IT. PT ENCORUAGED TO ASK FAMILY TO BRING HER THE FOOD SHE WOULD LIKE TOMOROW. PT DENIES PAIN AND NAUSEA. NO ADDITIONAL REQUESTS OR COMPLAINTS. CALL LIGHT WITHIN REACH. CHAIR ALARM ON.
--- NOTE | 2023-03-06 17:12 | NUR ---
PT POST OP DAY 4 AFTER COLPODEISIS AND CYSTOSCOPY. PT TRANSISTIONED TO TRANSITIONAL CARE PROGRAM THIS SHIFT. PT UP WITH SBA AND FWW TO CHAIR AND WITH PHYSICAL THERAPY THIS SHIFT. PT DENIES PAIN THIS SHIFT. PT TOELRATING 60G CARB DIET WITH GOOD INTAKE. SCANT RED DRAINAGE FROM JENNIFER AREA THIS SHIFT. FAMILY AT BEDSIDE ON AND OFF THROUGHOUT SHIFT. PT VOIDING QUANTITY SUFFICIENT. NO IV IN PLACE, MD AWARE. PT OREINTED TO ALL BUT FORGETFUL AT TIMES. PT USES CALL LIGHT INTERMITTANTLY, BED/CHAIR ALARM FOR SAFETY. PT PERFORMING HER OWN JENNIFER CARE. PT CONTINANT OF BOTH BOWEL AND STOOL. PT ABLE TO ORDER HER OWN FOOD AND FEED SELF. PT DRESSED IN CLOTHES THIS SHIFT, NEEDS 1 PERSON ASSIST TO GET DRESSED.
--- NOTE | 2023-03-06 17:30 | NUR ---
THIS RN TO ROOM TO CHECK ON PT. PT TAKLING ON THE PHONE WITH FAMILY. PT DENIES REQUESTS OR COMPLAINTS. CALL LIGHT WITHIN REACH. CHAIR ALARM ON.
--- NOTE | 2023-03-06 18:23 | NUR ---
THIS RN TO ROOM TO CHECK ON PT. PT REPORTS SHE ENJOIED DINNER. PT DENIES PAIN OR NAUSEA. PT STATES SHE WONDERS IF SHE FEELS OFF BALANCE BECAUSE OF HER HEARTING. PT STATES SHE HAS AN APPOINTMENT ON February FOR A HEARING AID FITTING. PT STATES SHE FEELS STABLE EXCEPT FOR WHEN SHE IS ASKED TO STAND ON ONE LEG "LIKE WHEN I HAVE TO GO DOWN THE STAIRS." PT STATES "I THINK IT HAS SOMETHING TO DO WITH MY HEARING AND THE HEARING AIDS MIGHT HELP." PT ENCOURGED TO DISCUSS THIS WITH MD AND WITH PHYSICAL THERAPY TOMORROW. CHARGE NURSE UPDATED. NO ADDITIONAL REQUESTS OR COMPLAINTS. CALL LIGHT WITHIN REACH. BED RAILS UP.
--- NOTE | 2023-03-06 19:08 | NUR ---
SHIFT REPORT RECEIVED FROM TANA YEPEZ, PT ALERT AND ORIENTED, UP IN CHAIR, DISCUSSED PLAN OF CARE, PT WITHOUT COMPLAINTS.
[2023-03-06 21:35] VITALS: BP 131/84
--- NOTE | 2023-03-06 21:35 | NUR ---
PT RESTING QUIETLY WITH EYES CLOSED, STARTLED WHEN AWAKEN, PT IS ALERT WHEN AWAKE, VS AND ASSESSMENT DONE, RT MEDS GIVEN EXCEPT PT DECLINES [place], PT DENIES PAIN AT THIS TIME, PT READY FOR SLEEP, RESTING QUIETLY.
--- NOTE | 2023-03-06 22:40 | NUR ---
PT ASLEEP, RESP EVEN AND REG, LAYING ON HER SIDE, WITHOUT DISTRESS.
--- NOTE | 2023-03-06 23:35 | NUR ---
PT CONTINUES TO SLEEP, RESP APPEAR REG, PT WITHOUT DISTRESS.
--- NOTE | 2023-03-07 01:30 | NUR ---
PT CONTINUES TO SLEEP, RESP EVEN AND REG.
--- NOTE | 2023-03-07 03:35 | NUR ---
PT AWAKE, LAYING IN BED, ASSISTED UP TO BR PER REQUEST, PT STATES SHE DID GET UP EARILIER ON HER OWN TO VOID, STATING SHE WAS WORRIED THE NURSES WERE BUSY AND SHE DIDN'T WANT TO BOTHER THEM, IMPORTANCE OF CALLING RN DISCUSSED, BACK TO BED, PT WITHOUT COMPLAINTS, JUICE GIVEN PER REQUEST, BED ALARM PLACED ON PT AND PT UPDATED ABOUT THIS.
--- NOTE | 2023-03-07 04:45 | NUR ---
PT ASLEEP, RESP EVEN AND REG.
--- NOTE | 2023-03-07 06:46 | NUR ---
PT ASLEEP, RESP EVEN AND REG.
--- NOTE | 2023-03-07 07:15 | NUR ---
REPORT RECEIVED FROM MARLENI BURGOS. PT RESTING IN BED ON RIGHT SIDE, AWAKE AND ALERT. PT REQUESTS TEA, PROVIDED. PT DENIES PAIN AND NAUSEA. PT REMINDED TO USE CALL LIGHT WHEN SHE IS READY TO GET UP. BED ALARM ON. NO ADDITIONAL REQUESTS OR COMPLAINTS. CALL LIGHT WITHIN REACH. BED RAILS UP.
--- NOTE | 2023-03-07 07:33 | NUR ---
MORNING ASSESSMENT AND MEDICATION DUE. PT REPORTS SHE IS READY TO GET UP FOR BREAKFAST. STAND BY ASSIST WITH FWW UP TO CHAIR. 1 PERSON ASSIST TO PUT ON SHOES. PT DENIES NEED TO USE THE RESTROOM AT THIS TIME. PT DENIES PAIN AND NASUEA. PT ALERT AND OREINTED TO ALL AND IS EVEN MAREN TO STATE EXACT DATE AND DAY OF THE WEEK. PT RECALLS EVENTS FROM YESTERDAY AND REMEMBERS THAT SHE WOULD LIKE TO TALK WITH PHYSICAL THERAPY ABOUT HER EARS, HEARING AND BALANCE. LUNG SOUNDS CLEAR. HEAR TONES IRREGULAR PER PTS BASELINE. VERY SCANT RED/BROWN DRAINAGE NOTED ON JENNIFER PAD. ABDOMEN SOFT AND NON TENDER. RASH TO BACK OF LEFT SHOULDER UNCHANGED. PT REMAINS UP TO CHAIR. READING BOOK AND WATCHING TV. NO ADDITIONAL REQUESTS OR COMPLAINTS. MEDICATIONS GIVEN. CALL LIGHT WITHIN REACH. CHAIR ALARM ON.
[2023-03-07 07:34] VITALS: BP 140/82
--- NOTE | 2023-03-07 09:44 | NUR ---
HOURLY ROUNDING: PT RESTING IN BED, WATCHING TV. PT DENIES PAIN AND NAUSE. NO REQUESTS OR COMPLAINTS. CALL LIGHT WITHIN REACH. BED RAILS UP.
--- NOTE | 2023-03-07 10:34 | NUR ---
HOURLY ROUNDING: PT RESTING IN BED WATCHING TV AND "WAITING FOR PHYSICAL THERAPY." PT DENIES PAIN AND NAUSEA. NO ADDITIONAL REQUESTS OR COMPLAINTS. CALL LIGHT WITHIN REACH. BED RAILS UP.
--- NOTE | 2023-03-07 11:34 | NUR ---
HOURLY ROUNDING. PT COMING BACK FROM WORKING WITH PHYSICAL THERAPY. PT UPDATED ON OCCPATIONAL THERAPY. PT DENIES PAIN AND NAUSEA. NO REQUESTS OR COMPLAINTS. CALL LIGHT WITHIN REACH.
--- NOTE | 2023-03-07 12:15 | NUR ---
HOURLY ROUNDING: LUNCH DELIVERED TO PT. PT DENIES ADDITIONAL REQUESTS OR COMPLANTS. REMAINS UP TO CHAIR. REPORTS PHYSICAL THERAPY "WENT REALLY WELL." CALL LIGHT WITHIN REACH. PT USING CALL LIGHT TODAY.
--- NOTE | 2023-03-07 13:25 | NUR ---
SPOKE TO PATIENT ABOUT THE DISCHARGE PLAN OF CARE. PATIENT PLANS TO GO HOME. IN THE FUTURE PATIENT MAY MOVE TO [facility] WITH HER . PATIENT WORKED WITH PT TODAY AND SAYS THINGS WENT WELL. PATIENT WOULD LIKE TO GO HOME SOON. PATIENT CAN NOT THINK OF ANYTHING BATCH TRUCKER CAN HELP WITH AT THIS TIME.
--- NOTE | 2023-03-07 14:24 | NUR ---
THIS RN TO ROOM TO CHECK ON PT. PT RESTING WITH EYES CLOSED, UP TO CHAIR, RESPIRATIONS EVEN AND UNLABORED. PT ALLOWED TO REST. CALL LIGHT WITHIN REACH. CHAIR ALARM ON.
--- NOTE | 2023-03-07 15:25 | NUR ---
HOURLY ROUNDING: PT VISITING WITH FRIEND, PT DENIES PAIN AND NAUSEA. NO REQUESTS OR COMPLAINTS. CALL LIGHT WITHIN REACH. BED RAILS UP.
--- NOTE | 2023-03-07 15:30 | NUR ---
PATIENT HERE IN THE TRANSITIONAL CARE PROGRAM. SHE HOPES TO GO HOME SOON. SHE IS ON A 60 GM CONSISTENT CARB DIET. PREFERENCES FOR HER BREAKFAST TAKEN. SHE DOES NOT WANT ANY SCRAMBLED EGGS OR OMELETS. HER APPETITE IS IMPROVING - SHE HAD SURGERY LAST MONDAY. NO CHEWING OR SWALLOWING PROBLEMS. NO MILK (ALREADY IN [employer]). LIKES COFFEE. NO OTHER NUTRITION INTERVENTION NEEDED AT THIS TIME. EXPLAINED HOW OUR MENU WORKS. SHE HAS NO QUESTIONS OR CONCERNS AT THIS TIME. WILL REMAIN AVAILABLE IF NEEDED.
--- NOTE | 2023-03-07 18:24 | NUR ---
THIS RN TO ROOM TO CHECK ON PT. PT REQUESTS ASSISTANCE UP TO RESTROOM. CONTACT GUARD ASSIST UP TO RESTROOM. PT VOIDS WITHOUT ISSUE. JENNIFER CARE DONE BY PT. PT NEEDS NO ASSISTANCE WITH PANTS OR UNDERWARE. CONTACT GUARD ASSIST WITH FWW BACK TO BED. PT DENEIS PAIN OR NAUSEA. NO ADDIITONAL REQUESTS OR COMPLAINTS. CALL LIGHT WITHIN REACH. BED ALARM ON.
--- NOTE | 2023-03-07 18:46 | NUR ---
PT POST OP DAY 5 AFTER COLPODEISIS AND CYSTOSCOPY. PT REMAINS IN TRANSITIONAL CARE PROGRAM. PT UP WITH SBA AND FWW TO CHAIR AND WITH PHYSICAL THERAPY THIS SHIFT. OCCPATIONAL THERAPY ADDED. PT TOELRATING 60G CARB DIET WITH GOOD INTAKE. PRN TYLENOL GIVEN X1 FOR 4/10 "SURGICAL AREA" PAIN. SCANT RED DRAINAGE FROM JENNIFER AREA THIS SHIFT. PT VOIDING QUANTITY SUFFICIENT. PT OREINTED TO ALL BUT FORGETFUL AT TIMES, OCCATIONALLY GETTING UP ON HER OWN. PT USES CALL LIGHT INTERMITTANTLY, BED/CHAIR ALARM FOR SAFETY. PT PERFORMING HER OWN JENNIFER CARE. PT CONTINANT OF BOTH BOWEL AND STOOL. PT ABLE TO ORDER HER OWN FOOD AND FEED SELF. PT DRESSED IN CLOTHES THIS SHIFT, NEEDS 1 PERSON ASSIST TO GET DRESSED AND PUT ON SHOES. OCCPUATIONAL THERAPY EVALUATING. PT VOIDING QUANITTY SUFFICIENT.
--- NOTE | 2023-03-07 19:34 | NUR ---
REPORT RECEIVED FROM DAY SHIFT RN. PT LYING IN BED ALERT AND ORIENTED. DENIES NEEDS. WHITE BOARD UPDATED. CALL LIGHT IN REACH. BED ALARM FOR SAFETY.
[2023-03-07 20:29] VITALS: BP 124/72
--- NOTE | 2023-03-07 20:44 | NUR ---
EVENING ASSESSMENT COMPLETE. SCHEDULED MEDS ADMIN PER EMAR. PT DENIES PAIN OR NAUSEA. UP TO BR WITH FWW AND SBA TO ATTEMPT TO VOID WITH NO RESULTS. JENNIFER PAD WITH SCANT AMOUNT BROWN DRAINAGE. CLEAN PAD PROVIDED. BACK TO BED, LUIS ALBERTO WELL. GAIT STEADY. PT DENIES QUESTIONS OR CONCERNS. CALL LIGHT IN REACH.
--- NOTE | 2023-03-07 21:55 | NUR ---
CALL LIGHT ANSWERED. SBA TO BATHROOM AND BACK IN BED USING WALKER. BED ALARM ON. DENIES FURTHER NEEDS AT THIS TIME.
--- NOTE | 2023-03-08 00:58 | NUR ---
PT RESTING IN BED WITH EYES CLOSED LYING ON RIGHT SIDE. RESPIRATIONS EVEN. BED ALARM IN PLACE. CALL LIGHT IN REACH.
--- NOTE | 2023-03-08 01:43 | NUR ---
CALL LIGHT ANSWERED. PT UP TO BR WITH FWW AND SBA TO VOID 800 ML CLEAR YELLOW URINE. BACK TO BED, LUIS ALBERTO WELL. NO FURTHER NEEDS. BED ALARM ON. CALL LIGHT IN REACH.
--- NOTE | 2023-03-08 06:49 | NUR ---
PT AWAKE IN BED WATCHING TV. COFFEE AND FRESH WATER PROVIDED. NO FURTHER NEEDS. BED ALARM FOR SAFETY.
--- NOTE | 2023-03-08 08:00 | NUR ---
REPORT RECEIVED FROM NIGHT RN AND PT CARE RESUMED. PT. IS ALERT AND ORIENTED TO ALL. UP IN THE CHAIR READING. MEDS ADMIN AND ASSESSMENT COMPLETED. PT. ASSISTED WITH BREAKFAST. LEFT RESTING IWTH CALL LIGHT IN REACH AND ALARM ON.
--- NOTE | 2023-03-08 10:49 | NUR ---
PT. IS AMBULATING AROUND THE UNIT WITH PT. STATES SHE FEELS WELL
--- NOTE | 2023-03-08 11:13 | NUR ---
PT ALERT, ORIENTED, DRESSED AND SITTING IN CHAIR READING. PT IS PLEASANT, IS FEELING BETTER. MISSES G.KIDS ACTIVITIES-GOAL IS TO GET WELL ENOUGH TO WATCH THEM PLAY! GAVE ENCOURAGEMENT, WILL FOLLOW
--- NOTE | 2023-03-08 11:35 | NUR ---
PATIENT IS SITTING IN A RECLINER READING. PATIENT FEELS THOUGH HER STRENGTH IS GETTING BETTER EACH DAY. PATIENT IS HOPING TO GO HOME TO HER HOUSE THIS WEEKEND. PATIENT DOES COOKING,CLEANING AND LAUNDRY. PATIENT STATES SHE IS CLOSE TO HAVING THE STRENGTH TO DO THESE DAILY CHORES. PATIENT STATES SHE DOES NEED DISCHARGE MANAGEMENTS HELP AT THIS TIME. PATIENT ENCOURAGED TO CONTACT CASE MANAGEMENT IF THINGS CHANGE.
--- NOTE | 2023-03-08 13:21 | NUR ---
ROUNDING ON PT. PT. IS RESTING UPRIGHT IN BED WITH EYES CLOSED AND RESPIRATIONS EVEN AND UNLABORED. CALL LIGHT IN REACH.
--- NOTE | 2023-03-08 14:00 | NUR ---
ROUNDING ON PT. SHE IS RESTING IN BED WATCHING TV. BROUGHT DIET SODA. DENIES FURTHER REACH. CALL LIGHT IN REACH.
--- NOTE | 2023-03-08 14:37 | NUR ---
PT REQUESTED ASSISTANCE AND WAS HELPED WITH CHANGING WATER IN FLOWER ARRANGEMENTS. NO FURTHER NEEDS AND CALL LIGHT IN REACH.
--- NOTE | 2023-03-08 18:36 | NUR ---
PT. ASSISTED TO BATHROOM WITH FWW AND CALL LIGHT IN REACH.
--- NOTE | 2023-03-08 19:10 | NUR ---
shift report received from dayshift rn francisco at bedside, pt awake and resting in bed. bed alarm placed for safety and call light and personal belongings in place. no needs or concerns verbalized.
[2023-03-08 21:29] VITALS: BP 109/83
--- NOTE | 2023-03-08 21:30 | NUR ---
ASSESSMENT COMPLETE, SCHEDULED MEDS GIVEN-SEE EMAR. pt REPORTS PAIN IN BLE R/T CHRONIC NEUROPATHY 05/29. pt A/OX4, DENIES NAUSEA. NO IV SITE. SCANT OLD BLEEDING NOTED ON PERIPAD, WILL MONITOR FOR CHANGES. CALL LIGHT IN REACH, BED ALARM ON. pt DENIES NEED TO VOID AT THIS TIME. VSS.
--- NOTE | 2023-03-08 23:33 | NUR ---
pt RESTING IN BED, IN PRONE POSITION. NO DISTRESS NOTED, RR EVEN AND UNLABORED. ON RA. BED ALARM ON AND CALL LIGHT IN REACH.
--- NOTE | 2023-03-09 01:05 | NUR ---
pt resting in bed, on ra. rr even and unlabored. no distress noted. call light in reach and bed alarm on for safety.
--- NOTE | 2023-03-09 01:45 | NUR ---
ROUNDED ON pt, pt UP SBA WITH FWW TO VOID AND BACK TO BED-STEADY ON FEET. BED ALARM RESUMED AND CALL LIGHT IN REACH. 400MLS OUTPUT NOTED, pt REPORTS HER LAST VOID WAS RECENTLY BEFORE THIS RN ARRIVED TO FLOOR FOR SHIFT. NEW JENNIFER PAD IN PLACE FOR HYGIENE, NO NEW BLEEDING NOTED TO PAD. BOARD UPDATED, NO ADDITIONAL NEEDS OR CONCERNS VERBALIZED BY pt WHEN ASKED/OFFERED.
--- NOTE | 2023-03-09 04:11 | NUR ---
pt RESTING IN BED, ON BACK WITH HOB SLIGHTLY ELEVATED. NO DISTRESS NOTED, RR EVEN AND UNLABORED. BED ALARM ON FOR SAFETY AND CALL LIGHT IN REACH.
--- NOTE | 2023-03-09 07:52 | HP ---
[facility] [address], [place] [address] Signed ADMISSION DATE: 03/06/2023 HISTORY OF PRESENT ILLNESS: The patient is a 77-year-old female who was admitted on March 01 for colpocleisis for her diagnosis of vaginal prolapse. Following her surgery surgically, she was doing quite well, but she initially had quite a bit of issues with confusion which did seem to gradually clear. She was also having significant difficulty with ambulation. She initially required two person assist and was barely able to move though she did improve with time as well as physical therapy. Despite her improvement, she was not felt able to be discharged home without further rehab given her deconditioning in the hospital. Her current diagnoses are hypertension, atrial fibrillation, rate controlled chronic anticoagulation secondary to her atrial fibrillation, peripheral arterial disease, type 2 diabetes controlled with diet alone in the hospital, nonfunctioning left kidney, obstructive sleep apnea, hyperlipidemia, major depression, and lichen sclerosis. ALLERGIES: Osteoarthritis. Her additional diagnoses during her original hospitalization also include deconditioning as well and the need for ongoing physical therapy. She also became anemic following her surgery, though she has tolerated this well. MEDICATIONS: Multivitamin, potassium 10 mEq one b.i.d., Eliquis 5 mg b.i.d., rosuvastatin 10 mg once daily, gabapentin 300 mg in the morning, 600 mg at bedtime, vitamin D 1000 units daily, fluoxetine 60 mg daily, Singulair 10 mg daily, Olopatadine eyedrops one drop b.i.d., Plavix 75 mg once daily, metoprolol 25 mg once daily, Ocuvite one tab daily, fluticasone two sprays each nostril once a day, furosemide 40 mg daily and fexofenadine 180 mg once daily. IMPRESSION: The deconditioning, which is her current diagnosis leading to her admission to swing bed was felt to be readily amenable to ongoing physical therapy to allow her to return home and be fairly independent. PLAN: Admit to swing bed. Continue current medications. Physical therapy b.i.d. Anushka Leon MD Electronically Signed By: ANUSHKA LEON MD 03/09/23 0752 PATIENT NAME: STEVIE HENLEY JACK HISTORY AND PHYSICAL DATE OF : 45 REPORT #: [id number] PHYSICIAN: ANUSHKA LEON MD PCP: CARLTON BOONE MD REPORT IS CONFIDENTIAL AND NOT TO BE RELEASED WITHOUT AUTHORIZATION [facility] [address] [facility] [place] [address] Signed PIOTR/BECKYL /[id number] Copies: ~ Electronically Signed By: ANUSHKA LEON MD 03/09/23 075 PATIENT NAME: STEVIE HENLEY HISTORY AND PHYSICAL DATE OF : 45 REPORT #: [id number] PHYSICIAN: ANUSHKA LEON MD PCP: CARLTON BOONE MD REPORT IS CONFIDENTIAL AND NOT TO BE RELEASED WITHOUT AUTHORIZATION
--- NOTE | 2023-03-09 09:43 | NUR ---
REPORT RECEIVED FROM NIGHT RN AND PT. CARE RESUMED. PT. IS ALERT AND ORIENTED TO ALL. C/O NEUROPATHY IN HANDS/FEET AND ADMIN GABAPENTIN. ASSESSMENT COMPLETED AND MEDS ADMIN. CALL LIGHT IN REACH.
--- NOTE | 2023-03-09 10:00 | NUR ---
Completed IDT meeting. Spoke with Dr. Rios and he signed Abcess from Hospital form. I called Dr. Leon and she had reservations about pt leaving, but agrees when explained this is a trial run. If pt does not do well, she will stay through the weekend. She will sign Abcess form also. Updated pt I spoke with and she must use her walker and not a cane while she is at home. Pt agrees. They will trial home trip and PT, Abena, will meet them there to work with pt. Requested pt to return in 2-3 hrs. Pt will go home with spouse.
--- NOTE | 2023-03-09 13:41 | NUR ---
PT ALERT, ORIENTED, DRESSED AND WITING FOR HER TO TAKE HER HOME FOR 3 HRS. PT IS EXCITED, SAID SHE SLEPT WELL. GAVE ENCOURAGEMENT, WILL FOLLOW
--- NOTE | 2023-03-09 14:28 | NUR ---
[employer] OPERATIONS AGENT CONTACTED PT. TO CHECK IN. PER , HE WILL DRIVE HER BACK WITH IN THE HOUR.
[2023-03-09 14:35] VITALS: BP 134/72
--- NOTE | 2023-03-09 14:36 | NUR ---
PT. RETURNED FROM HOME. DENIES PAIN AND STATES SHES WORN OUT. VITALS STABLE. CALL LIGHT IN REACH AND PT. RESTING IN BED.
--- NOTE | 2023-03-09 19:31 | NUR ---
ASSISTED PT TO BATHROOM. STRAIGHTENED OUT PATIENTS BED. CHARTED PATIENTS DINNER AND PO INTAKE. FRESH ICE WATER PROVIDED. BED ALARM SET AND CALL LIGHT IN REACH. NO OTHER IMMEDIATE NEEDS AT THIS TIME.
[2023-03-09 21:41] VITALS: BP 106/55
--- NOTE | 2023-03-09 21:50 | NUR ---
IN TO ADMINISTER MEDICATIONS, SEE MAR. PT TAKES PO MEDICATIONS WITH NO ISSUES. VITALS AND I&Os COMPLETE. ASSESSMENT COMPLETE. LUNG SOUNDS CLEAR. BOWEL TONES ACTIVE. PT REPORTS TINGLING/BURNING FEELING AND STATES "NEUROPATH IN HANDS AND FEET." PT DENIES ANY PAIN OTHERWISE AND REFUSES PRN PAIN MEDICATION WHEN OFFERED. PT DENIES ANY OTHER NEEDS AT THIS TIME. CALL LIGHT IN REACH. BED ALARM ON.
--- NOTE | 2023-03-09 23:39 | NUR ---
IN BED ALARM ALARMING. PT LAYING IN BED PRONE POSITION. PT RESPONDS WHEN ADDRESSED AND REPORTS SHE WAS MOVING IN BED. PT DENIES ANY NEEDS AT THIS TIME. CALL LIGHT IN REACH. BED ALARM ON.
--- NOTE | 2023-03-10 04:11 | NUR ---
PT CALLS TO USE BR. SBA WITH FWW TO BR AND BACK TO BED. ICE WATER PROVIDED. NO OTHER NEEDS. CALL LIGHT IN REACH.
--- NOTE | 2023-03-10 09:00 | NUR ---
REPORT RECEIVED FROM NIGHT RN AND PT CARE RESUMED. PT. IS ALERT AND ORIENTED TO ALL. ASSESSMENT COMPLETED AND MEDS ADMIN. DENIES PAIN. LEFT RESTING WITH CALL LIGHT IN REACH.
[2023-03-10 09:44] VITALS: BP 120/82
[2023-03-10 10:04] VITALS: BP 120/82
--- NOTE | 2023-03-10 11:24 | NUR ---
PATIENT COMPLETED SHOWER THIS AM, WITH SETUP HELP ONLY. PT PERFORMED ALL CARES INDEPENDENTLY. PATIENT CURRENTLY IN CHAIR AFTER USING RESTROOM, SBA W/WALKER, PT TOLERATED VERY WELL. CALL LIGHT WITHIN REACH.
--- NOTE | 2023-03-10 11:33 | NUR ---
SPOKE TO PATIENT ABOUT HER DISCHARGE PLAN. PATIENT STATES SHE FEELS SHE COULD GO HOME TODAY. PATIENT DID HAVE A HOME VISIT YESTERDAY AND PATIENT FELT THINGS WENT WELL. THE PATIEN'S WAS TO MAKE THE HOUSE LESS CLUTTERED. PT SAW PATIENT THIS MORNING AND FELT PATIENT IS READY TO GO HOME ALSO. DR. TEJEDA CALLED AND UPDATED AND WILL BE IN AT 4 PM TO ASSESS PATIENT FOR DISCHARGE.
--- NOTE | 2023-03-10 14:42 | NUR ---
PT. BROUGHT WARM BLANKET AND SBA WITH FWW TO BATHROOM AND BACK. DENIES FURTHER NEEDS. CALL LIGHT IN REACH.
--- NOTE | 2023-03-10 15:45 | NUR ---
ALL DISCHARGE INSTRUCTIONS REVIEWED WITH PT. AND QUESTIONS ANSWERED. PT. ASSISTED [facility]. LEFT WITH ALL BELONGINGS VIA WHEEL CHAIR.
== END 2023-03-10 16:45 | disposition home health service (06) | DRG 948 ==
LOC: MS 09:01
PROVIDERS: ADMIT Obstetrics & Gynecology; ATTEND Obstetrics & Gynecology
DX: R41.0 Disorientation, unspecified (principal); Z20.822 Contact with and (suspected) exposure to COVID-19; I10 Essential (primary) hypertension; I48.91 Unspecified atrial fibrillation; E11.51 Type 2 diabetes mellitus with diabetic peripheral angiopathy without gangrene; E78.5 Hyperlipidemia, unspecified; F32.9 Major depressive disorder, single episode, unspecified; L90.0 Lichen sclerosus et atrophicus; Z88.2 Allergy status to sulfonamides; Z88.8 Allergy status to other drugs, medicaments and biological substances; Z91.048 Other nonmedicinal substance allergy status; Z79.899 Other long term (current) drug therapy
CPT/HCPCS: 97110; 97116; 97162; 97166; 97530; 97535; A9270; C9803; U0003

== ENCOUNTER 2023-05-25 11:00 | Inpatient (IN) | payer OTHER, MEDICARE ==
[~2023-05-25] VITALS: Ht 160 cm; Wt 85.0 kg
--- OUTSIDE RECORDS SUMMARY | ~2023-05-25 | XMS | Continuity of Care Document ---
Demographics + + + | Address | [address] | | | [place] [address] | + + + | Preferred Language | Unknown | + + + | Marital Status | | + + + | Evangelical Affiliation | Unknown | + + + | Race | White | + + + | Ethnic Group | Not or | + + + Author + + + | Author | [facility] | + + + | Organization | [facility] | + + + | Address | [address] | | | [place] [address] | + + + | Phone | | + + + Care Team Providers + + + + | Care Director Of Employee Development Name | Role | Phone | + + + + Unavailable | Unavailable | + + + + Unavailable | Unavailable | + + + + Unavailable | Unavailable | + + + + Unavailable | Unavailable | + + + + Allergies and Intolerances + + + + + | date | description | facility | type | + + + + + | (no date) | Rofecoxib | [facility] | | + + + + + | (no date) | Lisinopril | [facility] | | + + + + + | (no date) | Rofecoxib | [facility] ([facility] | | + + + + + | (no date) | Naproxen | [facility] | (unknown) | | | | Hospital | | + + + + + | (no date) | Pregabalin | [facility] | (unknown) | | | | Hospital | | + + + + + | (no date) | pregabalin | [facility] | (unknown) | | | | Hospital | | + + + + + | (no date) | Rofecoxib | [facility] | (unknown) | | | | Hospital | | + + + + + | (no date) | rofecoxib | [facility] | (unknown) | | | | Hospital | | + + + + + | (no date) | Lisinopril | [facility] | (unknown) | | | | Hospital | | + + + + + | (no date) | lisinopril | [facility] ([facility] | | | | [facility] | | + + + + + | (no date) | Memantine | [facility] (unknown) | | | | Hospital | | + + + + + | (no date) | Pregabalin | [facility] (unknown) | | | | [facility] | | + + + + + | (no date) | Adhesive agent | [facility] | (unknown) | | | | Hospital | | + + + + + | (no date) | Pregabalin | [facility] (unknown[facility] | | | | [facility] | | + + + + + | (no date) | Naproxen | [facility] | (unknown) | | | | Hospital | | + + + + + | (no date) | Memantine | [facility] | (unknown) | | | | Hospital | | + + + + + | (no date) | memantine | [facility] | (unknown) | | | | Hospital | | + + + + + | (no date) | Naproxen | [facility] | (unknown) | | | | Hospital | | + + + + + | (no date) | naproxen | [facility] | (unknown) | | | | Hospital | | + + + + + | (no date) | Blistered skin | [facility] ([facility] | | + + + + + | (no date) | Lisinopril | [facility] ([facility] | | | | [facility] | | + + + + + | (no date) | Sulfa (Sulfonamide | [facility] | ([facility]) | | | Antibiotics) | | | + + + + + | (no date) | lisinopril | [facility] | (unknown) | + + + + + | (no date) | naproxen | [facility] | (unknown) | + + + + + | (no date) | adhesive | [facility] | (unknown) | + + + + + | (no date) | memantine | [facility] | (unknown) | + + + + + | (no date) | rofecoxib | [facility] | (unknown) | + + + + + | (no date) | pregabalin | [facility] | (unknown) | + + + + + | (no date) | Adhesive agent | [facility] ([facility] | [facility] | | + + + + + | (no date) | Memantine | [facility] | (unknown) | | | | Hospital | | + + + + + Encounters No information. Functional Status No information. Immunizations No information. Medications + + + + | date | description | facility | + + + + | 2022-05-29 00:00 | FLUOXETINE HCL | [facility] | + + + + | 2023-03-06 00:00 | FLUOXETINE HCL | [facility] | + + + + | 2023-03-10 00:00 | FLUOXETINE HCL | [facility] | + + + + | 2023-05-21 00:00 | FLUOXETINE HCL | [facility] | + + + + | 2023-05-24 00:00 | FLUOXETINE HCL | [facility] | + + + + | 2022-05-29 00:00 | PSEUDOEPHEDRINE HCL | [facility] | + + + + | 2023-03-06 00:00 | PSEUDOEPHEDRINE HCL | [facility] | + + + + | 2023-03-10 00:00 | PSEUDOEPHEDRINE HCL | [facility] | + + + + | 2023-05-21 00:00 | PSEUDOEPHEDRINE HCL | [facility] | + + + + | 2023-05-24 00:00 | PSEUDOEPHEDRINE HCL | [facility] | + + + + | 2022-05-29 00:00 | GABAPENTIN | [facility] | + + + + | 2023-03-06 00:00 | GABAPENTIN | [facility] | + + + + | 2023-03-10 00:00 | GABAPENTIN | [facility] | + + + + | 2023-05-21 00:00 | GABAPENTIN | [facility] | + + + + | 2023-05-24 00:00 | GABAPENTIN | [facility] | + + + + | 2023-03-06 00:00 | Olopatadine HCl | [facility] | + + + + | 2023-03-10 00:00 | Olopatadine HCl | [facility] | + + + + | 2023-05-21 00:00 | Olopatadine HCl | [facility] | + + + + | 2023-05-24 00:00 | Olopatadine HCl | [facility] | + + + + | 2022-05-29 00:00 | OLOPATADINE HCL 0.1% | [facility] | + + + + | 2023-03-06 00:00 | OLOPATADINE HCL 0.1% | [facility] | + + + + | 2022-05-29 00:00 | DOCUSATE SODIUM | [facility] | + + + + | 2023-03-06 00:00 | DOCUSATE SODIUM | [facility] | + + + + | 2023-03-10 00:00 | DOCUSATE SODIUM | [facility] | + + + + | 2023-05-21 00:00 | DOCUSATE SODIUM | [facility] | + + + + | 2023-05-24 00:00 | DOCUSATE SODIUM | [facility] | + + + + | 2014-07-07 00:00 | HYDROCODONE | [facility] | | | BIT/ACETAMINOPHEN | | + + + + | 2014-07-07 00:00 | HYDROCODONE | [facility] | | | BIT/ACETAMINOPHEN | | + + + + | 2022-05-29 00:00 | APIXABAN | [facility] | + + + + | 2023-03-06 00:00 | APIXABAN | [facility] | + + + + | 2023-03-10 00:00 | APIXABAN | [facility] | + + + + | 2023-05-21 00:00 | APIXABAN | [facility] | + + + + | 2023-05-24 00:00 | APIXABAN | [facility] | + + + + | 2022-05-29 00:00 | ATENOLOL | [facility] | + + + + | 2023-03-06 00:00 | ATENOLOL | [facility] | + + + + | 2023-03-10 00:00 | ATENOLOL | [facility] | + + + + | 2023-05-21 00:00 | ATENOLOL | [facility] | + + + + | 2023-05-24 00:00 | ATENOLOL | [facility] | + + + + | 2022-05-29 00:00 | MONTELUKAST SODIUM | [facility] | + + + + | 2023-03-06 00:00 | MONTELUKAST SODIUM | [facility] | + + + + | 2023-03-10 00:00 | MONTELUKAST SODIUM | [facility] | + + + + | 2023-05-21 00:00 | MONTELUKAST SODIUM | [facility] | + + + + | 2023-05-24 00:00 | MONTELUKAST SODIUM | [facility] | + + + + | 2022-05-29 00:00 | TRIAMCINOLONE ACET | [facility] | + + + + | 2023-03-06 00:00 | TRIAMCINOLONE ACET | [facility] | + + + + | 2023-03-10 00:00 | TRIAMCINOLONE ACET | [facility] | + + + + | 2023-05-21 00:00 | TRIAMCINOLONE ACET | [facility] | + + + + | 2023-05-24 00:00 | TRIAMCINOLONE ACET | [facility] | + + + + | 2022-05-29 00:00 | FLUTICASONE PROPIONATE | [facility] | + + + + | 2023-03-06 00:00 | FLUTICASONE PROPIONATE | [facility] | + + + + | 2023-03-10 00:00 | FLUTICASONE PROPIONATE | [facility] | + + + + | 2023-05-21 00:00 | FLUTICASONE PROPIONATE | [facility] | + + + + | 2023-05-24 00:00 | FLUTICASONE PROPIONATE | [facility] | + + + + | 2020-01-02 00:00 | IBUPROFEN | [facility] | + + + + | 2020-01-02 00:00 | IBUPROFEN | [facility] | + + + + | 2022-05-29 00:00 | NIFEDIPINE | [facility] | + + + + | 2020-01-02 00:00 | ACETAMINOPHEN | [facility] | + + + + | 2020-01-02 00:00 | ACETAMINOPHEN | [facility] | + + + + | 2022-05-29 00:00 | ASPIRIN | [facility] | + + + + | 2023-03-06 00:00 | ASPIRIN | [facility] | + + + + | 2023-03-10 00:00 | ASPIRIN | [facility] | + + + + | 2023-05-21 00:00 | ASPIRIN | [facility] | + + + + | 2023-05-24 00:00 | ASPIRIN | [facility] | + + + + | 2022-05-29 00:00 | CHOLECALCIFEROL (VITAMIN | [facility] | | | D3) | | + + + + | 2023-03-06 00:00 | CHOLECALCIFEROL (VITAMIN | [facility] | | | D3) | | + + + + | 2023-03-10 00:00 | CHOLECALCIFEROL (VITAMIN | [facility] | | | D3) | | + + + + | 2022-05-29 00:00 | FUROSEMIDE | [facility] | + + + + | 2023-03-06 00:00 | FUROSEMIDE | [facility] | + + + + | 2023-03-10 00:00 | FUROSEMIDE | [facility] | + + + + | 2023-05-21 00:00 | FUROSEMIDE | [facility] | + + + + | 2023-05-24 00:00 | FUROSEMIDE | [facility] | + + + + | 2022-05-29 00:00 | CLOPIDOGREL BISULFATE | [facility] | + + + + | 2023-03-06 00:00 | CLOPIDOGREL BISULFATE | [facility] | + + + + | 2023-03-10 00:00 | CLOPIDOGREL BISULFATE | [facility] | + + + + | 2023-05-21 00:00 | CLOPIDOGREL BISULFATE | [facility] | + + + + | 2023-05-24 00:00 | CLOPIDOGREL BISULFATE | [facility] | + + + + | 2022-02-22 00:00 | CEPHALEXIN | [facility] | + + + + | 2022-05-29 00:00 | FLUOXETINE HCL | [facility] | + + + + | 2023-03-06 00:00 | FLUOXETINE HCL | [facility] | + + + + | 2023-03-10 00:00 | FLUOXETINE HCL | [facility] | + + + + | 2023-05-21 00:00 | FLUOXETINE HCL | [facility] | + + + + | 2023-05-24 00:00 | FLUOXETINE HCL | [facility] | + + + + | 2022-05-29 00:00 | ATORVASTATIN | [facility] | + + + + | 2023-03-06 00:00 | ATORVASTATIN | [facility] | + + + + | 2023-03-10 00:00 | ATORVASTATIN | [facility] | + + + + | 2023-05-21 00:00 | ATORVASTATIN | [facility] | + + + + | 2023-05-24 00:00 | ATORVASTATIN | [facility] | + + + + | 2022-05-29 00:00 | POTASSIUM CHLORIDE | [facility] | + + + + | 2023-03-06 00:00 | POTASSIUM CHLORIDE | [facility] | + + + + | 2023-03-10 00:00 | POTASSIUM CHLORIDE | [facility] | + + + + | 2023-05-21 00:00 | POTASSIUM CHLORIDE | [facility] | + + + + | 2023-05-24 00:00 | POTASSIUM CHLORIDE | [facility] | + + + + | 2023-03-06 00:00 | POTASSIUM CHLORIDE | [facility] | + + + + | 2023-03-10 00:00 | POTASSIUM CHLORIDE | [facility] | + + + + | 2023-05-21 00:00 | POTASSIUM CHLORIDE | [facility] | + + + + | 2023-05-24 00:00 | POTASSIUM CHLORIDE | [facility] | + + + + | 2022-05-29 00:00 | CHOLECALCIFEROL (VITAMIN | [facility] | | | D3) | | + + + + | 2022-05-29 00:00 | CALCIUM CARBONATE/VITAMIN | [facility] | | | D3 | | + + + + | 2023-03-06 00:00 | CALCIUM CARBONATE/VITAMIN | [facility] | | | D3 | | + + + + | 2023-03-10 00:00 | CALCIUM CARBONATE/VITAMIN | [facility] | | | D3 | | + + + + | 2023-05-21 00:00 | CALCIUM CARBONATE/VITAMIN | [facility] | | | D3 | | + + + + | 2023-05-24 00:00 | CALCIUM CARBONATE/VITAMIN | [facility] | | | D3 | | + + + + | 2022-05-29 00:00 | TRAMADOL HCL | [facility] | + + + + | 2023-03-06 00:00 | TRAMADOL HCL | [facility] | + + + + | 2023-03-10 00:00 | TRAMADOL HCL | [facility] | + + + + | 2023-05-21 00:00 | TRAMADOL HCL | [facility] | + + + + | 2023-05-24 00:00 | TRAMADOL HCL | [facility] | + + + + | 2019-10-03 00:00 | TRAMADOL HCL | [facility] | + + + + | 2019-10-03 00:00 | TRAMADOL HCL | [facility] | + + + + | 2023-05-21 00:00 | HYDROCODONE | [facility] | | | BIT/ACETAMINOPHEN | | + + + + | 2023-05-23 00:00 | HYDROCODONE | [facility] | | | BIT/ACETAMINOPHEN | | + + + + | 2022-05-29 00:00 | ROSUVASTATIN CALCIUM | [facility] | + + + + | 2023-03-06 00:00 | ROSUVASTATIN CALCIUM | [facility] | + + + + | 2023-03-10 00:00 | ROSUVASTATIN CALCIUM | [facility] | + + + + | 2023-05-21 00:00 | ROSUVASTATIN CALCIUM | [facility] | + + + + | 2023-05-24 00:00 | ROSUVASTATIN CALCIUM | [facility] | + + + + | 2022-05-29 00:00 | METFORMIN HCL | [facility] | + + + + | 2023-03-06 00:00 | METFORMIN HCL | [facility] | + + + + | 2023-03-10 00:00 | METFORMIN HCL | [facility] | + + + + | 2023-05-21 00:00 | METFORMIN HCL | [facility] | + + + + | 2023-05-24 00:00 | METFORMIN HCL | [facility] | + + + + 2023-03-06 00:00 | METOPROLOL SUCCINATE | [facility] | + + + + | 2023-03-10 00:00 | METOPROLOL SUCCINATE | [facility] | + + + + | 2023-05-21 00:00 | METOPROLOL SUCCINATE | [facility] | + + + + | 2023-05-24 00:00 | METOPROLOL SUCCINATE | [facility] | + + + + | 2022-05-29 00:00 | Steffanie QUIROS & | [facility] | | | E/LUTEIN/MINERALS | | + + + + | 2020-01-02 00:00 | HYDROMORPHONE HCL | [facility] | + + + + | 2020-01-02 00:00 | HYDROMORPHONE HCL | [facility] | + + + + | 2022-05-29 00:00 | HYDROMORPHONE HCL | [facility] | + + + + | 2023-03-06 00:00 | HYDROMORPHONE HCL | [facility] | + + + + | 2023-03-10 00:00 | HYDROMORPHONE HCL | [facility] | + + + + | 2023-05-21 00:00 | HYDROMORPHONE HCL | [facility] | + + + + | 2023-05-24 00:00 | HYDROMORPHONE HCL | [facility] | + + + + | 2022-05-29 00:00 | LOSARTAN POTASSIUM | [facility] | + + + + | 2022-05-29 00:00 | MEMANTINE HCL | [facility] | + + + + | 2023-03-06 00:00 | MEMANTINE HCL | [facility] | + + + + | 2023-03-10 00:00 | MEMANTINE HCL | [facility] | + + + + | 2023-05-21 00:00 | MEMANTINE HCL | [facility] | + + + + | 2023-05-24 00:00 | MEMANTINE HCL | [facility] | + + + + | 2022-05-29 00:00 | FEXOFENADINE HCL | [facility] | + + + + | 2023-03-06 00:00 | FEXOFENADINE HCL | [facility] | + + + + | 2023-03-10 00:00 | FEXOFENADINE HCL | [facility] | + + + + | 2023-05-21 00:00 | FEXOFENADINE HCL | [facility] | + + + + | 2023-05-24 00:00 | FEXOFENADINE HCL | [facility] | + + + + | 2022-05-29 00:00 | FEXOFENADINE HCL | [facility] | + + + + | 2023-03-06 00:00 | FEXOFENADINE HCL | [facility] | + + + + | 2023-03-10 00:00 | FEXOFENADINE HCL | [facility] | + + + + | 2023-05-21 00:00 | FEXOFENADINE HCL | [facility] | + + + + | 2023-05-24 00:00 | FEXOFENADINE HCL | [facility] | + + + + Problems + + + + | date | description | facility | + + + + | 2019-02-21 00:00 | Chest wall pain | [facility] | + + + + | 2019-02-21 00:00 | Chest wall pain | [facility] | + + + + | 2019-02-21 00:00 | Chest pain | [facility] | + + + + | 2019-02-21 00:00 | Chest pain | [facility] | + + + + | 2019-10-03 00:00 | Fall | [facility] | + + + + | 2019-10-03 00:00 | Fall | [facility] | + + + + | 2021-02-04 00:00 | Atrial fibrillation with | [facility] | | | controlled ventricular rate | | | | | | + + + + | 2021-02-04 00:00 | Atrial fibrillation with | [facility] | | | controlled ventricular rate | | | | | | + + + + | 2022-02-16 00:00 | Patient left without being | [facility] | | | seen | | + + + + | 2022-02-16 00:00 | Patient left without being | [facility] | | | seen | | + + + + | 2022-02-22 00:00 | Urinary tract infection | [facility] | + + + + | 2022-02-22 00:00 | Urinary tract infection | [facility] | + + + + | 2022-02-22 00:00 | Vertigo | [facility] | + + + + | 2022-02-22 00:00 | Vertigo | [facility] | + + + + | 2022-02-22 14:31 | Essential (primary) | [facility] | | | hypertension | | + + + + | 2022-02-22 14:31 | URINARY TRACT INFECTION, | [facility] | | | SITE NOT SPECIFIED | | + + + + | 2022-02-22 14:31 | Dizziness and giddiness | [facility] | + + + + | 2022-02-22 14:31 | [facility] (CURRENT) USE OF | [facility] | | | ORAL HYPOGLYCEMIC DRUGS | | + + + + | 2022-02-22 14:31 | OTHER RUG WASHER (CURRENT) | [facility] | | | DRUG THERAPY | | + + + + | 2022-02-22 14:31 | PERSONAL HISTORY OF | [facility] | | | NICOTINE DEPENDENCE | | + + + + | 2022-02-22 14:31 | ALLERGY STATUS TO | [facility] | | | SULFONAMIDES STATUS | | + + + + | 2022-02-22 14:31 | ALLERGY STATUS TO OTH | [facility] | | | DRUG/MEDS/BIOL SUBST STATUS | | | | | | + + + + | 2022-06-22 09:15 | REPEATED FALLS | [facility] | + + + + | 2022-07-26 07:43 | REPEATED FALLS | [facility] | + + + + | 2023-02-20 15:11 | ENCOUNTER FOR OTHER | [facility] | | | PREPROCEDURAL EXAMINATION | | + + + + | 2023-03-01 05:55 | ANEMIA, UNSPECIFIED | [facility] | + + + + | 2023-03-01 05:55 | TYPE 2 DIABETES W DIABETIC | [facility] | | | PERIPHERAL ANGIOPATH W/ | | + + + + | 2023-03-01 05:55 | VITAMIN D DEFICIENCY, | [facility] | | | UNSPECIFIED | | + + + + | 2023-03-01 05:55 | HYPERLIPIDEMIA, | [facility] | | | UNSPECIFIED | | + + + + | 2023-03-01 05:55 | MAJOR DEPRESSIVE DISORDER, | [facility] | | | SINGLE EPISODE, UNSPECI | | + + + + | 2023-03-01 05:55 | OBSTRUCTIVE SLEEP APNEA | [facility] | | | (ADULT) (PEDIATRIC) | | + + + + | 2023-03-01 05:55 | Essential (primary) | [facility] | | | hypertension | | + + + + | 2023-03-01 05:55 | UNSPECIFIED ATRIAL | [facility] | | | FIBRILLATION | | + + + + | 2023-03-01 05:55 | LICHEN SCLEROSUS ET | [facility] | | | ATROPHICUS | | + + + + | 2023-03-01 05:55 | UNSPECIFIED | [facility] | | | OSTEOARTHRITIS, UNSPECIFIED | | | | SITE | | + + + + | 2023-03-01 05:55 | DISORDER OF KIDNEY AND | [facility] | | | URETER, UNSPECIFIED | | + + + + | 2023-03-01 05:55 | CYSTOCELE, UNSPECIFIED | [facility] | + + + + | 2023-03-01 05:55 | CYSTOCELE, MIDLINE | [facility] | + + + + | 2023-03-01 05:55 | VAGINAL ENTEROCELE | [facility] | + + + + | 2023-03-01 05:55 | RECTOCELE | [facility] | + + + + | 2023-03-01 05:55 | [facility] (CURRENT) USE OF | [facility] | | | ANTICOAGULANTS | | + + + + | 2023-03-01 05:55 | OTHER [facility] (CURRENT) | [facility] | | | DRUG THERAPY | | + + + + | 2023-03-01 05:55 | PERSONAL HISTORY OF | [facility] | | | NICOTINE DEPENDENCE | | + + + + | 2023-03-01 05:55 | ALLERGY STATUS TO OTHER | [facility] | | | ANTIBIOTIC AGENTS STATUS | | + + + + | 2023-03-01 05:55 | ALLERGY STATUS TO | [facility] | | | ANALGESIC AGENT STATUS | | + + + + | 2023-03-01 05:55 | ALLERGY STATUS TO OTH | [facility] | | | DRUG/MEDS/BIOL SUBST STATUS | | | | | | + + + + | 2023-03-01 05:55 | ACQUIRED ABSENCE OF BOTH | [facility] | | | CERVIX AND UTERUS | | + + + + | 2023-03-01 05:55 | OTHER SPECIFIED | [facility] | | | POSTPROCEDURAL STATES | | + + + + | 2023-03-06 09:01 | TYPE 2 DIABETES W DIABETIC | [facility] | | | PERIPHERAL ANGIOPATH W/ | | + + + + | 2023-03-06 09:01 | HYPERLIPIDEMIA, | [facility] | | | UNSPECIFIED | | + + + + | 2023-03-06 09:01 | MAJOR DEPRESSIVE DISORDER, | [facility] | | | SINGLE EPISODE, UNSPECI | | + + + + | 2023-03-06 09:01 | Essential (primary) | [facility] | | | hypertension | | + + + + | 2023-03-06 09:01 | UNSPECIFIED ATRIAL | [facility] | | | FIBRILLATION | | + + + + | 2023-03-06 09:01 | LICHEN SCLEROSUS ET | [facility] | | | ATROPHICUS | | + + + + | 2023-03-06 09:01 | DISORIENTATION, | [facility] | | | UNSPECIFIED | | + + + + | 2023-03-06 09:01 | OTHER [facility] (CURRENT) | [facility] | | | DRUG THERAPY | | + + + + | 2023-03-06 09:01 | ALLERGY STATUS TO | [facility] | | | SULFONAMIDES STATUS | | + + + + | 2023-03-06 09:01 | ALLERGY STATUS TO OTH | [facility] | | | DRUG/MEDS/BIOL SUBST STATUS | | | | | | + + + + | 2023-03-06 09:01 | OTHER NONMEDICINAL | [facility] | | | SUBSTANCE ALLERGY STATUS | | + + + + | 2023-04-27 11:36 | MUSCLE WEAKNESS | [facility] | | | (GENERALIZED) | | + + + + | 2023-04-27 11:36 | UNSTEADINESS ON FEET | [facility] | + + + + | 2023-04-27 11:36 | REPEATED FALLS | [facility] | + + + + | 2023-05-21 00:00 | Fracture of posterior | [facility] | | | malleolus | | + + + + | 2023-05-21 00:00 | Closed fracture of fibula | [facility] | + + + + | 2023-05-21 00:00 | Tear of deltoid ligament | [facility] | | | of right ankle | | + + + + | 2023-05-21 20:22 | Essential (primary) | [facility] | | | hypertension | | + + + + | 2023-05-21 20:22 | PREDIABETES | [facility] | + + + + | 2023-05-21 20:22 | OTH FRACTURE OF UPPER AND | [facility] | | | LOWER END OF RIGHT FIBULA, | | | | INIT | | + + + + | 2023-05-21 20:22 | OTH FRACTURE OF RIGHT | [facility] | | | LOWER LEG, INIT FOR CLOS FX | | | | | | + + + + | 2023-05-21 20:22 | FALL SAME LEV FROM | [facility] | | | SLIP/TRIP W/O STRIKE | | | | AGAINST OB | | + + + + | 2023-05-21 20:22 | OTHER RUG WASHER (CURRENT) | [facility] | | | DRUG THERAPY | | + + + + | 2023-05-21 20:22 | PERSONAL HISTORY OF | [facility] | | | NICOTINE DEPENDENCE | | + + + + | 2023-05-21 20:22 | ALLERGY STATUS TO | [facility] | | | SULFONAMIDES STATUS | | + + + + | 2023-05-21 20:22 | ALLERGY STATUS TO OTH | [facility] | | | DRUG/MEDS/BIOL SUBST STATUS | | | | | | + + + + | 2023-05-21 20:22 | OTHER NONMEDICINAL | [facility] | | | SUBSTANCE ALLERGY STATUS | | + + + + | 2023-05-23 22:34 | Essential (primary) | [facility] | | | hypertension | | + + + + | 2023-05-23 22:34 | OTH FRACTURE OF UPPER AND | [facility] | | | LOWER END OF RIGHT FIBULA, | | | | INIT | | + + + + | 2023-05-23 22:34 | OTH FRACTURE OF RIGHT | [facility] | | | LOWER LEG, INIT FOR CLOS FX | | | | | | + + + + | 2023-05-23 22:34 | UNSPECIFIED FALL, INITIAL | [facility] | | | ENCOUNTER | | + + + + | 2023-05-23 22:34 | RUG WASHER (CURRENT) USE OF | [facility] | | | ANTICOAGULANTS | | + + + + | 2023-05-23 22:34 | OTHER [facility] (CURRENT) | [facility] | | | DRUG THERAPY | | + + + + | 2023-05-23 22:34 | PERSONAL HISTORY OF | [facility] | | | NICOTINE DEPENDENCE | | + + + + | 2023-05-23 22:34 | ALLERGY STATUS TO | [facility] | | | SULFONAMIDES STATUS | | + + + + | 2023-05-23 22:34 | ALLERGY STATUS TO OTH | [facility] | | | DRUG/MEDS/BIOL SUBST STATUS | | | | | | + + + + | 2023-05-23 22:34 | OTHER NONMEDICINAL | [facility] | | | SUBSTANCE ALLERGY STATUS | | + + + + | 2023-05-29 14:15 | UNSP FRACTURE OF RIGHT | [facility] | | | LOWER LEG, INIT F | | + + + + Procedures No information. Results/Labs +--------+--------+ + +---------+--------+ + | test | date | author | facility | value | unit | | | | | | | | | interpreta | | | | | | | | tion | +--------+--------+ + +---------+--------+ + + + | Result panel 1 | + + + + + + +---------+ + + | (unknown) | (no date) | (unknown) | [facility] | (no | (units | (unknown) | | | | | [facility] | value) | unknown) | | | | | [facility] | | | | + + + + +---------+ + + + + | Result panel 2 | + + + + + + +---------+ + + | (unknown) | (no date) | (unknown) | [facility] | (no | (units | (unknown) | | | | | [facility] | value) | unknown) | | | | | | [facility] | | | | + + + + +---------+ + + + + | Result panel 3 | + + + + + + +---------+ + + | (unknown) | (no date) | (unknown) | [facility] | (no | (units | (unknown) | | | | | [facility] | value) | unknown) | | | | | | [facility] | | | | + + + + +---------+ + + + + | Result panel 4 | + + + + + + +---------+ + + | (unknown) | (no date) | (unknown) | [facility] | (no | (units | (unknown) | | | | | [facility] | value) | unknown) | | | | | [facility] | | | | + + + + +---------+ + + + + | Result panel 5 | + + + + + + +---------+ + + | (unknown) | (no date) | (unknown) | [facility] | (no | (units | (unknown) | | | | | [facility] | value) | unknown) | | | | | [facility] | | | | + + + + +---------+ + + + + | Result panel 6 | + + + + + + +---------+ + + | (unknown) | (no date) | (unknown) | [facility] | (no | (units | (unknown) | | | | | [facility] | value) | unknown) | | | | | [facility] | | | | + + + + +---------+ + + + + | Result panel 7 | + + + + + + +---------+ + + | (unknown) | (no date) | (unknown) | [facility] | (no | (units | (unknown) | | | | | [facility] | value) | unknown) | | | | | [facility] | | | | + + + + +---------+ + + + + | Result panel 8 | + + + + + + +---------+ + + | (unknown) | (no date) | (unknown) | [facility] | (no | (units | (unknown) | | | | | [facility] | value) | unknown) | | | | | [facility] | | | | + + + + +---------+ + + + + | Result panel 9 | + + + + + + +---------+ + + | (unknown) | (no date) | (unknown) | [facility] | (no | (units | (unknown) | | | | | [facility] | value) | unknown) | | | | | [facility] | | | | + + + + +---------+ + + + + | Result panel 10 | + + + + + + +---------+ + + | (unknown) | (no date) | (unknown) | [facility] | (no | (units | (unknown) | | | | | [facility] | value) | unknown) | | | | | [facility] | | | | + + + + +---------+ + + + + | Result panel 11 | + + + + + + +---------+ + + | (unknown) | (no date) | (unknown) | [facility] | (no | (units | (unknown) | | | | | [facility] | value) | unknown) | | | | | [facility] | | | | + + + + +---------+ + + + + | Result panel 12 | + + + + + + +---------+ + + | (unknown) | (no date) | (unknown) | [facility] | (no | (units | (unknown) | | | | | [facility] | value) | unknown) | | | | | [facility] | | | | + + + + +---------+ + + + + | Result panel 13 | + + + + + + +---------+ + + | (unknown) | (no date) | (unknown) | [facility] | (no | (units | (unknown) | | | | | [facility] | value) | unknown) | | | | | [facility] | | | | + + + + +---------+ + + + + | Result panel 14 | + + + + + + +---------+ + + | (unknown) | (no date) | (unknown) | [facility] | (no | (units | (unknown) | | | | | [facility] | value) | unknown) | | | | | [facility] | | | | + + + + +---------+ + + + + | Result panel 15 | + + + + + + +---------+ + + | (unknown) | (no date) | (unknown) | [facility] | (no | (units | (unknown) | | | | | [facility] | value) | unknown) | | | | | [facility] | | | | + + + + +---------+ + + + + | Result panel 16 | + + + + + + +---------+ + + | (unknown) | (no date) | (unknown) | [facility] | (no | (units | (unknown) | | | | | [facility] | value) | unknown) | | | | | [facility] | | | | + + + + +---------+ + + + + | Result panel 17 | + + + + + + +---------+ + + | (unknown) | (no date) | (unknown) | [facility] | (no | (units | (unknown) | | | | | [facility] | value) | unknown) | | | | | [facility] | | | | + + + + +---------+ + + + + | Result panel 18 | + + + + + + +---------+ + + | (unknown) | (no date) | (unknown) | [facility] | (no | (units | (unknown) | | | | | [facility] | value) | unknown) | | | | | [facility] | | | | + + + + +---------+ + + + + | Result panel 19 | + + + + + + +---------+ + + | (unknown) | (no date) | (unknown) | [facility] | (no | (units | (unknown) | | | | | [facility] | value) | unknown) | | | | | [facility] | | | | + + + + +---------+ + + + + | Result panel 20 | + + + + + + +---------+ + + | (unknown) | (no date) | (unknown) | [facility] | (no | (units | (unknown) | | | | | [facility] | value) | unknown) | | | | | [facility] | | | | + + + + +---------+ + + + + | Result panel 21 | + + + + + + +---------+ + + | (unknown) | (no date) | (unknown) | [facility] | (no | (units | (unknown) | | | | | [facility] | value) | unknown) | | | | | [facility] | | | | + + + + +---------+ + + + + | Result panel 22 | + + + + + + +---------+ + + | (unknown) | (no date) | (unknown) | [facility] | (no | (units | (unknown) | | | | | [facility] | value) | unknown) | | | | | [facility] | | | | + + + + +---------+ + + + + | Result panel 23 | + + + + + + +---------+ + + | (unknown) | (no date) | (unknown) | [facility] | (no | (units | (unknown) | | | | | [facility] | value) | unknown) | | | | | [facility] | | | | + + + + +---------+ + + + + | Result panel 24 | + + + + + + +---------+ + + | (unknown) | (no date) | (unknown) | [facility] | (no | (units | (unknown) | | | | | [facility] | value) | unknown) | | | | | [facility] | | | | + + + + +---------+ + + + + | Result panel 25 | + + + + + + +---------+ + + | (unknown) | (no date) | (unknown) | [facility] | (no | (units | (unknown) | | | | | [facility] | value) | unknown) | | | | | [facility] | | | | + + + + +---------+ + + + + | Result panel 26 | + + + + + + +---------+ + + | (unknown) | (no date) | (unknown) | [facility] | (no | (units | (unknown) | | | | | [facility] | value) | unknown) | [facility] | | [facility] | | | | + + + + +---------+ + + + + | Result panel 27 | + + + + + + +---------+ + + | (unknown) | (no date) | (unknown) | [facility] | (no | (units | (unknown) | | | | | [facility] | value) | unknown) | | | | | [facility] | | | | + + + + +---------+ + + + + | Result panel 28 | + + + + + + +---------+ + + | (unknown) | (no date) | (unknown) | [facility] | (no | (units | (unknown) | | | | | [facility] | value) | unknown) | | [facility] | [facility] | | | | + + + + +---------+ + + + + | Result panel 29 | + + + + + + +---------+ + + | (unknown) | (no date) | (unknown) | [facility] | (no | (units | (unknown) | | | | | [facility] | value) | unknown) | | | | | [facility] | | | | + + + + +---------+ + + + + | Result panel 30 | + + + + + + +---------+ + + | (unknown) | (no date) | (unknown) | [facility] | (no | (units | (unknown) | | | | | [facility] | value) | unknown) | | | | [facility] | | | | + + + + +---------+ + + + + | Result panel 31 | + + + + + + +---------+ + + | (unknown) | (no date) | (unknown) | [facility] | (no | (units | (unknown) | | | | | [facility] | value) | unknown) | | | | [facility] | | | | + + + + +---------+ + + + + | Result panel 32 | + + + + + + +---------+ + + | (unknown) | (no date) | (unknown) | [facility] | (no | (units | (unknown) | | | | | [facility] | value) | unknown) | | | | | [facility] | | | | + + + + +---------+ + + + + | Result panel 33 | + + + + + + +---------+ + + | (unknown) | (no date) | (unknown) | [facility] | (no | (units | (unknown) | | | | | [facility] | value) | unknown) | | | | | [facility] | | | | + + + + +---------+ + + + + | Result panel 34 | + + + + + + +---------+ + + | (unknown) | (no date) | (unknown) | [facility] | (no | (units | (unknown) | | | | | [facility] | value) | unknown) | | | | | [facility] | | | | + + + + +---------+ + + + + | Result panel 35 | + + + + + + +---------+ + + | (unknown) | (no date) | (unknown) | [facility] | (no | (units | (unknown) | | | | | [facility] | value) | unknown) | | | | | [facility] | | | | + + + + +---------+ + + + + | Result panel 36 | + + + + + + +---------+ + + | (unknown) | (no date) | (unknown) | [facility] | (no | (units | (unknown) | | | | | [facility] | value) | unknown) | | | | | [facility] | | | | + + + + +---------+ + + + + | Result panel 37 | + + + + + + +---------+ + + | (unknown) | (no date) | (unknown) | [facility] | (no | (units | (unknown) | | | | | [facility] | value) | unknown) | | | | | [facility] | | | | + + + + +---------+ + + + + | Result panel 38 | + + + + + + +---------+ + + | (unknown) | (no date) | (unknown) | [facility] | (no | (units | (unknown) | | | | | [facility] | value) | unknown) | | | | | [facility] | | | | + + + + +---------+ + + Social History No information. Vital Signs + + + +---------+ | date | measurement | value | units | + + + +---------+ | 2022-02-16 00:00 | BMI | 30.1 | kg/m2 | + + + +---------+ | 2022-02-16 00:00 | BP_diastolic | 90 | mmHg | + + + +---------+ | 2022-02-16 00:00 | BP_systolic | 124 | mmHg | + + + +---------+ | 2022-02-16 00:00 | heart_rate | 108 | /min | + + + +---------+ | 2022-02-16 00:00 | height_metric | 160.02 | cm | + + + +---------+ | 2022-02-16 00:00 | height_standard | 63 | in | + + + +---------+ | 2022-02-16 00:00 | o2_saturation | 95 | % | + + + +---------+ | 2022-02-16 00:00 | respiration_rate | 16 | /min | + + + +---------+ | 2022-02-16 00:00 | temperature_metric | 36.22 | C | | | | | | + + + +---------+ | 2022-02-16 00:00 | | 97.2 | F | | | temperature_standar | | | | | d | | | + + + +---------+ | 2022-02-16 00:00 | weight_metric | 77.11 | kg | + + + +---------+ | 2022-02-16 00:00 | weight_standard | 170 | lb | + + + +---------+ | 2022-02-22 00:00 | BMI | 30.1 | kg/m2 | + + + +---------+ | 2022-02-22 00:00 | BP_diastolic | 92 | mmHg | + + + +---------+ | 2022-02-22 00:00 | BP_systolic | 134 | mmHg | + + + +---------+ | 2022-02-22 00:00 | heart_rate | 64 | /min | + + + +---------+ | 2022-02-22 00:00 | height_metric | 160.02 | cm | + + + +---------+ | 2022-02-22 00:00 | height_standard | 63 | in | + + + +---------+ | 2022-02-22 00:00 | o2_saturation | 94 | % | + + + +---------+ | 2022-02-22 00:00 | respiration_rate | 18 | /min | + + + +---------+ | 2022-02-22 00:00 | temperature_metric | 36.72 | C | | | | | | + + + +---------+ | 2022-02-22 00:00 | | 98.1 | F | | | temperature_standar | | | | | d | | | + + + +---------+ | 2022-02-22 00:00 | weight_metric | 77.11 | kg | + + + +---------+ | 2022-02-22 00:00 | weight_standard | 170 | lb | + + + +---------+ | 2023-02-20 00:00 | BMI | 31.9 | kg/m2 | + + + +---------+ | 2023-02-20 00:00 | height_metric | 160.02 | cm | + + + +---------+ | 2023-02-20 00:00 | height_standard | 63 | in | + + + +---------+ | 2023-02-20 00:00 | weight_metric | 81.81 | kg | + + + +---------+ | 2023-02-20 00:00 | weight_standard | 180.36 | lb | + + + +---------+ | 2023-03-06 00:00 | BMI | 33.2 | kg/m2 | + + + +---------+ | 2023-03-06 00:00 | BP_diastolic | 78 | mmHg | + + + +---------+ | 2023-03-06 00:00 | BP_systolic | 106 | mmHg | + + + +---------+ | 2023-03-06 00:00 | heart_rate | 72 | /min | + + + +---------+ | 2023-03-06 00:00 | height_metric | 160.02 | cm | + + + +---------+ | 2023-03-06 00:00 | height_standard | 63 | in | + + + +---------+ | 2023-03-06 00:00 | o2_saturation | 95 | % | + + + +---------+ | 2023-03-06 00:00 | respiration_rate | 18 | /min | + + + +---------+ | 2023-03-06 00:00 | temperature_metric | 36.61 | C | | | | | | + + + +---------+ | 2023-03-06 00:00 | | 97.9 | F | | | temperature_standar | | | | | d | | | + + + +---------+ | 2023-03-06 00:00 | weight_metric | 84.9 | kg | + + + +---------+ | 2023-03-06 00:00 | weight_standard | 187.17 | lb | + + + +---------+ | 2023-03-10 00:00 | BP_diastolic | 82 | mmHg | + + + +---------+ | 2023-03-10 00:00 | BP_systolic | 120 | mmHg | + + + +---------+ | 2023-03-10 00:00 | heart_rate | 90 | /min | + + + +---------+ | 2023-03-10 00:00 | o2_saturation | 96 | % | + + + +---------+ | 2023-03-10 00:00 | respiration_rate | 16 | /min | + + + +---------+ | 2023-03-10 00:00 | temperature_metric | 36.44 | C | | | | | | + + + +---------+ | 2023-03-10 00:00 | | 97.6 | F | | | temperature_standar | | | | | d | | | + + + +---------+ | 2023-05-21 00:00 | BMI | 33.1 | kg/m2 | + + + +---------+ | 2023-05-21 00:00 | BP_diastolic | 71 | mmHg | + + + +---------+ | 2023-05-21 00:00 | BP_systolic | 104 | mmHg | + + + +---------+ | 2023-05-21 00:00 | heart_rate | 96 | /min | + + + +---------+ | 2023-05-21 00:00 | height_metric | 160.02 | cm | + + + +---------+ | 2023-05-21 00:00 | height_standard | 63 | in | + + + +---------+ | 2023-05-21 00:00 | o2_saturation | 97 | % | + + + +---------+ | 2023-05-21 00:00 | respiration_rate | 17 | /min | + + + +---------+ | 2023-05-21 00:00 | temperature_metric | 36.78 | C | | | | | | + + + +---------+ | 2023-05-21 00:00 | | 98.2 | F | | | temperature_standar | | | | | d | | | + + + +---------+ | 2023-05-21 00:00 | weight_metric | 84.82 | kg | + + + +---------+ | 2023-05-21 00:00 | weight_standard | 187 | lb | + + + +---------+ | 2023-05-23 00:00 | BMI | 33.1 | kg/m2 | + + + +---------+ | 2023-05-23 00:00 | height_metric | 160.02 | cm | + + + +---------+ | 2023-05-23 00:00 | height_standard | 63 | in | + + + +---------+ | 2023-05-23 00:00 | weight_metric | 84.82 | kg | + + + +---------+ | 2023-05-23 00:00 | weight_standard | 187 | lb | + + + +---------+ | 2023-05-24 00:00 | BP_diastolic | 71 | mmHg | + + + +---------+ | 2023-05-24 00:00 | BP_systolic | 123 | mmHg | + + + +---------+ | 2023-05-24 00:00 | heart_rate | 91 | /min | + + + +---------+ | 2023-05-24 00:00 | o2_saturation | 98 | % | + + + +---------+ | 2023-05-24 00:00 | respiration_rate | 17 | /min | + + + +---------+ | 2023-05-24 00:00 | temperature_metric | 36.78 | C | | | | | | + + + +---------+ | 2023-05-24 00:00 | | 98.2 | F | | | temperature_standar | | | | | d | | | + + + +---------+"
--- OUTSIDE RECORDS SUMMARY | ~2023-05-25 | XMS | Continuity of Care Document ---
Demographics + + + | Address | [address] | | | [place] [address] | + + + | Preferred Language | Unknown | + + + | Marital Status | | + + + | Sabianism Affiliation | Unknown | + + + | Race | White | + + + | Ethnic Group | Not or | + + + Author + + + | Author | [place] | + + + | Organization | [place] | + + + | Address | [address] | | | [place] [address] | + + + | Phone | | + + + Care Team Providers + + + + | [employer] Name | Role | Phone | + [...] | (no date) | Naproxen | [facility] | (unknown) | | | | Hospital | | + + + + + | (no date) | Pregabalin | [facility] | (unknown) | | | | Hospital | | + + + + + | (no date) | pregabalin | [facility] | (unknown) | | | | Hospital | | + + + + + | (no date) | Rofecoxib | [facility] | (unknown) | | | | Hospital | | + + + + + | (no date) | rofecoxib | [facility] | (unknown) | | | | Hospital | | + + + + + | (no date) | Lisinopril | [facility] | (unknown) | | | | Hospital | | + + + + + | (no date) | lisinopril | [facility] | (unknown) | | | | [facility] | | + + + + + | (no date) | Memantine | [facility] | (unknown) | | | | [facility] | | + + + + + | (no date) | Pregabalin | [facility] | (unknown) | | | | [facility] | | + + + + + | (no date) | Adhesive agent | [facility] | (unknown) | | | | Hospital | | + + + + + | (no date) | Pregabalin | [facility] | (unknown) | | | | [facility] | | + + + + + | (no date) | Naproxen | [facility] | (unknown) | | | | Hospital | | + + + + + | (no date) | Memantine | [facility] | (unknown) | | | | Hospital | | + + + + + | (no date) | memantine | [facility] | (unknown) | | | | Hospital | | + + + + + | (no date) | Naproxen | [facility] | (unknown) | | | | Hospital | | + + + + + | (no date) | naproxen | [facility] | (unknown) | | | | Hospital | | + + + + + | (no date) | Blistered skin | [facility] ([facility] | | + + + + + | (no date) | Lisinopril | [facility] | (unknown) | | | | Hospital [...] | (no date) | Memantine | [facility] | (unknown) | | | | Hospital | | + + + + + Encounters No information. Functional Status No information. Immunizations No information. Medications + + + + | date | description | facility | + + + + | 2022-05-29 00:00 | FLUOXETINE HCL | [facility] | + + + + | 2023-03-06 00:00 | FLUOXETINE HCL | [facility] | + + + + | 2023-03-10 00:00 | FLUOXETINE HCL | [facility] | + + + + | 2023-05-21 00:00 | FLUOXETINE HCL | [facility] | + + + + | 2023-05-24 00:00 | FLUOXETINE HCL | [facility] | + + + + | 2022-05-29 00:00 | PSEUDOEPHEDRINE HCL | [facility] | + + + + | 2023-03-06 00:00 | PSEUDOEPHEDRINE HCL | [facility] | + + + + | 2023-03-10 00:00 | PSEUDOEPHEDRINE HCL | [facility] | + + + + | 2023-05-21 00:00 | PSEUDOEPHEDRINE HCL | [facility] | + + + + | 2023-05-24 00:00 | PSEUDOEPHEDRINE HCL | [facility] | + + + + | 2022-05-29 00:00 | GABAPENTIN | [facility] | + + + + | 2023-03-06 00:00 | GABAPENTIN | [facility] | + + + + | 2023-03-10 00:00 | GABAPENTIN | [facility] | + + + + | 2023-05-21 00:00 | GABAPENTIN | [facility] | + + + + | 2023-05-24 00:00 | GABAPENTIN | [facility] | + + + + | 2023-03-06 00:00 | Olopatadine HCl | [facility] | + + + + | 2023-03-10 00:00 | Olopatadine HCl | [facility] | + + + + | 2023-05-21 00:00 | Olopatadine HCl | [facility] | + + + + | 2023-05-24 00:00 | Olopatadine HCl | [facility] | + + + + | 2022-05-29 00:00 | OLOPATADINE HCL 0.1% | [facility] | + + + + | 2023-03-06 00:00 | OLOPATADINE HCL 0.1% | [facility] | + + + + | 2022-05-29 00:00 | DOCUSATE SODIUM | [facility] | + + + + | 2023-03-06 00:00 | DOCUSATE SODIUM | [facility] | + + + + | 2023-03-10 00:00 | DOCUSATE SODIUM | [facility] | + + + + | 2023-05-21 00:00 | DOCUSATE SODIUM | [facility] | + + + + | 2023-05-24 00:00 | DOCUSATE SODIUM | [facility] | + + + + | 2014-07-07 00:00 | HYDROCODONE | [facility] | | | BIT/ACETAMINOPHEN | | + + + + | 2014-07-07 00:00 | HYDROCODONE | [facility] | | | BIT/ACETAMINOPHEN | | + + + + | 2022-05-29 00:00 | APIXABAN | [facility] | + + + + | 2023-03-06 00:00 | APIXABAN | [facility] | + + + + | 2023-03-10 00:00 | APIXABAN | [facility] | + + + + | 2023-05-21 00:00 | APIXABAN | [facility] | + + + + | 2023-05-24 00:00 | APIXABAN | [facility] | + + + + | 2022-05-29 00:00 | ATENOLOL | [facility] | + + + + | 2023-03-06 00:00 | ATENOLOL | [facility] | + + + + | 2023-03-10 00:00 | ATENOLOL | [facility] | + + + + | 2023-05-21 00:00 | ATENOLOL | [facility] | + + + + | 2023-05-24 00:00 | ATENOLOL | [facility] | + + + + | 2022-05-29 00:00 | MONTELUKAST SODIUM | [facility] | + + + + | 2023-03-06 00:00 | MONTELUKAST SODIUM | [facility] | + + + + | 2023-03-10 00:00 | MONTELUKAST SODIUM | [facility] | + + + + | 2023-05-21 00:00 | MONTELUKAST SODIUM | [facility] | + + + + | 2023-05-24 00:00 | MONTELUKAST SODIUM | [facility] | + + + + | 2022-05-29 00:00 | TRIAMCINOLONE ACET | [facility] | + + + + | 2023-03-06 00:00 | TRIAMCINOLONE ACET | [facility] | + + + + | 2023-03-10 00:00 | TRIAMCINOLONE ACET | [facility] | + + + + | 2023-05-21 00:00 | TRIAMCINOLONE ACET | [facility] | + + + + | 2023-05-24 00:00 | TRIAMCINOLONE ACET | [facility] | + + + + | 2022-05-29 00:00 | FLUTICASONE PROPIONATE | [facility] | + + + + | 2023-03-06 00:00 | FLUTICASONE PROPIONATE | [facility] | + + + + | 2023-03-10 00:00 | FLUTICASONE PROPIONATE | [facility] | + + + + | 2023-05-21 00:00 | FLUTICASONE PROPIONATE | [facility] | + + + + | 2023-05-24 00:00 | FLUTICASONE PROPIONATE | [facility] | + + + + | 2020-01-02 00:00 | IBUPROFEN | [facility] | + + + + | 2020-01-02 00:00 | IBUPROFEN | [facility] | + + + + | 2022-05-29 00:00 | NIFEDIPINE | [facility] | + + + + | 2020-01-02 00:00 | ACETAMINOPHEN | [facility] | + + + + | 2020-01-02 00:00 | ACETAMINOPHEN | [facility] | + + + + | 2022-05-29 00:00 | ASPIRIN | [facility] | + + + + | 2023-03-06 00:00 | ASPIRIN | [facility] | + + + + | 2023-03-10 00:00 | ASPIRIN | [facility] | + + + + | 2023-05-21 00:00 | ASPIRIN | [facility] | + + + + | 2023-05-24 00:00 | ASPIRIN | [facility] | + + + + | 2022-05-29 00:00 | CHOLECALCIFEROL (VITAMIN | [facility] | | | D3) | | + + + + | 2023-03-06 00:00 | CHOLECALCIFEROL (VITAMIN | [facility] | | | D3) | | + + + + | 2023-03-10 00:00 | CHOLECALCIFEROL (VITAMIN | [facility] | | | D3) | | + + + + | 2022-05-29 00:00 | FUROSEMIDE | [facility] | + + + + | 2023-03-06 00:00 | FUROSEMIDE | [facility] | + + + + | 2023-03-10 00:00 | FUROSEMIDE | [facility] | + + + + | 2023-05-21 00:00 | FUROSEMIDE | [facility] | + + + + | 2023-05-24 00:00 | FUROSEMIDE | [facility] | + + + + | 2022-05-29 00:00 | CLOPIDOGREL BISULFATE | [facility] | + + + + | 2023-03-06 00:00 | CLOPIDOGREL BISULFATE | [facility] | + + + + | 2023-03-10 00:00 | CLOPIDOGREL BISULFATE | [facility] | + + + + | 2023-05-21 00:00 | CLOPIDOGREL BISULFATE | [facility] | + + + + | 2023-05-24 00:00 | CLOPIDOGREL BISULFATE | [facility] | + + + + | 2022-02-22 00:00 | CEPHALEXIN | [facility] | + + + + | 2022-05-29 00:00 | FLUOXETINE HCL | [facility] | + + + + | 2023-03-06 00:00 | FLUOXETINE HCL | [facility] | + + + + | 2023-03-10 00:00 | FLUOXETINE HCL | [facility] | + + + + | 2023-05-21 00:00 | FLUOXETINE HCL | [facility] | + + + + | 2023-05-24 00:00 | FLUOXETINE HCL | [facility] | + + + + | 2022-05-29 00:00 | ATORVASTATIN | [facility] | + + + + | 2023-03-06 00:00 | ATORVASTATIN | [facility] | + + + + | 2023-03-10 00:00 | ATORVASTATIN | [facility] | + + + + | 2023-05-21 00:00 | ATORVASTATIN | [facility] | + + + + | 2023-05-24 00:00 | ATORVASTATIN | [facility] | + + + + | 2022-05-29 00:00 | POTASSIUM CHLORIDE | [facility] | + + + + | 2023-03-06 00:00 | POTASSIUM CHLORIDE | [facility] | + + + + | 2023-03-10 00:00 | POTASSIUM CHLORIDE | [facility] | + + + + | 2023-05-21 00:00 | POTASSIUM CHLORIDE | [facility] | + + + + | 2023-05-24 00:00 | POTASSIUM CHLORIDE | [facility] | + + + + | 2023-03-06 00:00 | POTASSIUM CHLORIDE | [facility] | + + + + | 2023-03-10 00:00 | POTASSIUM CHLORIDE | [facility] | + + + + | 2023-05-21 00:00 | POTASSIUM CHLORIDE | [facility] | + + + + | 2023-05-24 00:00 | POTASSIUM CHLORIDE | [facility] | + + + + | 2022-05-29 00:00 | CHOLECALCIFEROL (VITAMIN | [facility] | | | D3) | | + + + + | 2022-05-29 00:00 | CALCIUM CARBONATE/VITAMIN | [facility] | | | D3 | | + + + + | 2023-03-06 00:00 | CALCIUM CARBONATE/VITAMIN | [facility] | | | D3 | | + + + + | 2023-03-10 00:00 | CALCIUM CARBONATE/VITAMIN | [facility] | | | D3 | | + + + + | 2023-05-21 00:00 | CALCIUM CARBONATE/VITAMIN | [facility] | | | D3 | | + + + + | 2023-05-24 00:00 | CALCIUM CARBONATE/VITAMIN | [facility] | | | D3 | | + + + + | 2022-05-29 00:00 | TRAMADOL HCL | [facility] | + + + + | 2023-03-06 00:00 | TRAMADOL HCL | [facility] | + + + + | 2023-03-10 00:00 | TRAMADOL HCL | [facility] | + + + + | 2023-05-21 00:00 | TRAMADOL HCL | [facility] | + + + + | 2023-05-24 00:00 | TRAMADOL HCL | [facility] | + + + + | 2019-10-03 00:00 | TRAMADOL HCL | [facility] | + + + + | 2019-10-03 00:00 | TRAMADOL HCL | [facility] | + + + + | 2023-05-21 00:00 | HYDROCODONE | [facility] | | | BIT/ACETAMINOPHEN | | + + + + | 2023-05-23 00:00 | HYDROCODONE | [facility] | | | BIT/ACETAMINOPHEN | | + + + + | 2022-05-29 00:00 | ROSUVASTATIN CALCIUM | [facility] | + + + + | 2023-03-06 00:00 | ROSUVASTATIN CALCIUM | [facility] | + + + + | 2023-03-10 00:00 | ROSUVASTATIN CALCIUM | [facility] | + + + + | 2023-05-21 00:00 | ROSUVASTATIN CALCIUM | [facility] | + + + + | 2023-05-24 00:00 | ROSUVASTATIN CALCIUM | [facility] | + + + + | 2022-05-29 00:00 | METFORMIN HCL | [facility] | + + + + | 2023-03-06 00:00 | METFORMIN HCL | [facility] | + + + + | 2023-03-10 00:00 | METFORMIN HCL | [facility] | + + + + | 2023-05-21 00:00 | METFORMIN HCL | [facility] | + + + + | 2023-05-24 00:00 | METFORMIN HCL | [facility] | + + + + 2023-03-06 00:00 | METOPROLOL SUCCINATE | [facility] | + + + + | 2023-03-10 00:00 | METOPROLOL SUCCINATE | [facility] | + + + + | 2023-05-21 00:00 | METOPROLOL SUCCINATE | [facility] | + + + + | 2023-05-24 00:00 | METOPROLOL SUCCINATE | [facility] | + + + + | 2022-05-29 00:00 | Steffanie QUIROS & | [facility] | | | E/LUTEIN/MINERALS | | + + + + | 2020-01-02 00:00 | HYDROMORPHONE HCL | [facility] | + + + + | 2020-01-02 00:00 | HYDROMORPHONE HCL | [facility] | + + + + | 2022-05-29 00:00 | HYDROMORPHONE HCL | [facility] | + + + + | 2023-03-06 00:00 | HYDROMORPHONE HCL | [facility] | + + + + | 2023-03-10 00:00 | HYDROMORPHONE HCL | [facility] | + + + + | 2023-05-21 00:00 | HYDROMORPHONE HCL | [facility] | + + + + | 2023-05-24 00:00 | HYDROMORPHONE HCL | [facility] | + + + + | 2022-05-29 00:00 | LOSARTAN POTASSIUM | [facility] | + + + + | 2022-05-29 00:00 | MEMANTINE HCL | [facility] | + + + + | 2023-03-06 00:00 | MEMANTINE HCL | [facility] | + + + + | 2023-03-10 00:00 | MEMANTINE HCL | [facility] | + + + + | 2023-05-21 00:00 | MEMANTINE HCL | [facility] | + + + + | 2023-05-24 00:00 | MEMANTINE HCL | [facility] | + + + + | 2022-05-29 00:00 | FEXOFENADINE HCL | [facility] | + + + + | 2023-03-06 00:00 | FEXOFENADINE HCL | [facility] | + + + + | 2023-03-10 00:00 | FEXOFENADINE HCL | [facility] | + + + + | 2023-05-21 00:00 | FEXOFENADINE HCL | [facility] | + + + + | 2023-05-24 00:00 | FEXOFENADINE HCL | [facility] | + + + + | 2022-05-29 00:00 | FEXOFENADINE HCL | [facility] | + + + + | 2023-03-06 00:00 | FEXOFENADINE HCL | [facility] | + + + + | 2023-03-10 00:00 | FEXOFENADINE HCL | [facility] | + + + + | 2023-05-21 00:00 | FEXOFENADINE HCL | [facility] | + + + + | 2023-05-24 00:00 | FEXOFENADINE HCL | [facility] | + + + + Problems + + + + | date | description | facility | + + + + | 2019-02-21 00:00 | Chest wall pain | [facility] | + + + + | 2019-02-21 00:00 | Chest wall pain | [facility] | + + + + | 2019-02-21 00:00 | Chest pain | [facility] | + + + + | 2019-02-21 00:00 | Chest pain | [facility] | + + + + | 2019-10-03 00:00 | Fall | [facility] | + + + + | 2019-10-03 00:00 | Fall | [facility] | + + + + | 2021-02-04 00:00 | Atrial fibrillation with | [facility] | | | controlled ventricular rate | | | | | | + + + + | 2021-02-04 00:00 | Atrial fibrillation with | [facility] | | | controlled ventricular rate | | | | | | + + + + | 2022-02-16 00:00 | Patient left without being | [facility] | | | seen | | + + + + | 2022-02-16 00:00 | Patient left without being | [facility] | | | seen | | + + + + | 2022-02-22 00:00 | Urinary tract infection | [facility] | + + + + | 2022-02-22 00:00 | Urinary tract infection | [facility] | + + + + | 2022-02-22 00:00 | Vertigo | [facility] | + + + + | 2022-02-22 00:00 | Vertigo | [facility] | + + + + | 2022-02-22 14:31 | Essential (primary) | [facility] | | | hypertension | | + + + + | 2022-02-22 14:31 | URINARY TRACT INFECTION, | [facility] | | | SITE NOT SPECIFIED | | + + + + | 2022-02-22 14:31 | Dizziness and giddiness | [facility] | + + + + | 2022-02-22 14:31 | HALFWAY (CURRENT) USE OF | [facility] | | | ORAL HYPOGLYCEMIC DRUGS | | + + + + | 2022-02-22 14:31 | OTHER PROJECT LANDSCAPE ARCHITECT (CURRENT) | [facility] | | | DRUG [...] + + + | 2023-03-01 05:55 | HALFWAY (CURRENT) USE OF | [facility] | | | ANTICOAGULANTS | | + + + + | 2023-03-01 05:55 | OTHER HALFWAY (CURRENT) | [facility] | | | DRUG [...] + + | 2023-03-06 09:01 | OTHER HALFWAY (CURRENT) | [facility] | | | DRUG [...] 2023-05-21 00:00 | Fracture of posterior | [facility] | | | malleolus | | + + + + | 2023-05-21 00:00 | Closed fracture of fibula | [facility] | + + + + | 2023-05-21 00:00 | Tear of deltoid ligament | [facility] | | | of right ankle [...] + + | 2023-05-21 20:22 | OTHER PROJECT LANDSCAPE ARCHITECT (CURRENT) | [facility] | | | DRUG [...] + + + | 2023-05-23 22:34 | PROJECT LANDSCAPE ARCHITECT (CURRENT) USE OF | [facility] | | | ANTICOAGULANTS | | + + + + | 2023-05-23 22:34 | OTHER HALFWAY (CURRENT) | [facility] | | | DRUG [...] | (unknown) | | | | | [place] | value) | unknown) | | | [...]
--- OUTSIDE RECORDS SUMMARY | ~2023-05-25 | XMS | Continuity of Care Document ---
Demographics + + + | Address | [address] | | | [place] [address] | + + + | Preferred Language | Unknown | + + + | Marital Status | | + + + | Advent Affiliation | Unknown | + + + | Race | White | + + + | Ethnic Group | Not or | + + + Author + + + | Author | [place] | + + + | Organization | [place] | + + + | Address | [address] | | | [place] [address] | + + + | Phone | | + + + Care Team Providers + + + + | Care Bag Bundler Name | Role | Phone | + [...] | (no date) | Naproxen | [facility] (unknown[facility] | | + + + + + | (no date) | Pregabalin | [facility] (unknown) | | | | [facility] | | + + + + + | (no date) | pregabalin | [facility] (unknown[facility] | | + + + + + | (no date) | Rofecoxib | [facility] (unknown) [facility] | | + + + + + | (no date) | rofecoxib | [facility] (unknown[facility] | | + + + + + | (no date) | Lisinopril | [facility] (unknown) | | | [facility] | | + + + + + | (no date) | lisinopril | [facility] ([facility] | [facility] | | + + + + + | (no date) | Memantine | [facility] ([facility] | | + + + + + | (no date) | Pregabalin | [facility] ([facility] | | + + + + + | (no date) | Adhesive agent | [facility] ([facility] | | + + + + + | (no date) | Pregabalin | [facility] ([facility] | | + + + + + | (no date) | Naproxen | [facility] (unknown[facility] | | + + + + + | (no date) | Memantine | [facility] (unknown[facility] | | + + + + + | (no date) | memantine | [facility] (unknown[facility] | | + + + + + | (no date) | Naproxen | [facility] (unknown[facility] | | + + + + + | (no date) | naproxen | [facility] (unknown[facility] | | + + + + + | (no date) | Blistered skin | [facility] ([facility] | | + + + + + | (no date) | Lisinopril | [facility] ([facility] | | | | [facility] [...] | (no date) | Memantine | [facility] ([facility] | | [facility] | | + + + + + Encounters No information. Functional Status No information. Immunizations No information. Medications + + + + | date | description | facility | + + + + | 2022-05-29 00:00 | FLUOXETINE HCL | [facility] | + + + + | 2023-03-06 00:00 | FLUOXETINE HCL | [facility] | + + + + | 2023-03-10 00:00 | FLUOXETINE HCL | [facility] | + + + + | 2023-05-21 00:00 | FLUOXETINE HCL | [facility] | + + + + | 2023-05-24 00:00 | FLUOXETINE HCL | [facility] | + + + + | 2022-05-29 00:00 | PSEUDOEPHEDRINE HCL | [facility] | + + + + | 2023-03-06 00:00 | PSEUDOEPHEDRINE HCL | [facility] | + + + + | 2023-03-10 00:00 | PSEUDOEPHEDRINE HCL | [facility] | + + + + | 2023-05-21 00:00 | PSEUDOEPHEDRINE HCL | [facility] | + + + + | 2023-05-24 00:00 | PSEUDOEPHEDRINE HCL | [facility] | + + + + | 2022-05-29 00:00 | GABAPENTIN | [facility] | + + + + | 2023-03-06 00:00 | GABAPENTIN | [facility] | + + + + | 2023-03-10 00:00 | GABAPENTIN | [facility] | + + + + | 2023-05-21 00:00 | GABAPENTIN | [facility] | + + + + | 2023-05-24 00:00 | GABAPENTIN | [facility] | + + + + | 2023-03-06 00:00 | Olopatadine HCl | [facility] | + + + + | 2023-03-10 00:00 | Olopatadine HCl | [facility] | + + + + | 2023-05-21 00:00 | Olopatadine HCl | [facility] | + + + + | 2023-05-24 00:00 | Olopatadine HCl | [facility] | + + + + | 2022-05-29 00:00 | OLOPATADINE HCL 0.1% | [facility] | + + + + | 2023-03-06 00:00 | OLOPATADINE HCL 0.1% | [facility] | + + + + | 2022-05-29 00:00 | DOCUSATE SODIUM | [facility] | + + + + | 2023-03-06 00:00 | DOCUSATE SODIUM | [facility] | + + + + | 2023-03-10 00:00 | DOCUSATE SODIUM | [facility] | + + + + | 2023-05-21 00:00 | DOCUSATE SODIUM | [facility] | + + + + | 2023-05-24 00:00 | DOCUSATE SODIUM | [facility] | + + + + | 2014-07-07 00:00 | HYDROCODONE | [facility] | | | BIT/ACETAMINOPHEN | | + + + + | 2014-07-07 00:00 | HYDROCODONE | [facility] | | | BIT/ACETAMINOPHEN | | + + + + | 2022-05-29 00:00 | APIXABAN | [facility] | + + + + | 2023-03-06 00:00 | APIXABAN | [facility] | + + + + | 2023-03-10 00:00 | APIXABAN | [facility] | + + + + | 2023-05-21 00:00 | APIXABAN | [facility] | + + + + | 2023-05-24 00:00 | APIXABAN | [facility] | + + + + | 2022-05-29 00:00 | ATENOLOL | [facility] | + + + + | 2023-03-06 00:00 | ATENOLOL | [facility] | + + + + | 2023-03-10 00:00 | ATENOLOL | [facility] | + + + + | 2023-05-21 00:00 | ATENOLOL | [facility] | + + + + | 2023-05-24 00:00 | ATENOLOL | [facility] | + + + + | 2022-05-29 00:00 | MONTELUKAST SODIUM | [facility] | + + + + | 2023-03-06 00:00 | MONTELUKAST SODIUM | [facility] | + + + + | 2023-03-10 00:00 | MONTELUKAST SODIUM | [facility] | + + + + | 2023-05-21 00:00 | MONTELUKAST SODIUM | [facility] | + + + + | 2023-05-24 00:00 | MONTELUKAST SODIUM | [facility] | + + + + | 2022-05-29 00:00 | TRIAMCINOLONE ACET | [facility] | + + + + | 2023-03-06 00:00 | TRIAMCINOLONE ACET | [facility] | + + + + | 2023-03-10 00:00 | TRIAMCINOLONE ACET | [facility] | + + + + | 2023-05-21 00:00 | TRIAMCINOLONE ACET | [facility] | + + + + | 2023-05-24 00:00 | TRIAMCINOLONE ACET | [facility] | + + + + | 2022-05-29 00:00 | FLUTICASONE PROPIONATE | [facility] | + + + + | 2023-03-06 00:00 | FLUTICASONE PROPIONATE | [facility] | + + + + | 2023-03-10 00:00 | FLUTICASONE PROPIONATE | [facility] | + + + + | 2023-05-21 00:00 | FLUTICASONE PROPIONATE | [facility] | + + + + | 2023-05-24 00:00 | FLUTICASONE PROPIONATE | [facility] | + + + + | 2020-01-02 00:00 | IBUPROFEN | [facility] | + + + + | 2020-01-02 00:00 | IBUPROFEN | [facility] | + + + + | 2022-05-29 00:00 | NIFEDIPINE | [facility] | + + + + | 2020-01-02 00:00 | ACETAMINOPHEN | [facility] | + + + + | 2020-01-02 00:00 | ACETAMINOPHEN | [facility] | + + + + | 2022-05-29 00:00 | ASPIRIN | [facility] | + + + + | 2023-03-06 00:00 | ASPIRIN | [facility] | + + + + | 2023-03-10 00:00 | ASPIRIN | [facility] | + + + + | 2023-05-21 00:00 | ASPIRIN | [facility] | + + + + | 2023-05-24 00:00 | ASPIRIN | [facility] | + + + + | 2022-05-29 00:00 | CHOLECALCIFEROL (VITAMIN | [facility] | | | D3) | | + + + + | 2023-03-06 00:00 | CHOLECALCIFEROL (VITAMIN | [facility] | | | D3) | | + + + + | 2023-03-10 00:00 | CHOLECALCIFEROL (VITAMIN | [facility] | | | D3) | | + + + + | 2022-05-29 00:00 | FUROSEMIDE | [facility] | + + + + | 2023-03-06 00:00 | FUROSEMIDE | [facility] | + + + + | 2023-03-10 00:00 | FUROSEMIDE | [facility] | + + + + | 2023-05-21 00:00 | FUROSEMIDE | [facility] | + + + + | 2023-05-24 00:00 | FUROSEMIDE | [facility] | + + + + | 2022-05-29 00:00 | CLOPIDOGREL BISULFATE | [facility] | + + + + | 2023-03-06 00:00 | CLOPIDOGREL BISULFATE | [facility] | + + + + | 2023-03-10 00:00 | CLOPIDOGREL BISULFATE | [facility] | + + + + | 2023-05-21 00:00 | CLOPIDOGREL BISULFATE | [facility] | + + + + | 2023-05-24 00:00 | CLOPIDOGREL BISULFATE | [facility] | + + + + | 2022-02-22 00:00 | CEPHALEXIN | [facility] | + + + + | 2022-05-29 00:00 | FLUOXETINE HCL | [facility] | + + + + | 2023-03-06 00:00 | FLUOXETINE HCL | [facility] | + + + + | 2023-03-10 00:00 | FLUOXETINE HCL | [facility] | + + + + | 2023-05-21 00:00 | FLUOXETINE HCL | [facility] | + + + + | 2023-05-24 00:00 | FLUOXETINE HCL | [facility] | + + + + | 2022-05-29 00:00 | ATORVASTATIN | [facility] | + + + + | 2023-03-06 00:00 | ATORVASTATIN | [facility] | + + + + | 2023-03-10 00:00 | ATORVASTATIN | [facility] | + + + + | 2023-05-21 00:00 | ATORVASTATIN | [facility] | + + + + | 2023-05-24 00:00 | ATORVASTATIN | [facility] | + + + + | 2022-05-29 00:00 | POTASSIUM CHLORIDE | [facility] | + + + + | 2023-03-06 00:00 | POTASSIUM CHLORIDE | [facility] | + + + + | 2023-03-10 00:00 | POTASSIUM CHLORIDE | [facility] | + + + + | 2023-05-21 00:00 | POTASSIUM CHLORIDE | [facility] | + + + + | 2023-05-24 00:00 | POTASSIUM CHLORIDE | [facility] | + + + + | 2023-03-06 00:00 | POTASSIUM CHLORIDE | [facility] | + + + + | 2023-03-10 00:00 | POTASSIUM CHLORIDE | [facility] | + + + + | 2023-05-21 00:00 | POTASSIUM CHLORIDE | [facility] | + + + + | 2023-05-24 00:00 | POTASSIUM CHLORIDE | [facility] | + + + + | 2022-05-29 00:00 | CHOLECALCIFEROL (VITAMIN | [facility] | | | D3) | | + + + + | 2022-05-29 00:00 | CALCIUM CARBONATE/VITAMIN | [facility] | | | D3 | | + + + + | 2023-03-06 00:00 | CALCIUM CARBONATE/VITAMIN | [facility] | | | D3 | | + + + + | 2023-03-10 00:00 | CALCIUM CARBONATE/VITAMIN | [facility] | | | D3 | | + + + + | 2023-05-21 00:00 | CALCIUM CARBONATE/VITAMIN | [facility] | | | D3 | | + + + + | 2023-05-24 00:00 | CALCIUM CARBONATE/VITAMIN | [facility] | | | D3 | | + + + + | 2022-05-29 00:00 | TRAMADOL HCL | [facility] | + + + + | 2023-03-06 00:00 | TRAMADOL HCL | [facility] | + + + + | 2023-03-10 00:00 | TRAMADOL HCL | [facility] | + + + + | 2023-05-21 00:00 | TRAMADOL HCL | [facility] | + + + + | 2023-05-24 00:00 | TRAMADOL HCL | [facility] | + + + + | 2019-10-03 00:00 | TRAMADOL HCL | [facility] | + + + + | 2019-10-03 00:00 | TRAMADOL HCL | [facility] | + + + + | 2023-05-21 00:00 | HYDROCODONE | [facility] | | | BIT/ACETAMINOPHEN | | + + + + | 2023-05-23 00:00 | HYDROCODONE | [facility] | | | BIT/ACETAMINOPHEN | | + + + + | 2022-05-29 00:00 | ROSUVASTATIN CALCIUM | [facility] | + + + + | 2023-03-06 00:00 | ROSUVASTATIN CALCIUM | [facility] | + + + + | 2023-03-10 00:00 | ROSUVASTATIN CALCIUM | [facility] | + + + + | 2023-05-21 00:00 | ROSUVASTATIN CALCIUM | [facility] | + + + + | 2023-05-24 00:00 | ROSUVASTATIN CALCIUM | [facility] | + + + + | 2022-05-29 00:00 | METFORMIN HCL | [facility] | + + + + | 2023-03-06 00:00 | METFORMIN HCL | [facility] | + + + + | 2023-03-10 00:00 | METFORMIN HCL | [facility] | + + + + | 2023-05-21 00:00 | METFORMIN HCL | [facility] | + + + + | 2023-05-24 00:00 | METFORMIN HCL | [facility] | + + + + 2023-03-06 00:00 | METOPROLOL SUCCINATE | [facility] | + + + + | 2023-03-10 00:00 | METOPROLOL SUCCINATE | [facility] | + + + + | 2023-05-21 00:00 | METOPROLOL SUCCINATE | [facility] | + + + + | 2023-05-24 00:00 | METOPROLOL SUCCINATE | [facility] | + + + + | 2022-05-29 00:00 | Steffanie QUIROS & | [facility] | | | E/LUTEIN/MINERALS | | + + + + | 2020-01-02 00:00 | HYDROMORPHONE HCL | [facility] | + + + + | 2020-01-02 00:00 | HYDROMORPHONE HCL | [facility] | + + + + | 2022-05-29 00:00 | HYDROMORPHONE HCL | [facility] | + + + + | 2023-03-06 00:00 | HYDROMORPHONE HCL | [facility] | + + + + | 2023-03-10 00:00 | HYDROMORPHONE HCL | [facility] | + + + + | 2023-05-21 00:00 | HYDROMORPHONE HCL | [facility] | + + + + | 2023-05-24 00:00 | HYDROMORPHONE HCL | [facility] | + + + + | 2022-05-29 00:00 | LOSARTAN POTASSIUM | [facility] | + + + + | 2022-05-29 00:00 | MEMANTINE HCL | [facility] | + + + + | 2023-03-06 00:00 | MEMANTINE HCL | [facility] | + + + + | 2023-03-10 00:00 | MEMANTINE HCL | [facility] | + + + + | 2023-05-21 00:00 | MEMANTINE HCL | [facility] | + + + + | 2023-05-24 00:00 | MEMANTINE HCL | [facility] | + + + + | 2022-05-29 00:00 | FEXOFENADINE HCL | [facility] | + + + + | 2023-03-06 00:00 | FEXOFENADINE HCL | [facility] | + + + + | 2023-03-10 00:00 | FEXOFENADINE HCL | [facility] | + + + + | 2023-05-21 00:00 | FEXOFENADINE HCL | [facility] | + + + + | 2023-05-24 00:00 | FEXOFENADINE HCL | [facility] | + + + + | 2022-05-29 00:00 | FEXOFENADINE HCL | [facility] | + + + + | 2023-03-06 00:00 | FEXOFENADINE HCL | [facility] | + + + + | 2023-03-10 00:00 | FEXOFENADINE HCL | [facility] | + + + + | 2023-05-21 00:00 | FEXOFENADINE HCL | [facility] | + + + + | 2023-05-24 00:00 | FEXOFENADINE HCL | [facility] | + + + + Problems + + + + | date | description | facility | + + + + | 2019-02-21 00:00 | Chest wall pain | [facility] | + + + + | 2019-02-21 00:00 | Chest wall pain | [facility] | + + + + | 2019-02-21 00:00 | Chest pain | [facility] | + + + + | 2019-02-21 00:00 | Chest pain | [facility] | + + + + | 2019-10-03 00:00 | Fall | [facility] | + + + + | 2019-10-03 00:00 | Fall | [facility] | + + + + | 2021-02-04 00:00 | Atrial fibrillation with | [facility] | | | controlled ventricular rate | | | | | | + + + + | 2021-02-04 00:00 | Atrial fibrillation with | [facility] | | | controlled ventricular rate | | | | | | + + + + | 2022-02-16 00:00 | Patient left without being | [facility] | | | seen | | + + + + | 2022-02-16 00:00 | Patient left without being | [facility] | | | seen | | + + + + | 2022-02-22 00:00 | Urinary tract infection | [facility] | + + + + | 2022-02-22 00:00 | Urinary tract infection | [facility] | + + + + | 2022-02-22 00:00 | Vertigo | [facility] | + + + + | 2022-02-22 00:00 | Vertigo | [facility] | + + + + | 2022-02-22 14:31 | Essential (primary) | [facility] | | | hypertension | | + + + + | 2022-02-22 14:31 | URINARY TRACT INFECTION, | [facility] | | | SITE NOT SPECIFIED | | + + + + | 2022-02-22 14:31 | Dizziness and giddiness | [facility] | + + + + | 2022-02-22 14:31 | [facility] (CURRENT) USE OF | [facility] | | | ORAL HYPOGLYCEMIC DRUGS | | + + + + | 2022-02-22 14:31 | OTHER MIXED CROP FARMER (CURRENT) | [facility] | | | DRUG [...] + + + | 2023-03-01 05:55 | [facility] (CURRENT) USE OF | [facility] | | | ANTICOAGULANTS | | + + + + | 2023-03-01 05:55 | OTHER [facility] (CURRENT) | [facility] | | | DRUG [...] + + | 2023-03-06 09:01 | OTHER [facility] (CURRENT) | [facility] | | | DRUG [...] 2023-05-21 00:00 | Fracture of posterior | [facility] | | | malleolus | | + + + + | 2023-05-21 00:00 | Closed fracture of fibula | [facility] | + + + + | 2023-05-21 00:00 | Tear of deltoid ligament | [facility] | | | of right ankle [...] + + | 2023-05-21 20:22 | OTHER MIXED CROP FARMER (CURRENT) | [facility] | | | DRUG [...] + + + | 2023-05-23 22:34 | MIXED CROP FARMER (CURRENT) USE OF | [facility] | | | ANTICOAGULANTS | | + + + + | 2023-05-23 22:34 | OTHER [facility] (CURRENT) | [facility] | | | DRUG [...]
[~2023-05-25 11:00] MED LIST changes: +HYDROCODON-ACE1 EA10 PO
--- OUTSIDE RECORDS SUMMARY | 2023-05-25 11:03 | XMS ---
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 02/16/2022 12:17 Details: PATIENT LWBS CRITERIA MET - [facility] - 2 Visits in 30 Days - [facility] - Has Care Guidelines CARE PROVIDERS SAHIL CANALES Internal Medicine 02/23/2022-Current PHONE: Unknown David has no Care Guidelines for this patient. Care History Medical/Surgical 02/23/2022 [facility] Patient has follow up visit with Dr. Canales on 03/05/22. No current/recent ER records in [facility]. 02/23/2022 [facility] - Patient is currently established with [facility]. If patient is seen in the ED during business hours. Please contact CHWs at [facility]. Care Recommendation: If this patient has had 5 or more Emergency Department visits in the last 12 months.\T\nbsp;Patient will require education on the scope and purpose of the ED as an acute care provider not a Primary Care Provider and should not be utilized for chronic conditions.\T\nbsp; These are guidelines and the provider should exercise clinical judgment when providing care. E.D. VISIT COUNT (12 MO.) 3 GLORIA To TOTAL 3 NOTE: Visits indicate total known visits. ED/UCC VISIT TRACKING (12 MO.) 05/25/2023 11:00 [facility] [place] TYPE: Emergency COMPLAINT: - POSS FX FIBULA 05/23/2023 22:34 [facility] [place] TYPE: Emergency COMPLAINT: - LEG PAIN/ NO INJ DIAGNOSES: - Allergy status to other drugs, medicaments and biological substances - Allergy status to sulfonamides - Essential (primary) hypertension - long term care pharmacist (current) use of anticoagulants - Other fracture of right lower leg, initial encounter for closed fracture - Other fracture of upper and lower end of right fibula, initial encounter for closed fracture - Other fdc (current) drug therapy - Other nonmedicinal substance allergy status - Personal history of nicotine dependence - Unspecified fall, initial encounter 05/21/2023 20:22 [facility] [place] TYPE: Emergency COMPLAINT: - FALL DIAGNOSES: - Allergy status to other drugs, medicaments and biological substances - Allergy status to sulfonamides - Essential (primary) hypertension - Fall on same level from slipping, tripping and stumbling without subsequent striking against object, initial encounter - Other fracture of right lower leg, initial encounter for closed fracture - Other fracture of upper and lower end of right fibula, initial encounter for closed fracture - Other fdc (current) drug therapy - Other nonmedicinal substance allergy status - Personal history of nicotine dependence - Prediabetes INPATIENT VISIT TRACKING (12 MO.) 03/06/2023 09:01 [facility] [place] TYPE: Medical Surgical COMPLAINT: - TC/CONTINUED CARE DIAGNOSES: - Allergy status to other drugs, medicaments and biological substances - Allergy status to other drugs, medicaments and biological substances - Allergy status to sulfonamides - Allergy status to sulfonamides - Contact with and (suspected) exposure to COVID-19 - Contact with and (suspected) exposure to COVID-19 - Disorientation, unspecified - Essential (primary) hypertension - Essential (primary) hypertension - Hyperlipidemia, unspecified - Hyperlipidemia, unspecified - Lichen sclerosus et atrophicus - Lichen sclerosus et atrophicus - Major depressive disorder, single episode, unspecified - Major depressive disorder, single episode, unspecified - Other fdc (current) drug therapy - Other fdc (current) drug therapy - Other nonmedicinal substance allergy status - Other nonmedicinal substance allergy status - Type 2 diabetes mellitus with diabetic peripheral angiopathy without gangrene - Type 2 diabetes mellitus with diabetic peripheral angiopathy without gangrene - Unspecified atrial fibrillation - Unspecified atrial fibrillation 03/01/2023 05:55 [facility] [place] TYPE: Medical Surgical COMPLAINT: - COLPOCLEISIS DIAGNOSES: - Acquired absence of both cervix and uterus - Acquired absence of both cervix and uterus - Allergy status to analgesic agent - Allergy status to analgesic agent - Allergy status to other antibiotic agents - Allergy status to other antibiotic agents - Allergy status to other drugs, medicaments and biological substances - Allergy status to other drugs, medicaments and biological substances - Anemia, unspecified - Anemia, unspecified - Cystocele, midline - Cystocele, unspecified - Depression, unspecified - Disorder of kidney and ureter, unspecified - Disorder of kidney and ureter, unspecified - Essential (primary) hypertension - Essential (primary) hypertension - Hyperlipidemia, unspecified - Hyperlipidemia, unspecified - Lichen sclerosus et atrophicus - Lichen sclerosus et atrophicus - long term care pharmacist (current) use of anticoagulants - long term care pharmacist (current) use of anticoagulants - Major depressive disorder, single episode, unspecified - Major depressive disorder, single episode, unspecified - Obstructive sleep apnea (adult) (pediatric) - Obstructive sleep apnea (adult) (pediatric) - Other fdc (current) drug therapy - Other fdc (current) drug therapy - Other specified postprocedural states - Other specified postprocedural states - Peripheral vascular disease, unspecified - Personal history of nicotine dependence - Personal history of nicotine dependence - Rectocele - Type 2 diabetes mellitus with diabetic peripheral angiopathy without gangrene - Type 2 diabetes mellitus with diabetic peripheral angiopathy without gangrene - Type 2 diabetes mellitus without complications - Unspecified atrial fibrillation - Unspecified osteoarthritis, unspecified site - Unspecified osteoarthritis, unspecified site - Vaginal enterocele - Vaginal enterocele - Vitamin D deficiency, unspecified - Vitamin D deficiency, unspecified [email or web address]
--- NOTE | 2023-05-25 14:00 | NUR ---
RECEIVED REPORT FROM CECILIA WEST RN. PERFORMED PT ASSESSMENT. CALL LIGHT WITHIN REACH. NO FURTHER NEEDS VOICED.
[2023-05-25 14:02] VITALS: BP 97/65
--- NOTE | 2023-05-25 15:30 | NUR ---
CALLED DR. VARELA ABOUT IV ABX THAT WERE GIVEN IN THE ED TODAY THAT WERE SUPPOSSED TO BE GIVEN PRIOR TO SURGERY. INSTRUCTED TO REORDER THE ABX FOR TOMORROW.
--- NOTE | 2023-05-25 15:33 | NUR ---
pt call light answered. pt wishes to get back to bed from bsc. pt back to bed 1 pa w fww stand pivot. bsc emptied. leg elevated. pt co edema in r leg. rn notified. no needs. call light within reach
--- NOTE | 2023-05-25 15:45 | NUR ---
PT C/O RIGHT TOE NUMBNESS AND EDEMA. MILD PEDAL EDEMA NOTED. PALPABLE 2+ PEDAL PULSE NOTED. PT ABLE TO MOVE TOES. CONTINUE TO MONITOR
[2023-05-25 16:09] VITALS: BP 118/46
--- NOTE | 2023-05-25 16:30 | NUR ---
CALLED DR. VARELA TO REPORT PTS LOW BP AND ASK ABOUT HOME MEDICATION ORDERS. ORDER GIVEN FOR IV FLUIDS. HOSPITALIST CONSULTED FOR HOME MEDICATIONS.
--- NOTE | 2023-05-25 16:48 | NUR ---
pt granddaughter josias called. she wanted to be transferred into pts room. pt is unavalible and is speaking to md. granddaughter notified pt is uanable to talk at the moment but she will be informed she had called
[2023-05-25 18:09] VITALS: BP 146/62
--- NOTE | 2023-05-25 18:09 | NUR ---
Spoke with Flor. She was here in February for extensive bladder issues. She lives in a house in [place] with her spouse. He has had quintana and have issues with ambulation. Pt has two steps into her home. She has hand rails and also has a ramp into the back ofher home. She uses a walker and has a four wheel and a 2 wheel. She also has a cane. She states she needs CPAP, but it was recalled 2 years ago and has never been replaced. I will contact [place] tomorrow and family state she has significant sleep apnea. Family also state pt did not tolerate anesthesia with her surgery in February and took 3 days to fully awaken. I encouraged them to tell Dr. Funez. I will leave a note on the chart about her sleep apnea and poor tolerance for anesthesia. We discussed Dr. Funez note shows pt will need a SNF on dc. Let her know he prefers [facility]. She and family would like [place] as she they are concerned, spouse will attempt to drive to [place] if she is placed there. Let her know I will send her chart tomorrow to T when I have more info. She denies any financial issues and does not use any outside resources. Plan is for dc to SNF when cleared medially.
--- NOTE | 2023-05-25 19:43 | NUR ---
REPORT RECEIVED FROM DAY SHIFT RN. PT RESTING IN BED. FAMILY VISITING. SAFETY PRECAUTIONS MAINTAINED. CALL LIGHT WITHIN REACH. WILL CONTINUE TO MONITOR.
[2023-05-25 20:46] VITALS: BP 131/69
--- NOTE | 2023-05-25 21:00 | NUR ---
PT ASSESSED AND MEDICATIONS GIVEN. NORCO GIVEN FOR PAIN. RLE ELEVATED ON PILLOWS. PUREWICK IN PLACE. SAFETY PRECAUTIONS MAINTAINED. CALL LIGHT WITHIN REACH. WILL CONTINUE TO MONITOR.
--- NOTE | 2023-05-25 23:35 | EKG ---
[facility] [address] [place] [address] Signed Atrial fibrillation Abnormal ECG When compared with ECG of 20-FEB-2023 14:50, Nonspecific T wave abnormality no longer evident in Anterior leads Confirmed by Josi Regan MD () on 05/25/2023 11:34:55 PM Electronically Signed By: JOSI REGAN MD 05/25/23 [id number] PATIENT NAME: STEVIE HENLEY JACK Electrocardiogram DATE OF : 45 PHYSICIAN: JOSI REGAN MD REPORT #: [id number] REPORT IS CONFIDENTIAL AND NOT TO BE RELEASED WITHOUT AUTHORIZATION
[2023-05-26] VITALS (9 sets, daily range): BP systolic 105–152; BP diastolic 68–101
--- NOTE | 2023-05-26 02:39 | NUR ---
Did a wipe down for surgery this morning. Changed gown and bedding. Elevated right foot. Brought her a warm blanket and call light is within reach.
--- NOTE | 2023-05-26 03:14 | NUR ---
IV PUMP ALARMING, ISSUE RESOLVED. IV SITE WNL, FLUIDS INFUSING DIRECTED. pt NPO FOR AM PROCEDURE, PRN ACCUCHECK COMPLETED AND RESULT WNL. RESULT OF 104. NO NEEDS OR CONCERNS VERBALIZED, CALL LIGHT IN REACH.
--- NOTE | 2023-05-26 06:21 | NUR ---
THE OR NURSE JUST CAME TO RECORDS ADMINISTRATOR PT AND TRANSFER THEM TO THE OR. PT HAD BEEN NPO SINCE MIDNIGHT. IVF INFUSING THROUHGOUT SHIFT. NORCO GIVEN ONCE FOR PAIN AT THE BEGINNING OF THE SHIFT. PT RESTED SOME. SAFETY PRECAUTIONS MAINTAINED.
--- NOTE | 2023-05-26 06:23 | NUR ---
pt TAKEN OFF FLOOR AT THIS TIME BY CONCRETE PUMP OPERATOR HELPERMARLENI WICK, pt TO GO TO SURGERY. WATERPROOFING MACHINE OPERATOR TO OR MEDS GIVEN TO MARLENI WICK.
--- NOTE | 2023-05-26 07:08 | NUR ---
RECEIVED REPORT FROM SLASHER HAND RN. PT IN SURGERY NOW. IN ROOM.
--- NOTE | 2023-05-26 08:24 | NUR ---
05/26/23 0824 Demetrice Funez [id number] PT TO PACU SLEEPING ORAL AIWAY IN PLACE, O2 VIA MASK AT 6L, FOGGING NOTED IN MASK,
--- NOTE | 2023-05-26 09:30 | NUR ---
PT BACK FROM SURGERY. A&OX4. DENIES PAIN. PERFORMED PT ASSESSMENT. DENIES FURTHER NEEDS AT THE MOMENT. CALL LIGHT WITHIN REACH.
--- NOTE | 2023-05-26 11:43 | NUR ---
PATIENT RETURNED TO ROOM FROM OR. UPDATE RECVD FROM FABIOLA RN THAT PATIENT WISHES TO DISCHARGE TO [facility] FOR ONGOING PT. CHART NOTES AND DEMOGRAPHICS FAXED TO [facility] AT [facility] FOR REVIEW.
--- NOTE | 2023-05-26 11:51 | NUR ---
PT IN BED. ABLE TO CONVERSE. EXPRESSED DESIRE FOR READING MATERIAL. GAVE GUIDEPOST. PT INDICATED SHE "HAS THE ITCHIES." I RELAYED THIS INFORMATION TO MS CHARGE AND TO PT RN. BOTH INDICATED PT HAD COMMUNICATED THE SAME TO THEM. PT ASKED FOR PRAYER WHICH I OFFERED.
--- NOTE | 2023-05-26 17:05 | NUR ---
MED REC COMPLETE
--- NOTE | 2023-05-26 19:16 | NUR ---
BEDSIDE REPORT RECEIVED FROM CRISTINA YEPEZ, PT AWAKE AND ALERT, WITHOUT COMPLAINTS AT THIS TIME.
--- NOTE | 2023-05-26 20:15 | NUR ---
PT AWAKE AND ALERT, VS STABLE, AFEBRILE, ASSESSMENT COMPLETED, NOTED RIGHT LEG IN BOOT, ABLE TO WIGGLE TOES, PEDEL PULSES PALPABLE AND STRONG, ELEVATED ON PILLOW WITH ICE BAG TO ANKLE, PT DENIES PAIN AT THIS TIME, SL IN LEFT AC FLUSHES WELL, WITHOUT PAIN OR SWELLING, SIDE RAILS UP X 4, BED ALARM ON, , ACCUCHECK 195, 3 UNITS HUMOLOG SQ GIVEN PER ORDER.
--- NOTE | 2023-05-26 20:38 | NUR ---
PT C/O REMAINING ITCHING, GENERALIZED, MEDICATED WITH BENADRYL 25MG PO PER ORDER.
--- NOTE | 2023-05-26 23:00 | NUR ---
PT NOTED ATTEMPTING TO GET OUT OF BED, PT STATES SHE WAS GOING TO GET UP TO CLOSE THE DOOR, PT ENCOURAGED TO CALL RN FOR ASSIST, PT DESIRES TO GO TO BSC, 1PA TO BSC, VOIDED 450ML YELLOW URINE, BOOT TO RIGHT LEG IN PLACE AND STRAPS TIGHTENED PRIOR TO TRANSFER, PT TOLERATED TRANFER FAIRLY WELL, AMIRAH TO BED, RESTING WITHOUT COMPLAINTS OF PAIN.
--- NOTE | 2023-05-27 00:10 | NUR ---
PT REMAINS AWAKE, ANCEF A/B GIVEN PER ORDER PER LEFT AC SF, SITE INTACT AND FLUSHES WELL, PT STATES SHE IS HAVING PAIN 7/10 IN RIGHT ANKLE, MEDICATED WITH NORCO 1 TABLET (7.5MG) PER ORDER. PT ATTEMPTING TO REST, LEG REMAINS ELEVATED ON PILLOW, SIDE RAILS UP X [address]
[2023-05-27 01:30] VITALS: BP 139/84
--- NOTE | 2023-05-27 01:30 | NUR ---
PT AWAKEN, VS COMPLETED, PT TOOK OFF SCD FROM LEFT LEG STATING SHE CAN'T TOLERATE WEARING IT AT THIS TIME, PT REPOSITIONED UP IN BED, CMS CHECKS TO RIGHT FOOT INTACT, SOME SWELLING NOTED IN TOES, PEDEL PULSES STRONG, ICE TO ANKLE, BOOT INPLACE, BUT UNSTRAPPED FOR ICE.
--- NOTE | 2023-05-27 03:05 | NUR ---
PT REMAINS AWAKE, WITHOUT COMPLAINTS, ICE TO ANKLE,
--- NOTE | 2023-05-27 04:12 | NUR ---
PT REMAINS AWAKE, PT REQUESTING PAIN MED FOR RIGHT ANKLE PAIN 06/29, PT DESIRES ONLY 1 NORCO 7.5MG AT THIS TIME, MEDICATED PER ORDER. RIGHT LEG REMAINS ELEVATED ON PILLOWS, BOOT IN PLACE, ICE TO SITE.
[2023-05-27 05:17] VITALS: BP 127/68
--- NOTE | 2023-05-27 05:31 | NUR ---
PT AWAKE, CHEERFUL, PULLED OFF TELE LEADS, LEADS REPLACED, PT ASSISTED UP TO BSC TO VOID 250 ML YELLOW URINE, BACK TO BED, RIGHT LEG ELEVATED ON PILLOW, LAB IN FOR AM BLOOD DRAWN
--- NOTE | 2023-05-27 07:15 | NUR ---
RECEIVED REPORT FROM PRIMARY SCHOOL TEACHER RN. PT RESTING COMFORTABLY WITH EYES CLOSED. RESPIRATIONS EVEN AND REGULAR. CALL LIGHT WITHIN REACH.
[2023-05-27 08:35] VITALS: BP 133/95
--- NOTE | 2023-05-27 08:36 | NUR ---
WAS CALLED TO ROOM BY ANOTHER RN. PT WITH ADMINISTRATIVE STAFF SUPERVISOR HAD AN ASSISTED FALL. VITAL SIGNS ARE STABLE. NO HEAD INJURY. PT STATES HER RIGHT KNEE BUCKLED AND FELL FROM UNDERNEATH HER LEGS. TWO OTHER RNS HELPED ASSIST PT BACK TO CHAIR. PT DENIES PAIN. WALKER WAS UTILIZED. PT STATES SHE HAS BEEN EXPERIENCING FALLS LIKE THIS AT HOME. PT IN CHAIR WITH LEGS ELEVATED. ICE TO EFFECTED EXTREMITY.
--- NOTE | 2023-05-27 08:48 | NUR ---
SPOKE TO DR. VARELA. WAS INSTRUCTED TO NOTIFY IF PT HAS ADDITIONAL PAIN TO THE RIGHT LOWER EXTREMITY. CONTINUE TO MONITOR. ENSURE AMBULATION OCCURS WITH THE BOOT ON. MODIFIED PAIN MEDICATION ORDERS VERBAL PHONE ORDER.
--- NOTE | 2023-05-27 10:32 | OR ---
[facility] [address], [place] [address] Signed DATE OF OPERATION: 05/26/2023 SURGEON: Jim Funez MD PREOPERATIVE DIAGNOSIS: Displaced fracture, dislocation of right ankle. POSTOPERATIVE DIAGNOSIS: Displaced fracture, dislocation of right ankle. PROCEDURE PERFORMED: Open reduction and internal fixation, right lateral malleolus with syndesmosis fixation. PANTRY GOODS WORKER: None. ANESTHESIA: Spinal. BLOOD LOSS: 50 mL. TOURNIQUET TIME: Zero. IMPLANTS: 3 x 180 FibuLock with two locking screws and a tightrope. BRIEF HISTORY: Flor is a 77-year-old female, who suffered a fall last weekend. She fractured her ankle, which was minimally displaced. She was put in a fracture boot and then initially sent home. She returned to the ER several days later and they took the fracture boot off and placed her in a poorly made splint. On return to the ER again yesterday, her radiograph showed the ankle to be dislocated 50% laterally. Risks and benefits of admission to the hospital, medical clearance and this operative treatment were discussed with her. She elected to proceed. Once consent was obtained she was taken to the operating room. After adequate anesthesia she was placed on operating room table. All downside pressure points well padded. Hip bump was placed in well-padded proximal thigh tourniquet was placed. The leg was prepped and draped in standard sterile fashion. The fibula was outlined using the image intensifier and the fracture was reduced and held Electronically Signed By: JIM FUNEZ MD 05/27/23 1032 PATIENT NAME: FLOR HENLEY OPERATIVE REPORT DATE OF : 45 REPORT #: [id number] PHYSICIAN: JIM FUNEZ MD PCP: CARLTON BOONE MD REPORT IS CONFIDENTIAL AND NOT TO BE RELEASED WITHOUT AUTHORIZATION [facility] [address], [place] [address] Signed with a clamp. Once this was completed, the initial guide pin for the FibuLock system was advanced from the tip of the fibula into the body of the fibula. This was overdrilled using the 6.2 reamer. We then replaced the short guide pin with the long guide ed and reamed the fibula up to 3.1. We elected to go with a long ed to get better fixation. The 3 x 180 ed was then advanced from the tip of the fibula up the body of the fibula proximally. Once it was properly seated at the distal end, the pins were deployed. Two locking screws were placed distally and the syndesmosis was fixed with a tightrope. Final radiographs showed good positioning of the hardware, good reduction of the ankle and good screw lengths. The wounds were copiously irrigated with normal saline, closed with gordon and dressed with Allevyn dressing, ABD and Shant wrap. She was placed back into a fracture boot, taken to recovery room and subsequently to the orthopedic floor. Jim Funez MD BA/SHERICE /[id number] Copies: ~ Electronically Signed By: JIM FUNEZ MD 05/27/23 1032 PATIENT NAME: FLOR HENLEY JACK OPERATIVE REPORT DATE OF : 45 REPORT #: [id number] PHYSICIAN: JIM FUNEZ MD PCP: CARLTON BOONE MD REPORT IS CONFIDENTIAL AND NOT TO BE RELEASED WITHOUT AUTHORIZATION
[2023-05-27 13:59] VITALS: BP 135/66
--- NOTE | 2023-05-27 14:15 | NUR ---
ROUNDED ON PT. GAVE PRN PAIN MEDICATIONS. CALL LIGHT WITHIN REACH NO FURTHER NEEDS VOICED.
[2023-05-27 18:07] VITALS: BP 146/79
--- NOTE | 2023-05-27 18:16 | NUR ---
PT KEEPS TRYING TO GET OUT OF BED WITHOUT ASSISTANCE. NOT USING CALL LIGHT APPROPRIATELY. BED ALARM ON AND IN LOW POSITION. PT INSTRUCTED TO USE THE CALL LIGHT. CALL LIGHT WITHIN REACH. PT DENIES FUTHER NEEDS AT THE TIME.
--- NOTE | 2023-05-27 19:10 | NUR ---
BEDSIDE REPORT RECEIVED FROM CRISTINA YEPEZ, PT RESTING IN BED, WITHOUT REQUESTS AT THIS TIME, BED ALARM ON AND SIDE RAILS UP X 4.
--- NOTE | 2023-05-27 19:55 | NUR ---
PT ASSISTED UP TO BSC WITH 2PA, TOE TOUCH ON RIGHT FOOT, BOOT IN PLACE, UNABLE TO VOID AT THIS TIME, BACK TO BED, VS DONE AND STABLE, ASSESSMENT COMPLETED, PT MEDICATED FOR C/O PAIN IN RIGHT ANKLE 06/29, PT MEDICATED PER ORDER WITH OXYCODONE PER ORDER, FRESH ICE TO RIGHT ANKLE AFTER UPPER STRAPS OF BOOT LOOSENED AND ANTERIOR BRACING REMOVED. FAMILY INTO VISIT PATIENT. SIDE RAILS UP X 4 AND BED ALARM ON.
--- NOTE | 2023-05-27 22:10 | NUR ---
ACCUCHECK DONE AND 150, 1 UNIT HUMOLOG GIVEN SQ GIVEN, PT RESTING QUIETLY.
--- NOTE | 2023-05-27 23:35 | NUR ---
PT RESTING QUIETLY, RESP EVEN AND REG, WITHOUT DISTRESS.
--- NOTE | 2023-05-28 01:50 | NUR ---
PT ASLEEP, RESP EVEN AND REG.
--- NOTE | 2023-05-28 02:23 | NUR ---
PT AWAKE, FOUND TO HAVE PULLED OFF HER TELEMETRY AND SL FOUND ON BEDSIDE TABLE, UNSURE WHEN SHE PULLED THIS OUT, NO BLEEDING NOTED FROM OLD SITE, PT 2PA UP TO BSC, PT VOIDED AND HAD LARGE SOFT LIGHT BROWN STOOL, PT BACK TO BED, REPORTS PAIN 6/10 IN RIGHT ANKLE, MEDICATED WITH OXYCODONE PER ORDER, RIGHT LEG ELEVATED ON PILLOW AND ICE PLACED ON RIGHT ANKLE WHILE BOOT STILL ON, BUT UPPER STRAPS LOOSENED.
[2023-05-28 04:40] VITALS: BP 155/73
--- NOTE | 2023-05-28 04:40 | NUR ---
VS COMPLETED PER [place] [employer] AT THIS TIME, PT WITHOUT REQUESTS.
--- NOTE | 2023-05-28 05:35 | NUR ---
PT AWAKEN FOR ASSESSMENT, PT WITHOUT REQUEST, RIGHT LEG REMAINS ELEVATED ON PILLOW, FRESH ICE PLACED INSIDE FRONT ASPECT OF BOOT, BED ALARM REMAINS ON.
--- NOTE | 2023-05-28 06:35 | NUR ---
PT RESTING, AWAKE, STATES SHE WOULD LIKE TO CALL A FAMILY MEMBER TO COME PICK HER UP TODAY AND THEN SHE COULD RETURN LATER TODAY, PT REORIENTED TO PLACE, PT CHEERFUL, AGREES NOT TO GET OUT OF BED UNLESS NURSE AT BEDSIDE.
--- NOTE | 2023-05-28 06:53 | NUR ---
TC TO DR VARELA TO REPORT PT PULLED OUT HER SL LAST NIGHT, STATES IT IS OK TO NOT HAVE IV ACCESS AT THIS TIME.
[2023-05-28 09:24] VITALS: BP 148/93
--- NOTE | 2023-05-28 13:13 | NUR ---
Patient up in chair, only ate 40% of lunch because she advised that her is going to bring her something to eat. Patient given warm wash cloth to wash her face and hands. Room cleaned up, and bed straightened up. Patient has call light within reach. Blinds opened up so patient could see outside. Patient reading the paper. Denies any other cares at this time.
[2023-05-28 13:43] VITALS: BP 129/60
[2023-05-28 17:50] VITALS: BP 140/62
--- NOTE | 2023-05-28 19:14 | NUR ---
BEDSIDE REPORT RECEIVED FROM CRISTINA RN, PT RESTING IN BED, LOOKING FOR SLIPPERS, RN REMINDS HER TO WAIT FOR RN TO FIND SLIPPERS, PT AGREES, PT RESTING IN BED, BOOT ON RIGHT FOOT AND ELEVATED ON PILLOW, SR UP X 4 AND BED ALARM ON.
[2023-05-28 20:39] VITALS: BP 123/63
--- NOTE | 2023-05-28 20:50 | NUR ---
PT APPEARS TO SLEEP, RESP EVEN AND REG, BED ALARM ON, SIDE RAILS UP X 4, BOOT IN PLACE TO RIGHT LEG.
[2023-05-28 22:00] VITALS: BP 155/77
--- NOTE | 2023-05-28 22:00 | NUR ---
PT ASLEEP, AWAKEN FOR RT MEDS, ASSESSMENT COMPLETED, PT DENIES NEED FOR STRONGER PAIN MED, ONLY RT TYLENOL GIVEN PER ORDER, REPOSITIONED UP IN BED, ICE TO ANKLE AFTER UPPER TWO STRAPS ON BOOT LOOSENED, PER PT REQUEST, LEG REMAINS ELEVATED ON PILLOW, PT DENIES NEED TO VOID AT THIS TIME.
--- NOTE | 2023-05-28 23:40 | NUR ---
PT ASLEEP, RESP EVEN AND REG, WITHOUT DISTRESS.
--- NOTE | 2023-05-29 01:00 | NUR ---
PT ASLEEP, RESP EVEN REG, WITHOUT DISTRESS.
--- NOTE | 2023-05-29 01:14 | NUR ---
PT RESTING IN BED, WAVES TO NURSE WHEN SHE ENTERS ROOM, DENIES NEEDS AT THIS TIME, OXYGEN REMAINS IN PLACE, OXYGEN SATS 94%.
[2023-05-29 02:06] VITALS: BP 151/83
--- NOTE | 2023-05-29 02:28 | NUR ---
VITAL SIGNS TAKEN. 2 PA. PATIENT WAS UP TO BEDSIDE COMMODE. PATIENT VOIDED 300ML DARK URINE. PATIENT IS BACK IN BED. CALL LIGHT WITHIN REACH. BED ALARM ON FOR SAFETY. ICE WATER REFRESHED.
--- NOTE | 2023-05-29 03:10 | NUR ---
PT ASLEEP, RESP EVEN AND REG. BED ALARM ON.
--- NOTE | 2023-05-29 04:15 | NUR ---
PT REMAINS ASLEEP, RESP EVEN AND REG.
[2023-05-29 05:45] VITALS: BP 132/62
--- NOTE | 2023-05-29 06:10 | NUR ---
PT APPEARS TO SLEEP, RESP EVEN AND REG, BED ALARM REMAINS ON, BED LOW POSITION, RIGHT LEG REMAINS ELEVATED ON PILLOW AND IN BOOT.
--- NOTE | 2023-05-29 07:15 | NUR ---
RECEIVED REPORT FROM CONTROL ROOM TENDER RN. PT SLEEPING IN BED WITH EYES CLOSED. RESPIRATIONS EVEN AND REGULAR. CALL LIGHT WITHIN REACH, BED IN LOW POSITION AND BED ALARM ON.
--- NOTE | 2023-05-29 07:37 | NUR ---
PT RESTING IN BED. BS TAKEN AND COMPLETE. PT REFUSED TO GET UP TO CHAIR FOR BREAKFAST. NO NEEDS. CALL LIGHT WITHIN REACH
[2023-05-29 07:59] VITALS: BP 146/84
--- NOTE | 2023-05-29 08:57 | NUR ---
IN PT ROOM TO COLLECT BREAKFAST TRAY. PT REFUSED BR. NO FURTHER NEEDS. CALL LIGHT WITHIN REACH
--- NOTE | 2023-05-29 09:16 | NUR ---
CHART NOTES FAXED TO BROWN AT [facility] FOR PLACEMENT.
--- NOTE | 2023-05-29 09:53 | NUR ---
DICKT IS UP WITH PT. REPORTS MILD PAIN.
--- NOTE | 2023-05-29 12:09 | NUR ---
ASSISTED PT TO COMMODE WITH HEEL BURNISHER. USING CALL LIGHT APPROPRIATELY. PT REQUESTED PAIN MEDICATION AFTER SITTING BACK IN CHAIR. PRN PAIN MEDICATIONS ADMINISTERED. CALL LIGHT WITHIN REACH AND NO FURTHER NEEDS VOICED BY THE PATIENT.
--- NOTE | 2023-05-29 12:58 | NUR ---
PT IN CHAIR. APPEARED TO BE IN GOOD SPIRITS. EXPRESSED ANTICIPATION OF SUCCESSFUL PHYSICAL THERAPY AND RETURN OF STRENGTH. PRAYED.
--- NOTE | 2023-05-29 13:08 | NUR ---
RECVD CALL FROM BROWN AT [facility], HE FEELS THAT IT IS LIKELY THE PATIENT WILL BE ABLE TO ADMIT THIS AFTERNOON. PATIENT ADVISED, SHE STATES HE WILL BE ABLE TO TRANSPORT. ADVISED WILL UPDATE HER SOON I RECV CONFIRMATION FOR ADMISSION.
--- NOTE | 2023-05-29 13:16 | NUR ---
PER BROWN AT [facility] PATIENT ABLE TO ADMIT THIS AFTERNOON. LEFT MESSAGE WITH DR. VARELA OFFICE REGARDING ORDERS.
[2023-05-29 13:19] VITALS: BP 127/56
[2023-05-29] MEDS ORDERED: OXYCODONE HCL5 MG PO (14:20)
--- NOTE | 2023-05-29 14:42 | NUR ---
PASRR,ORDERS, RX, DC SUMMARY AND MAR FAXED TO [facility] FOR DISCHARGE.
--- NOTE | 2023-05-29 14:45 | NUR ---
OBTAINED DISCHARGE VITAL SIGNS AND ASSISTED PATIENT TO GET DRESSED WITH WATER HAULER.
[2023-05-29 14:56] VITALS: BP 114/69
--- NOTE | 2023-05-29 15:27 | NUR ---
CALLED REPORT TO LINDSAY YEPEZ AT [facility]. PTS ARRIVED FOR TRANSPORT.
== END 2023-05-29 15:34 | disposition home or self-care (01) | DRG 493 ==
LOC: ED 11:00 → MS 11:01
PROVIDERS: ADMIT Specialist; ATTEND Specialist
PROC: 0QSJ04Z Reposition Right Fibula with Internal Fixation Device, Open Approach (ICD-10-PCS; principal; 2023-05-26 07:00)
DX: S82.61XA Displaced fracture of lateral malleolus of right fibula, initial encounter for closed fracture (principal); I13.0 Hypertensive heart and chronic kidney disease with heart failure and stage 1 through stage 4 chronic kidney disease, or unspecified chronic kidney disease; N17.9 Acute kidney failure, unspecified; S93.04XA Dislocation of right ankle joint, initial encounter; E11.40 Type 2 diabetes mellitus with diabetic neuropathy, unspecified; E11.22 Type 2 diabetes mellitus with diabetic chronic kidney disease; I48.91 Unspecified atrial fibrillation; N18.9 Chronic kidney disease, unspecified; I25.10 Atherosclerotic heart disease of native coronary artery without angina pectoris; I50.9 Heart failure, unspecified; I95.9 Hypotension, unspecified; Z79.899 Other long term (current) drug therapy; Z87.891 Personal history of nicotine dependence; Z88.2 Allergy status to sulfonamides; Z90.710 Acquired absence of both cervix and uterus; Z98.890 Other specified postprocedural states; Z91.048 Other nonmedicinal substance allergy status; Z79.84 Long term (current) use of oral hypoglycemic drugs; Z88.8 Allergy status to other drugs, medicaments and biological substances; Z95.828 Presence of other vascular implants and grafts; Z79.01 Long term (current) use of anticoagulants; Z79.4 Long term (current) use of insulin; Z91.198 Patient's noncompliance with other medical treatment and regimen for other reason; Z91.148 Patient's other noncompliance with medication regimen for other reason; W01.0XXA Fall on same level from slipping, tripping and stumbling without subsequent striking against object, initial encounter
CPT/HCPCS: 01480; 36415; 64450; 73610; 76942; 80048; 80053; 85025; 93005; 93010; 96374; 97110; 97116; 97161; 97530; 99285 25; A9270; C1713; C1769; J0690; J1815; J2250; J2704; J3010; J7121

== ENCOUNTER 2024-07-30 15:17 | Emergency (ER) | payer MEDICARE, OTHER ==
[~2024-07-30] VITALS: Ht 160 cm; Wt 83.5 kg
[2024-07-30 17:04] LABS: BILIRUBIN, URINE NEGATIVE (negative); BLOOD/HGB, URINE LARGE (Negative); KETONE, URINE NEGATIVE (Negative); LEUK ESTERASE, URINE NEGATIVE (negative); NITRITE, URINE POSITIVE (negative)
[2024-07-30 17:12] LABS: BACTERIA, URINE 3+ /hpf (negative); CASTS, URINE NONE SEEN \\lpf; COLLECTION TYPE, URINE CATH; CRYSTALS, URINE NONE SEEN (0-1+); EPITHELIAL CELLS, URINE SQUAMOUS 1+ /lpf (0-1+); RED BLOOD CELLS, URINE 21-40 /hpf (0-5); REFLEX CULTURE, URINE Yes (No)
[2024-07-30] MEDS ORDERED: CEFDINIR300 MG PO (18:11)
[2024-07-30] MEDS ORDERED: CEFDINIR 300 MG CAP PO ONE (18:15)
[2024-07-30 18:33] VITALS: BP 119/47
== END 2024-07-30 18:34 | disposition home or self-care (01) ==
LOC: ED 15:17
PROVIDERS: Emergency Medicine
DX: N30.90 Cystitis, unspecified without hematuria (principal); I10 Essential (primary) hypertension; Z87.891 Personal history of nicotine dependence; Z88.2 Allergy status to sulfonamides; Z88.6 Allergy status to analgesic agent; Z88.8 Allergy status to other drugs, medicaments and biological substances; Z91.09 Other allergy status, other than to drugs and biological substances; Z79.899 Other long term (current) drug therapy; Z79.84 Long term (current) use of oral hypoglycemic drugs
CPT/HCPCS: 51701; 81001; 87088; 99284-25